=== PATIENT | female | born 1990 | race Caucasian/White ===

== ENCOUNTER 2016-08-08 12:38 | Emergency (ER) | payer OTHER ==
[~2016-08-08 12:38] MED LIST: /VITACHEW PO; ACET50TA GT; ACET50TA PO; IBUP600T26 PO; TUMS500C PO
[2016-08-08 13:36] LABS: CONTROL LINE UCG INT CTR LINE PRESENT
[2016-08-08] MEDS ORDERED: ONDANSETRON 4MG/2ML VIAL (J2405) As Ordered ONE (14:14)
[2016-08-08] MEDS ORDERED: KETOROLAC 30 MG/ML VIAL (J1885) As Ordered ONE (14:14)
[2016-08-08 14:21] LABS: BASO # 0.1 K/mm3 (0.0-0.2); BASO % 0.9 % (0.0-1.0); EOS # 0.1 K/mm3 (0.0-0.50); EOS % 1.2 % (0.0-3.0); LARGE UNSTAINED CELL # 0.1 K/mm3 (0.0-0.4); LARGE UNSTAINED CELL % 1.4 % (0.0-4.0); LYMPH # 2.6 K/mm3 (1.5-6.5); MEAN CORPUSCULAR HEMOGLOBIN 29.5 pg (27.0-33.0); MEAN CORPUSCULAR HGB CONC 34.4 g/dl (32.0-36.5); MEAN CORPUSCULAR VOLUME 85.8 fl (80.0-96.0); MONO # 0.4 K/mm3 (0.0-0.8); MONO % 5.7 % (0.0-5.0); NEUTROPHILS # 3.7 K/mm3 (1.8-7.7); NEUTROPHILS % 53.8 % (36.0-66.0); PLATELET COUNT, AUTOMATED 174 k/mm3 (150-450); RED CELL DISTRIBUTION WIDTH 12.7 % (11.5-14.5); WHITE BLOOD COUNT 6.9 K/mm3 (4.0-10.0)
--- NOTE | 2016-08-08 14:42 | REP ---
Clinical: Acute lower abdominal pain. Findings: Mural thickening and pericolonic stranding involving the sigmoid colon and small rounded area of fat along the anti mesenteric border of the sigmoid may reflect an acute epiploic appendagitis versus diverticulitis ( images 103 - 110). There is no associated bowel obstruction, free air to suggest perforation, drainable collection, significant free fluid or abscess. The remainder of the small large bowel is unremarkable. Liver, spleen, pancreas, gallbladder, bilateral adrenal glands and kidneys are normal. Pelvis demonstrates collapsed normal bladder and age-appropriate uterus/adnexa. No adenopathy. Abdominal aorta without aneurysm. Surrounding musculoskeletal structures are normal for age. Lung bases are clear. Impression: Acute epiploic appendagitis versus diverticulitis involving the mid sigmoid colon. No associated bowel obstruction, perforation, drainable collection or abscess. Signed by Arnold Fan MD 08/08/2016 02:34 P
[2016-08-08 14:54] LABS: ALBUMIN 3.9 GM/DL (3.2-5.2); ALBUMIN/GLOBULIN RATIO 1.15 (1.00-1.93); ALKALINE PHOSPHATASE 88 U/L (45-117); ALT/SGPT 19 U/L (12-78); AMYLASE 37 U/L (25-115); ANION GAP 8 MEQ/L (8-16); AST/SGOT 13 U/L (15-37); BILIRUBIN,DIRECT 0.1 MG/DL (0.0-0.2); BILIRUBIN,TOTAL 0.6 MG/DL (0.2-1.0); BLOOD UREA NITROGEN 7 MG/DL (7-18); CALCIUM LEVEL 8.9 MG/DL (8.5-10.1); CARBON DIOXIDE LEVEL 27 MEQ/L (21-32); CHLORIDE LEVEL 108 MEQ/L (98-107); GLOMERULAR FILTRATION RATE > 60.0 (>60); GLUCOSE, FASTING 84 MG/DL (70-105); POTASSIUM SERUM 3.6 MEQ/L (3.5-5.1); SODIUM LEVEL 143 MEQ/L (136-145); TOTAL PROTEIN 7.3 GM/DL (6.4-8.2)
[2016-08-08] MEDS ORDERED: CIPROFLOXACIN 500 MG TAB As Ordered ONE (15:32)
[2016-08-08] MEDS ORDERED: metroNIDAZOLE (FLAGYL) 250 MG TAB As Ordered ONE (15:32)
--- NOTE | 2016-08-08 15:40 | EDDOCDS ---
Nurse's Notes [facility] Name: Johanna Rodriguez Age: 26 yrs Sex: Female : 1990 Arrival Date: 08/08/2016 Time: 12:38 Bed I3 / M3 Private MD: Roxann Phan MD Diagnosis: Diverticulitis of large intestine without perforation or abscess without bleeding-mid sigmoid colon versus Acute epiploic appendagitis Presentation: 08/08 12:41 Presenting complaint: Patient states: RLQ and LLQ pain began two days ago, denies mlb1 N/V/D. Risk factors: the patient reports a small or scant amount of vaginal bleeding. Adult Sepsis Screening: The patient does not have new or worsening altered mentation. Patient's respiratory rate is less than 22. Systolic blood pressure is greater than 100. Patient has a qSOFA score of 0- Negative Sepsis Screen. Suicide/Homicide risk assessment- the patient denies having any suicidal and/or homicidal ideations and does not present with any other emotional, behavioral or mental health complaints. 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 Transition of care: patient was not received from another setting of care. 12:41 Acuity: NADINE Level 3 mlb1 12:41 Method Of Arrival: Walkin/Carried/Asstd mlb1 Triage Assessment: 12:43 General: Appears in no apparent distress, Behavior is appropriate for age, cooperative. mlb1 Pain: Location: right lower quadrant and left lower quadrant Pain currently is 9 out of 10 on a pain scale. HIV screening NA for this visit Offered previously. GI: Denies diarrhea, nausea, vomiting. : Reports vaginal bleeding that is spotty. 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 amoxicillin 500 mg Oral cap 1 cap every 12 hours 2. Depo-Provera Q- 3 months IM - PMHx: GERD; Hiatal Hernia; Migraine Headaches; - PSHx: Walt Fundoplication; - Social history: Smoking status: Patient states was never smoker of tobacco. No barriers to communication noted, The patient speaks fluent Czech, Speaks appropriately for age. - Family history: No immediate family members are acutely ill. - : The pt / caregiver states he / she is not on anticoagulants. Home medication list is obtained from the patient. - Exposure Risk Screening:: None identified. Screenin:51 Screening information is obtained from the patient. Fall risk: No risks identified. jc4 Assistance ADL's: requires no assistance with activities of daily living. Abuse/DV Screen: The patient / caregiver reports he/she is: not in a situation that causes fear, pain or injury. Nutritional screening: No deficits noted. Advance Directives: Currently, there is no health care proxy. There is no active DNR order. There is no living will. There is no Power of Home And Family Living Professor. home support is adequate. Assessment: 13:49 General: Appears in no apparent distress, Behavior is cooperative. General: Denies jc4 fever. Neurological: Level of Consciousness is awake, alert, Oriented to person, place, time. Cardiovascular: Heart tones S1 S2 present. Respiratory: Airway is patent Respiratory effort is even, unlabored, Respiratory pattern is regular, symmetrical, Breath sounds are clear bilaterally. GI: Abdomen is non- distended Bowel sounds present X 4 quads. Abd is tender to palpation in right lower quadrant and left lower quadrant. GI: Reports Denies diarrhea, nausea, vomiting. : Reports vaginal bleeding that is spotty. Derm: Skin is pink, warm & dry. 14:31 General: Appears in no apparent distress, comfortable. Neurological: No deficits noted. hs1 Respiratory: Airway is patent Respiratory effort is even, unlabored. Derm: Skin is pink, warm & dry. normal. 15:38 General: Appears in no apparent distress, comfortable, Behavior is appropriate for age, hs1 cooperative. Pain: Location: abdomen Pain currently is 6 out of 10 on a pain scale. Neurological: No deficits noted. Cardiovascular: Heart tones S1 S2 present Edema is absent. Respiratory: Airway is patent Respiratory effort is even, unlabored, Respiratory pattern is regular, symmetrical. GI: Abdomen is non- distended Abd is tender to palpation in right lower quadrant and left lower quadrant. Derm: No deficits noted. Vital Signs: 12:39 BP 131 / 63; Pulse 83; Resp 18; Temp 98.9; Pulse Ox 97% ; Weight 58.97 kg; Height 5 ft. elp 2 in. (157.48 cm); Pain 9/10; 15:33 BP 112 / 57; Pulse 54; Resp 20; Temp 97.5(O); Pulse Ox 98% on R/A; Pain 9/10; jml1 12:39 Body Mass Index 23.78 (58.97 kg, 157.48 cm) [facility] Vitals: 12:39 Log In Time: August 08, 2016 at 12:37. elp ED Course: 12:39 Patient visited by Kaylie Francis PCA. elp 12:39 Roxann Phan is Private Physician. elp 12:39 Patient moved to Waiting elp 12:40 Patient visited by Kaylie Francis PCA. elp 12:40 Patient moved to Pre RCE elp 12:41 Patient visited by Chad Ward, RN. mlb1 12:42 Triage Initiated mlb1 12:44 Patient visited by Chad Ward, RN. mlb1 13:44 [facility]am[facility]. ef1 13:44 Meredith Varghese MD is Attending Physician. ef1 13:46 Carie Gar RN is Primary Nurse. rn1 13:46 Patient moved to I3 / M3 rn1 13:48 The patient / caregiver is instructed regarding the plan of care and ED course. jc4 13:49 Patient visited by Anamaria Chavarria PA-C. ef1 14:00 Inserted saline lock: 20 gauge in left antecubital area and blood collected. The hs1 patient tolerated the procedure well. 14:13 Amylase Sent. hs1 14:13 Basic Metabolic Profile Sent. hs1 14:13 CBC with Diff Sent. hs1 14:13 Lipase Sent. hs1 14:13 Liver Profile Sent. hs1 14:22 Patient visited by Anamaria Chavarria PA-C. ef1 14:58 Patient visited by Alba Nickerson, MAU. hs1 15:02 CT ABD & PELVIS: No Contrast Returned. EDMS 15:17 Patient visited by Anamaria Chavarria PA-C. ef1 15:28 Roxann Phan is Referral Physician. ef1 15:28 Nj Watkins DO is Referral Physician. ef1 15:33 Patient visited by Elliott Wells. jml1 15:39 Discontinued IV lock intact, bleeding controlled, pressure dressing applied, No hs1 redness/swelling at site. No procedures done that require assistance. Administered Medications: 14:20 Drug: NS 0.9% 1000 ml [sodium chloride 0.9 % intravenous solution] Route: IV; Rate: hs1 bolus; Site: left antecubital; 15:38 Follow up: IV Status: Completed infusion; IV Intake: 1000ml hs1 14:20 Drug: Ondansetron 4 mg [ondansetron HCl 2 mg/mL intravenous solution (2 mL)] Route: hs1 IVP; Site: left antecubital; 14:20 Drug: ketorolac 30 mg [ketorolac 30 mg/mL (1 mL) injection solution (1 mL)] Route: IVP; hs1 Site: left antecubital; 15:38 Drug: Ciprofloxacin 500 mg [ciprofloxacin 500 mg tablet (1 tabs)] Route: PO; hs1 15:38 Drug: metroNIDAZOLE 500 mg [metronidazole 250 mg tablet (2 tabs)] Route: PO; hs1 Intake: 15:38 IV: 1000.00ml; Total: 1000.00ml. hs1 Order Results: Lab Order: UA; SPEC'M 08/08/16 13:05 Test: APPEARANCE, URINE; Value: HAZY; Range: CLEAR; Status: F Test: COLOR, URINE; Value: YELLOW; Range: YELLOW; Status: F Test: PH,URINE; Value: 6.0; Range: 5.0-9.0; Units: UNITS; Status: F Test: SPECIFIC GRAVITY URINE AUTO; Value: 1.020; Range: 1.002-1.035; Status: F Test: PROTEIN, URINE AUTO; Value: NEGATIVE; Range: NEGATIVE; Units: mg/dL; Status: F Test: GLUCOSE, URINE (UA) AUTO; Value: NEGATIVE; Range: NEGATIVE; Units: mg/dL; Status: F Test: KETONE, URINE AUTO; Value: NEGATIVE; Range: NEGATIVE; Units: mg/dL; Status: F Test: UROBILINOGEN, URINE AUTO; Value: 2.0; Range: 0.0-2.0; Abnormal: Above high normal; Units: mg/dL; Status: F Test: BILIRUBIN, URINE AUTO; Value: NEGATIVE; Range: NEGATIVE; Status: F Test: NITRITE, URINE AUTO; Value: NEGATIVE; Range: NEGATIVE; Status: F Test: LEUKOCYTE ESTERASE, URINE AUTO; Value: TRACE; Range: NEGATIVE; Abnormal: Above high normal; Status: F Test: BLOOD, URINE BLOOD; Value: 2+; Range: NEGATIVE; Abnormal: Above high normal; Status: F Test: SPERM, URINE AUTO; Range: NONE; Status: I Test: WBC, URINE AUTO; Value: 1; Range: 0-3; Units: /HPF; Status: F Test: RBC, URINE AUTO; Value: 8; Range: 0-3; Abnormal: Above high normal; Units: /HPF; Status: F Test: BACTERIA, URINE AUTO; Value: NEGATIVE; Range: NEGATIVE; Status: F Test: SQUAMOUS EPITHELIAL CELL UR AU; Value: 2; Range: 0-6; Units: /HPF; Status: F Test: MUCUS, URINE; Value: LARGE; Range: NEGATIVE; Status: F Test: HYALINE CAST, URINE AUTO; Value: 0; Range: 0-1; Units: /LPF; Status: F Lab Order: UCG- In Lab; [facility]' 08/08/16 13:05 Test: URINE PREG TEST; Value: NEGATIVE; Range: NEGATIVE; Status: F Lab Order: Amylase; [facility] 08/08/16 14:11 Test: AMYLASE; Value: 37; Range: 25-115; Units: U/L; Status: F Lab Order: Basic Metabolic Profile; [facility] 08/08/16 14:11 Test: GLUCOSE, FASTING; Value: 84; Range: 70-105; Units: MG/DL; Status: F Test: BLOOD UREA NITROGEN; Value: 7; Range: 7-18; Units: MG/DL; Status: F Test: CREATININE FOR GFR; Value: 0.70; Range: 0.55-1.02; Units: MG/DL; Status: F Test: GLOMERULAR FILTRATION RATE; Value: > 60.0; Range: >60; Status: F Test: SODIUM LEVEL; Value: 143; Range: 136-145; Units: MEQ/L; Status: F Test: POTASSIUM SERUM; Value: 3.6; Range: 3.5-5.1; Units: MEQ/L; Status: F Test: CHLORIDE LEVEL; Value: 108; Range: 98-107; Abnormal: Above high normal; Units: MEQ/L; Status: F Test: CARBON DIOXIDE LEVEL; Value: 27; Range: 21-32; Units: MEQ/L; Status: F Test: ANION GAP; Value: 8; Range: 8-16; Units: MEQ/L; Status: F Test: CALCIUM LEVEL; Value: 8.9; Range: 8.5-10.1; Units: MG/DL; Status: F Test Note: ; Units are mL/min/1.73 m2 Chronic Kidney Disease Staging per NKF: Stage I & II GFR >=60 Normal to Mildly Decreased Stage III GFR 30-59 Moderately Decreased Stage IV GFR 15-29 Severely Decreased Stage V GFR <15 Very Little GFR Left ESRD GFR <15 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 Lab Order: CBC with Diff; SPEC'M 08/08/16 14:11 Test: WHITE BLOOD COUNT; Value: 6.9; Range: 4.0-10.0; Units: K/mm3; Status: F Test: RED BLOOD COUNT; Value: 4.29; Range: 4.00-5.40; Units: M/mm3; Status: F Test: HEMOGLOBIN; Value: 12.7; Range: 12.0-16.0; Units: g/dl; Status: F Test: HEMATOCRIT; Value: 36.8; Range: 36.0-47.0; Units: %; Status: F Test: MEAN CORPUSCULAR VOLUME; Value: 85.8; Range: 80.0-96.0; Units: fl; Status: F Test: MEAN CORPUSCULAR HEMOGLOBIN; Value: 29.5; Range: 27.0-33.0; Units: pg; Status: F Test: MEAN CORPUSCULAR HGB CONC; Value: 34.4; Range: 32.0-36.5; Units: g/dl; Status: F Test: RED CELL DISTRIBUTION WIDTH; Value: 12.7; Range: 11.5-14.5; Units: %; Status: F Test: PLATELET COUNT, AUTOMATED; Value: 174; Range: 150-450; Units: k/mm3; Status: F Test: NEUTROPHILS %; Value: 53.8; Range: 36.0-66.0; Units: %; Status: F Test: LYMPH %; Value: 37.0; Range: 24.0-44.0; Units: %; Status: F Test: MONO %; Value: 5.7; Range: 0.0-5.0; Abnormal: Above high normal; Units: %; Status: F Test: EOS %; Value: 1.2; Range: 0.0-3.0; Units: %; Status: F Test: BASO %; Value: 0.9; Range: 0.0-1.0; Units: %; Status: F Test: LARGE UNSTAINED CELL %; Value: 1.4; Range: 0.0-4.0; Units: %; Status: F Test: NEUTROPHILS #; Value: 3.7; Range: 1.8-7.7; Units: K/mm3; Status: F Test: LYMPH #; Value: 2.6; Range: 1.5-6.5; Units: K/mm3; Status: F Test: MONO #; Value: 0.4; Range: 0.0-0.8; Units: K/mm3; Status: F Test: EOS #; Value: 0.1; Range: 0.0-0.50; Units: K/mm3; Status: F Test: BASO #; Value: 0.1; Range: 0.0-0.2; Units: K/mm3; Status: F Test: LARGE UNSTAINED CELL #; Value: 0.1; Range: 0.0-0.4; Units: K/mm3; Status: F Lab Order: Lipase; SPEC'M 08/08/16 14:11 Test: LIPASE; Value: 84; Range: 73-393; Units: U/L; Status: F Lab Order: Liver Profile; SPEC' 08/08/16 14:11 Test: AST/SGOT; Value: 13; Range: 15-37; Abnormal: Below low normal; Units: U/L; Status: F Test: ALT/SGPT; Value: 19; Range: 12-78; Units: U/L; Status: F Test: ALKALINE PHOSPHATASE; Value: 88; Range: 45-117; Units: U/L; Status: F Test: BILIRUBIN,TOTAL; Value: 0.6; Range: 0.2-1.0; Units: MG/DL; Status: F Test: BILIRUBIN,DIRECT; Value: 0.1; Range: 0.0-0.2; Units: MG/DL; Status: F Test: TOTAL PROTEIN; Value: 7.3; Range: 6.4-8.2; Units: GM/DL; Status: F Test: ALBUMIN; Value: 3.9; Range: 3.2-5.2; Units: GM/DL; Status: F Test: ALBUMIN/GLOBULIN RATIO; Value: 1.15; Range: 1.00-1.93; Status: F Radiology Order: CT ABD & PELVIS: No Contrast Test: CT ABD & PELVIS: No Contrast REASON FOR EXAMINATION: Abdomen Pain; Clinical: Acute lower abdominal pain.; ; Findings:; Mural thickening and pericolonic stranding involving the sigmoid colon and small; rounded area of fat along the anti mesenteric border of the sigmoid may reflect; an acute epiploic appendagitis versus diverticulitis ( images 103 - 110). There; is no associated bowel obstruction, free air to suggest perforation, drainable; collection, significant free fluid or abscess. The remainder of the small large; bowel is unremarkable.; ; Liver, spleen, pancreas, gallbladder, bilateral adrenal glands and kidneys are; normal. Pelvis demonstrates collapsed normal bladder and age-appropriate; uterus/adnexa. No adenopathy. Abdominal aorta without aneurysm. Surrounding; musculoskeletal structures are normal for age. Lung bases are clear.; ; Impression:; ; Acute epiploic appendagitis versus diverticulitis involving the mid sigmoid; colon. No associated bowel obstruction, perforation, drainable collection or; abscess.; ; ; ; Signed by; Arnold Fan MD 08/08/2016 02:34 P; Outcome: 15:28 Discharge ordered by Provider. ef1 15:39 Discharge Assessment: Patient awake, alert and oriented x 3. No cognitive and/or hs1 functional deficits noted. Patient verbalized understanding of disposition instructions. patient administered narcotics - no. The following High Risk Discharge criteria are identified: None. Discharged to home ambulatory. Condition: stable. Discharge instructions given to patient, Instructed on discharge instructions, follow up and referral plans. medication usage, Demonstrated understanding of instructions, medications, Pt was receptive of discharge instructions/ teaching. Prescriptions given X 5. CT Study completed. Property sent home with patient. 15:39 Patient left the ED. hs1 Signatures: Dispatcher [employer] EDME Chad Ward RN RN mlb1 Anamaria Chavarria, PADavidC PA-C ef1 Alba Nickerson RN RN hs1 Carie Gar RN RN jc4 Elliott Wells jmKaylie Brown, JOSE LUIS BOAT CARPENTER MECHANIC elp Samuel, Randal rn1 MTDD
--- NOTE | 2016-08-08 15:40 | EDDOCDS ---
Physician Documentation [facility] Name: Johanna Rodriguez Age: 26 yrs Sex: Female : 1990 Arrival Date: 08/08/2016 Time: 12:38 Bed I3 / M3 Private MD: Roxann Phan MD Disposition: 08/08/16 15:28 Discharged to Home/Self Care. Impression: Diverticulitis of large intestine without perforation or abscess without bleeding - mid sigmoid colon versus Acute epiploic appendagitis. - Condition is Stable. - Discharge Instructions: Diverticulitis, [id number]. - Prescriptions for Cipro 500 mg Oral Tablet - take 1 tablet by ORAL route every 12 hours for 10 days; 20 tablet. Flagyl 500 mg Oral Tablet - take 1 tablet by ORAL route every 12 hours for 10 days; 20 tablet. Naprosyn 500 mg Oral Tablet - take 1 tablet by ORAL route 2 times per day take with food; 30 tablet. ZOFRAN ODT 4 mg - dissolve 1 tablet by ORAL route 4 times per day As needed do not chew, do not swallow whole; 10 tablet. Percocet 5- 325 mg Oral Tablet - take 1 tablet by ORAL route every 6 hours As needed MDD: 4 tabs; 10 tablet. - Medication Reconciliation, Local Pharmacy Hours form. - Follow up: Roxann Phan; When: 1 - 2 days; Reason: Recheck today's complaints, Continuance of care. Follow up: Emergency Department; Reason: Worsening of conditions. Follow up: Nj Watkins; When: 1 - 2 days; Reason: Further diagnostic work-up, Recheck today's complaints, Continuance of care. - Problem is new. - Symptoms have improved. Historical: - Allergies: PENICILLINS (Vomit); - Home Meds: 1. amoxicillin 500 mg Oral cap 1 cap every 12 hours 2. Depo-Provera Q- 3 months IM - PMHx: GERD; Hiatal Hernia; Migraine Headaches; - PSHx: Walt Fundoplication; - Social history: Smoking status: Patient states was never smoker of tobacco. No barriers to communication noted, The patient speaks fluent Urdu, Speaks appropriately for age. - Family history: No immediate family members are acutely ill. - : The pt / caregiver states he / she is not on anticoagulants. Home medication list is obtained from the patient. - Exposure Risk Screening:: None identified. 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 2 in. (157.48 cm); Pain 9/10; 15:33 BP 112 / 57; Pulse 54; Resp 20; Temp 97.5(O); Pulse Ox 98% on R/A; Pain 9/10; jml1 12:39 Body Mass Index 23.78 (58.97 kg, 157.48 cm) elp MDM: 12:56 UA Ordered. EDMS 12:56 UCG- In Lab Ordered. EDMS 12:56 Urine Culture Ordered. EDMS 13:52 UA Reviewed. ef1 13:52 UCG- In Lab Reviewed. ef1 14:00 NS 0.9% 1000 ml IV at bolus once ordered. ef1 14:00 Ondansetron 4 mg IVP once ordered. ef1 14:00 ketorolac 30 mg IVP once ordered. ef1 14:00 IV Saline Lock ordered. ef1 14:00 Undress patient appropriately for examination ordered. ef1 14:01 Amylase Ordered. EDMS 14:01 Basic Metabolic Profile Ordered. EDMS 14:01 CBC with Diff Ordered. EDMS 14:01 Lipase Ordered. EDMS 14:01 Liver Profile Ordered. EDMS 14:01 CT ABD & PELVIS: No Contrast Ordered. EDMS 14:01 NOTHING BY MOUTH+DIET ordered. EDMS 15:00 Basic Metabolic Profile Reviewed. ef1 15:00 CBC with Diff Reviewed. ef1 15:00 Liver Profile Reviewed. ef1 15:00 Amylase Reviewed. ef1 15:00 Lipase Reviewed. ef1 15:17 CT ABD & PELVIS: No Contrast Reviewed. ef1 15:28 Ciprofloxacin 500 mg PO once ordered. ef1 15:28 metroNIDAZOLE 500 mg PO once ordered. ef1 Administered Medications: 14:20 Drug: NS 0.9% 1000 ml [sodium chloride 0.9 % intravenous solution] Route: IV; Rate: hs1 bolus; Site: left antecubital; 15:38 Follow up: IV Status: Completed infusion; IV Intake: 1000ml hs1 14:20 Drug: Ondansetron 4 mg [ondansetron HCl 2 mg/mL intravenous solution (2 mL)] Route: hs1 IVP; Site: left antecubital; 14:20 Drug: ketorolac 30 mg [ketorolac 30 mg/mL (1 mL) injection solution (1 mL)] Route: IVP; hs1 Site: left antecubital; 15:38 Drug: Ciprofloxacin 500 mg [ciprofloxacin 500 mg tablet (1 tabs)] Route: PO; hs1 15:38 Drug: metroNIDAZOLE 500 mg [metronidazole 250 mg tablet (2 tabs)] Route: PO; hs1 Signatures: Dispatcher [employer] EDChad Hylton RN RN mlb1 Anamaria Chavarria PA-C PAJuan ef1 Alba Nickerson RN RN hs1 Carie Gar RN RN jc4 MTDD
--- NOTE | 2016-08-10 16:40 | EDDOCDS ---
Nurse's Notes [facility] Name: Johanna Rodriguez Age: 26 yrs Sex: Female : 1990 Arrival Date: 08/08/2016 Time: 12:38 Bed I3 / M3 Private MD: Roxann Phan MD Diagnosis: Diverticulitis of large intestine without perforation or abscess without bleeding-mid sigmoid colon versus Acute epiploic appendagitis Presentation: 08/08 12:41 Presenting complaint: Patient states: RLQ and LLQ pain began two days ago, denies mlb1 N/V/D. Risk factors: the patient reports a small or scant amount of vaginal bleeding. Adult Sepsis Screening: The patient does not have new or worsening altered mentation. Patient's respiratory rate is less than 22. Systolic blood pressure is greater than 100. Patient has a qSOFA score of 0- Negative Sepsis Screen. Suicide/Homicide risk assessment- the patient denies having any suicidal and/or homicidal ideations and does not present with any other emotional, behavioral or mental health complaints. 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 Transition of care: patient was not received from another setting of care. 12:41 Acuity: NADINE Level 3 mlb1 12:41 Method Of Arrival: Walkin/Carried/Asstd mlb1 Triage Assessment: 12:43 General: Appears in no apparent distress, Behavior is appropriate for age, cooperative. mlb1 Pain: Location: right lower quadrant and left lower quadrant Pain currently is 9 out of 10 on a pain scale. HIV screening NA for this visit Offered previously. GI: Denies diarrhea, nausea, vomiting. : Reports vaginal bleeding that is spotty. 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 amoxicillin 500 mg Oral cap 1 cap every 12 hours 2. Depo-Provera Q- 3 months IM - PMHx: GERD; Hiatal Hernia; Migraine Headaches; - PSHx: Walt Fundoplication; - Social history: Smoking status: Patient states was never smoker of tobacco. No barriers to communication noted, The patient speaks fluent Wolof, Speaks appropriately for age. - Family history: No immediate family members are acutely ill. - : The pt / caregiver states he / she is not on anticoagulants. Home medication list is obtained from the patient. - Exposure Risk Screening:: None identified. Screenin:51 Screening information is obtained from the patient. Fall risk: No risks identified. jc4 Assistance ADL's: requires no assistance with activities of daily living. Abuse/DV Screen: The patient / caregiver reports he/she is: not in a situation that causes fear, pain or injury. Nutritional screening: No deficits noted. Advance Directives: Currently, there is no health care proxy. There is no active DNR order. There is no living will. There is no Power of Culinary Specialist. home support is adequate. Assessment: 13:49 General: Appears in no apparent distress, Behavior is cooperative. General: Denies jc4 fever. Neurological: Level of Consciousness is awake, alert, Oriented to person, place, time. Cardiovascular: Heart tones S1 S2 present. Respiratory: Airway is patent Respiratory effort is even, unlabored, Respiratory pattern is regular, symmetrical, Breath sounds are clear bilaterally. GI: Abdomen is non- distended Bowel sounds present X 4 quads. Abd is tender to palpation in right lower quadrant and left lower quadrant. GI: Reports Denies diarrhea, nausea, vomiting. : Reports vaginal bleeding that is spotty. Derm: Skin is pink, warm & dry. 14:31 General: Appears in no apparent distress, comfortable. Neurological: No deficits noted. hs1 Respiratory: Airway is patent Respiratory effort is even, unlabored. Derm: Skin is pink, warm & dry. normal. 15:38 General: Appears in no apparent distress, comfortable, Behavior is appropriate for age, hs1 cooperative. Pain: Location: abdomen Pain currently is 6 out of 10 on a pain scale. Neurological: No deficits noted. Cardiovascular: Heart tones S1 S2 present Edema is absent. Respiratory: Airway is patent Respiratory effort is even, unlabored, Respiratory pattern is regular, symmetrical. GI: Abdomen is non- distended Abd is tender to palpation in right lower quadrant and left lower quadrant. Derm: No deficits noted. Vital Signs: 12:39 BP 131 / 63; Pulse 83; Resp 18; Temp 98.9; Pulse Ox 97% ; Weight 58.97 kg; Height 5 ft. elp 2 in. (157.48 cm); Pain 9/10; 15:33 BP 112 / 57; Pulse 54; Resp 20; Temp 97.5(O); Pulse Ox 98% on R/A; Pain 9/10; jml1 12:39 Body Mass Index 23.78 (58.97 kg, 157.48 cm) [facility] Vitals: 12:39 Log In Time: August 08, 2016 at 12:37. elp ED Course: 12:39 Patient visited by Kaylie Francis PCA. elp 12:39 Roxann Phan is Private Physician. elp 12:39 Patient moved to Waiting elp 12:40 Patient visited by Kaylie Francis PCA. elp 12:40 Patient moved to Pre RCE elp 12:41 Patient visited by Chad Ward, RN. mlb1 12:42 Triage Initiated mlb1 12:44 Patient visited by Chad Ward, RN. mlb1 13:44 Anamaria [facility] ef1 13:44 Meredith Varghese MD is Attending Physician. ef1 13:46 Carie Gar, MAU is Primary Nurse. rn1 13:46 Patient moved to I3 / M3 rn1 13:48 The patient / caregiver is instructed regarding the plan of care and ED course. jc4 13:49 Patient visited by Anamaria Chavarria PA-C. ef1 14:00 Inserted saline lock: 20 gauge in left antecubital area and blood collected. The hs1 patient tolerated the procedure well. 14:13 Amylase Sent. hs1 14:13 Basic Metabolic Profile Sent. hs1 14:13 CBC with Diff Sent. hs1 14:13 Lipase Sent. hs1 14:13 Liver Profile Sent. hs1 14:22 Patient visited by Anamaria Chavarria PA-C. ef1 14:58 Patient visited by Alba Nickerson, MAU. hs1 15:02 CT ABD & PELVIS: No Contrast Returned. EDMS 15:17 Patient visited by Anamaria Chavarria PA-C. ef1 15:28 Roxann Phan is Referral Physician. ef1 15:28 Nj Watkins DO is Referral Physician. ef1 15:33 Patient visited by Elliott Wells. jml1 15:39 Discontinued IV lock intact, bleeding controlled, pressure dressing applied, No hs1 redness/swelling at site. No procedures done that require assistance. 15:49 [facility] [place] [facility] Payment Agreement was scanned into [employer] and attached to record. ks16 08/09 05:51 T-Sheet-- Draft Copy was scanned into [employer] and attached to record. hs2 12:50 Radiology Report was scanned into [employer] and attached to record. gb Administered Medications: 08/08 14:20 Drug: NS 0.9% 1000 ml [sodium chloride 0.9 % intravenous solution] Route: IV; Rate: hs1 bolus; Site: left antecubital; 15:38 Follow up: IV Status: Completed infusion; IV Intake: 1000ml hs1 14:20 Drug: Ondansetron 4 mg [ondansetron HCl 2 mg/mL intravenous solution (2 mL)] Route: hs1 IVP; Site: left antecubital; 14:20 Drug: ketorolac 30 mg [ketorolac 30 mg/mL (1 mL) injection solution (1 mL)] Route: IVP; hs1 Site: left antecubital; 15:38 Drug: Ciprofloxacin 500 mg [ciprofloxacin 500 mg tablet (1 tabs)] Route: PO; hs1 15:38 Drug: metroNIDAZOLE 500 mg [metronidazole 250 mg tablet (2 tabs)] Route: PO; hs1 Intake: 15:38 IV: 1000.00ml; Total: 1000.00ml. hs1 Order Results: Lab Order: UA; SPEC'M 08/08/16 13:05 Test: APPEARANCE, URINE; Value: HAZY; Range: CLEAR; Status: F Test: COLOR, URINE; Value: YELLOW; Range: YELLOW; Status: F Test: PH,URINE; Value: 6.0; Range: 5.0-9.0; Units: UNITS; Status: F Test: SPECIFIC GRAVITY URINE AUTO; Value: 1.020; Range: 1.002-1.035; Status: F Test: PROTEIN, URINE AUTO; Value: NEGATIVE; Range: NEGATIVE; Units: mg/dL; Status: F Test: GLUCOSE, URINE (UA) AUTO; Value: NEGATIVE; Range: NEGATIVE; Units: mg/dL; Status: F Test: KETONE, URINE AUTO; Value: NEGATIVE; Range: NEGATIVE; Units: mg/dL; Status: F Test: UROBILINOGEN, URINE AUTO; Value: 2.0; Range: 0.0-2.0; Abnormal: Above high normal; Units: mg/dL; Status: F Test: BILIRUBIN, URINE AUTO; Value: NEGATIVE; Range: NEGATIVE; Status: F Test: NITRITE, URINE AUTO; Value: NEGATIVE; Range: NEGATIVE; Status: F Test: LEUKOCYTE ESTERASE, URINE AUTO; Value: TRACE; Range: NEGATIVE; Abnormal: Above high normal; Status: F Test: BLOOD, URINE BLOOD; Value: 2+; Range: NEGATIVE; Abnormal: Above high normal; Status: F Test: SPERM, URINE AUTO; Range: NONE; Status: I Test: WBC, URINE AUTO; Value: 1; Range: 0-3; Units: /HPF; Status: F Test: RBC, URINE AUTO; Value: 8; Range: 0-3; Abnormal: Above high normal; Units: /HPF; Status: F Test: BACTERIA, URINE AUTO; Value: NEGATIVE; Range: NEGATIVE; Status: F Test: SQUAMOUS EPITHELIAL CELL UR AU; Value: 2; Range: 0-6; Units: /HPF; Status: F Test: MUCUS, URINE; Value: LARGE; Range: NEGATIVE; Status: F Test: HYALINE CAST, URINE AUTO; Value: 0; Range: 0-1; Units: /LPF; Status: F Lab Order: Urine Culture; [facility]' 08/08/16 13:05 Test: URINE CULTURE; Value: URINE CULTURE RESULT NO GROWTH; Status: F Lab Order: UCG- In Lab; [facility] 08/08/16 13:05 Test: URINE PREG TEST; Value: NEGATIVE; Range: NEGATIVE; Status: F Lab Order: Amylase; [facility]' 08/08/16 14:11 Test: AMYLASE; Value: 37; Range: 25-115; Units: U/L; Status: F Lab Order: Basic Metabolic Profile; [facility] 08/08/16 14:11 Test: GLUCOSE, FASTING; Value: 84; Range: 70-105; Units: MG/DL; Status: F Test: BLOOD UREA NITROGEN; Value: 7; Range: 7-18; Units: MG/DL; Status: F Test: CREATININE FOR GFR; Value: 0.70; Range: 0.55-1.02; Units: MG/DL; Status: F Test: GLOMERULAR FILTRATION RATE; Value: > 60.0; Range: >60; Status: F Test: SODIUM LEVEL; Value: 143; Range: 136-145; Units: MEQ/L; Status: F Test: POTASSIUM SERUM; Value: 3.6; Range: 3.5-5.1; Units: MEQ/L; Status: F Test: CHLORIDE LEVEL; Value: 108; Range: 98-107; Abnormal: Above high normal; Units: MEQ/L; Status: F Test: CARBON DIOXIDE LEVEL; Value: 27; Range: 21-32; Units: MEQ/L; Status: F Test: ANION GAP; Value: 8; Range: 8-16; Units: MEQ/L; Status: F Test: CALCIUM LEVEL; Value: 8.9; Range: 8.5-10.1; Units: MG/DL; Status: F Test Note: ; Units are mL/min/1.73 m2 Chronic Kidney Disease Staging per NKF: Stage I & II GFR >=60 Normal to Mildly Decreased Stage III GFR 30-59 Moderately Decreased Stage IV GFR 15-29 Severely Decreased Stage V GFR <15 Very Little GFR Left ESRD GFR <15 on WIRE ANNEALER Lab Order: CBC with Diff; SPEC'M 08/08/16 14:11 Test: WHITE BLOOD COUNT; Value: 6.9; Range: 4.0-10.0; Units: K/mm3; Status: F Test: RED BLOOD COUNT; Value: 4.29; Range: 4.00-5.40; Units: M/mm3; Status: F Test: HEMOGLOBIN; Value: 12.7; Range: 12.0-16.0; Units: g/dl; Status: F Test: HEMATOCRIT; Value: 36.8; Range: 36.0-47.0; Units: %; Status: F Test: MEAN CORPUSCULAR VOLUME; Value: 85.8; Range: 80.0-96.0; Units: fl; Status: F Test: MEAN CORPUSCULAR HEMOGLOBIN; Value: 29.5; Range: 27.0-33.0; Units: pg; Status: F Test: MEAN CORPUSCULAR HGB CONC; Value: 34.4; Range: 32.0-36.5; Units: g/dl; Status: F Test: RED CELL DISTRIBUTION WIDTH; Value: 12.7; Range: 11.5-14.5; Units: %; Status: F Test: PLATELET COUNT, AUTOMATED; Value: 174; Range: 150-450; Units: k/mm3; Status: F Test: NEUTROPHILS %; Value: 53.8; Range: 36.0-66.0; Units: %; Status: F Test: LYMPH %; Value: 37.0; Range: 24.0-44.0; Units: %; Status: F Test: MONO %; Value: 5.7; Range: 0.0-5.0; Abnormal: Above high normal; Units: %; Status: F Test: EOS %; Value: 1.2; Range: 0.0-3.0; Units: %; Status: F Test: BASO %; Value: 0.9; Range: 0.0-1.0; Units: %; Status: F Test: LARGE UNSTAINED CELL %; Value: 1.4; Range: 0.0-4.0; Units: %; Status: F Test: NEUTROPHILS #; Value: 3.7; Range: 1.8-7.7; Units: K/mm3; Status: F Test: LYMPH #; Value: 2.6; Range: 1.5-6.5; Units: K/mm3; Status: F Test: MONO #; Value: 0.4; Range: 0.0-0.8; Units: K/mm3; Status: F Test: EOS #; Value: 0.1; Range: 0.0-0.50; Units: K/mm3; Status: F Test: BASO #; Value: 0.1; Range: 0.0-0.2; Units: K/mm3; Status: F Test: LARGE UNSTAINED CELL #; Value: 0.1; Range: 0.0-0.4; Units: K/mm3; Status: F Lab Order: Lipase; SPEC'M 08/08/16 14:11 Test: LIPASE; Value: 84; Range: 73-393; Units: U/L; Status: F Lab Order: Liver Profile; SPEC'M 08/08/16 14:11 Test: AST/SGOT; Value: 13; Range: 15-37; Abnormal: Below low normal; Units: U/L; Status: F Test: ALT/SGPT; Value: 19; Range: 12-78; Units: U/L; Status: F Test: ALKALINE PHOSPHATASE; Value: 88; Range: 45-117; Units: U/L; Status: F Test: BILIRUBIN,TOTAL; Value: 0.6; Range: 0.2-1.0; Units: MG/DL; Status: F Test: BILIRUBIN,DIRECT; Value: 0.1; Range: 0.0-0.2; Units: MG/DL; Status: F Test: TOTAL PROTEIN; Value: 7.3; Range: 6.4-8.2; Units: GM/DL; Status: F Test: ALBUMIN; Value: 3.9; Range: 3.2-5.2; Units: GM/DL; Status: F Test: ALBUMIN/GLOBULIN RATIO; Value: 1.15; Range: 1.00-1.93; Status: F Radiology Order: CT ABD & PELVIS: No Contrast Test: CT ABD & PELVIS: No Contrast REASON FOR EXAMINATION: Abdomen Pain; Clinical: Acute lower abdominal pain.; ; Findings:; Mural thickening and pericolonic stranding involving the sigmoid colon and small; rounded area of fat along the anti mesenteric border of the sigmoid may reflect; an acute epiploic appendagitis versus diverticulitis ( images 103 - 110). There; is no associated bowel obstruction, free air to suggest perforation, drainable; collection, significant free fluid or abscess. The remainder of the small large; bowel is unremarkable.; ; Liver, spleen, pancreas, gallbladder, bilateral adrenal glands and kidneys are; normal. Pelvis demonstrates collapsed normal bladder and age-appropriate; uterus/adnexa. No adenopathy. Abdominal aorta without aneurysm. Surrounding; musculoskeletal structures are normal for age. Lung bases are clear.; ; Impression:; ; Acute epiploic appendagitis versus diverticulitis involving the mid sigmoid; colon. No associated bowel obstruction, perforation, drainable collection or; abscess.; ; ; ; Signed by; Arnlod Fan MD 08/08/2016 02:34 P; Outcome: 15:28 Discharge ordered by Provider. ef1 15:39 Discharge Assessment: Patient awake, alert and oriented x 3. No cognitive and/or hs1 functional deficits noted. Patient verbalized understanding of disposition instructions. patient administered narcotics - no. The following High Risk Discharge criteria are identified: None. Discharged to home ambulatory. Condition: stable. Discharge instructions given to patient, Instructed on discharge instructions, follow up and referral plans. medication usage, Demonstrated understanding of instructions, medications, Pt was receptive of discharge instructions/ teaching. Prescriptions given X 5. CT Study completed. Property sent home with patient. 15:39 Patient left the ED. hs1 Signatures: Dispatcher [employer] EDMS Nina Harrison, Reg Reg gb Chad Ward RN RN mlb1 Anamaria Chavarria, PA-C PA-C ef1 Alba Nickerson RN RN hs1 Carie Gar RN RN jc4 Elliott Wells jml1 Kaylie Francis, ORCHARD MANAGER ORCHARD MANAGER Randal Monique rn1 Romina Mendez, Reg Reg ks16 Jenny Pritchett, Reg Reg hs2 Chart Complete MTDD
--- NOTE | 2016-08-10 16:40 | EDDOCDS ---
Physician Documentation [facility] Name: Johanna Rodriguez Age: 26 yrs Sex: Female : 1990 Arrival Date: 08/08/2016 Time: 12:38 Bed I3 / M3 Private MD: Roxann Phan MD Disposition: 08/08/16 15:28 Discharged to Home/Self Care. Impression: Diverticulitis of large intestine without perforation or abscess without bleeding - mid sigmoid colon versus Acute epiploic appendagitis. - Condition is Stable. - Discharge Instructions: Diverticulitis, [id number]. - Prescriptions for Cipro 500 mg Oral Tablet - take 1 tablet by ORAL route every 12 hours for 10 days; 20 tablet. Flagyl 500 mg Oral Tablet - take 1 tablet by ORAL route every 12 hours for 10 days; 20 tablet. Naprosyn 500 mg Oral Tablet - take 1 tablet by ORAL route 2 times per day take with food; 30 tablet. ZOFRAN ODT 4 mg - dissolve 1 tablet by ORAL route 4 times per day As needed do not chew, do not swallow whole; 10 tablet. Percocet 5- 325 mg Oral Tablet - take 1 tablet by ORAL route every 6 hours As needed MDD: 4 tabs; 10 tablet. - Medication Reconciliation, Local Pharmacy Hours form. - Follow up: Roxann Phan; When: 1 - 2 days; Reason: Recheck today's complaints, Continuance of care. Follow up: Emergency Department; Reason: Worsening of conditions. Follow up: Nj Watkins; When: 1 - 2 days; Reason: Further diagnostic work-up, Recheck today's complaints, Continuance of care. - Problem is new. - Symptoms have improved. Historical: - Allergies: PENICILLINS (Vomit); - Home Meds: 1. amoxicillin 500 mg Oral cap 1 cap every 12 hours 2. Depo-Provera Q- 3 months IM - PMHx: GERD; Hiatal Hernia; Migraine Headaches; - PSHx: Walt Fundoplication; - Social history: Smoking status: Patient states was never smoker of tobacco. No barriers to communication noted, The patient speaks fluent Icelandic, Speaks appropriately for age. - Family history: No immediate family members are acutely ill. - : The pt / caregiver states he / she is not on anticoagulants. Home medication list is obtained from the patient. - Exposure Risk Screening:: None identified. 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 2 in. (157.48 cm); Pain 9/10; 15:33 BP 112 / 57; Pulse 54; Resp 20; Temp 97.5(O); Pulse Ox 98% on R/A; Pain 9/10; jml1 12:39 Body Mass Index 23.78 (58.97 kg, 157.48 cm) elp MDM: 12:56 UA Ordered. EDMS 12:56 UCG- In Lab Ordered. EDMS 12:56 Urine Culture Ordered. EDMS 13:52 UA Reviewed. ef1 13:52 UCG- In Lab Reviewed. ef1 14:00 NS 0.9% 1000 ml IV at bolus once ordered. ef1 14:00 Ondansetron 4 mg IVP once ordered. ef1 14:00 ketorolac 30 mg IVP once ordered. ef1 14:00 IV Saline Lock ordered. ef1 14:00 Undress patient appropriately for examination ordered. ef1 14:01 Amylase Ordered. EDMS 14:01 Basic Metabolic Profile Ordered. EDMS 14:01 CBC with Diff Ordered. EDMS 14:01 Lipase Ordered. EDMS 14:01 Liver Profile Ordered. EDMS 14:01 CT ABD & PELVIS: No Contrast Ordered. EDMS 14:01 NOTHING BY MOUTH+DIET ordered. EDMS 15:00 Basic Metabolic Profile Reviewed. ef1 15:00 CBC with Diff Reviewed. ef1 15:00 Liver Profile Reviewed. ef1 15:00 Amylase Reviewed. ef1 15:00 Lipase Reviewed. ef1 15:17 CT ABD & PELVIS: No Contrast Reviewed. ef1 15:28 Ciprofloxacin 500 mg PO once ordered. ef1 15:28 metroNIDAZOLE 500 mg PO once ordered. ef1 15:48 Financial registration complete. ks16 15:49 [facility] Payment Agreement was scanned into [employer] and attached to record. ks16 08/09 05:51 T-Sheet-- Draft Copy was scanned into [employer] and attached to record. hs2 12:50 Radiology Report was scanned into [employer] and attached to record. gb Administered Medications: 01/01 14:20 Drug: NS 0.9% 1000 ml [sodium chloride 0.9 % intravenous solution] Route: IV; Rate: hs1 bolus; Site: left antecubital; 15:38 Follow up: IV Status: Completed infusion; IV Intake: 1000ml hs1 14:20 Drug: Ondansetron 4 mg [ondansetron HCl 2 mg/mL intravenous solution (2 mL)] Route: hs1 IVP; Site: left antecubital; 14:20 Drug: ketorolac 30 mg [ketorolac 30 mg/mL (1 mL) injection solution (1 mL)] Route: IVP; hs1 Site: left antecubital; 15:38 Drug: Ciprofloxacin 500 mg [ciprofloxacin 500 mg tablet (1 tabs)] Route: PO; hs1 15:38 Drug: metroNIDAZOLE 500 mg [metronidazole 250 mg tablet (2 tabs)] Route: PO; hs1 Signatures: Dispatcher [employer] EDSD Nina Harrison, Reg Reg gb Chad Ward RN RN mlb1 Anamaria Chavarria PA-C PA-C ef1 Alba Nickerson RN RN hs1 Carie Gar RN RN jc4 Romina Mendez, Reg Reg ks16 Jenny Pritchett, Reg Reg hs2 The chart was reviewed and I authenticate all verbal orders and agree with the evaluation and treatment provided.Attachments: 15:49 [facility] Payment Agreement [email or web address] 08/09 05:51 T-Sheet-- Draft Copy hs2 Chart Complete MTDD
--- NOTE | 2016-08-10 16:40 | EDDOCDS ---
Physician Documentation [facility] Name: Johanna Rodriguez Age: 26 yrs Sex: Female : 1990 Arrival Date: 08/08/2016 Time: 12:38 Bed I3 / M3 Private MD: Roxann Phan MD Disposition: 08/08/16 15:28 Discharged to Home/Self Care. Impression: Diverticulitis of large intestine without perforation or abscess without bleeding - mid sigmoid colon versus Acute epiploic appendagitis. - Condition is Stable. - Discharge Instructions: Diverticulitis, [id number]. - Prescriptions for Cipro 500 mg Oral Tablet - take 1 tablet by ORAL route every 12 hours for 10 days; 20 tablet. Flagyl 500 mg Oral Tablet - take 1 tablet by ORAL route every 12 hours for 10 days; 20 tablet. Naprosyn 500 mg Oral Tablet - take 1 tablet by ORAL route 2 times per day take with food; 30 tablet. ZOFRAN ODT 4 mg - dissolve 1 tablet by ORAL route 4 times per day As needed do not chew, do not swallow whole; 10 tablet. Percocet 5- 325 mg Oral Tablet - take 1 tablet by ORAL route every 6 hours As needed MDD: 4 tabs; 10 tablet. - Medication Reconciliation, Local Pharmacy Hours form. - Follow up: Roxann Phan; When: 1 - 2 days; Reason: Recheck today's complaints, Continuance of care. Follow up: Emergency Department; Reason: Worsening of conditions. Follow up: Nj Watkins; When: 1 - 2 days; Reason: Further diagnostic work-up, Recheck today's complaints, Continuance of care. - Problem is new. - Symptoms have improved. Historical: - Allergies: PENICILLINS (Vomit); - Home Meds: 1. amoxicillin 500 mg Oral cap 1 cap every 12 hours 2. Depo-Provera Q- 3 months IM - PMHx: GERD; Hiatal Hernia; Migraine Headaches; - PSHx: Walt Fundoplication; - Social history: Smoking status: Patient states was never smoker of tobacco. No barriers to communication noted, The patient speaks fluent Divehi, Speaks appropriately for age. - Family history: No immediate family members are acutely ill. - : The pt / caregiver states he / she is not on anticoagulants. Home medication list is obtained from the patient. - Exposure Risk Screening:: None identified. 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 2 in. (157.48 cm); Pain 9/10; 15:33 BP 112 / 57; Pulse 54; Resp 20; Temp 97.5(O); Pulse Ox 98% on R/A; Pain 9/10; jml1 12:39 Body Mass Index 23.78 (58.97 kg, 157.48 cm) elp MDM: 12:56 UA Ordered. EDMS 12:56 UCG- In Lab Ordered. EDMS 12:56 Urine Culture Ordered. EDMS 13:52 UA Reviewed. ef1 13:52 UCG- In Lab Reviewed. ef1 14:00 NS 0.9% 1000 ml IV at bolus once ordered. ef1 14:00 Ondansetron 4 mg IVP once ordered. ef1 14:00 ketorolac 30 mg IVP once ordered. ef1 14:00 IV Saline Lock ordered. ef1 14:00 Undress patient appropriately for examination ordered. ef1 14:01 Amylase Ordered. EDMS 14:01 Basic Metabolic Profile Ordered. EDMS 14:01 CBC with Diff Ordered. EDMS 14:01 Lipase Ordered. EDMS 14:01 Liver Profile Ordered. EDMS 14:01 CT ABD & PELVIS: No Contrast Ordered. EDMS 14:01 NOTHING BY MOUTH+DIET ordered. EDMS 15:00 Basic Metabolic Profile Reviewed. ef1 15:00 CBC with Diff Reviewed. ef1 15:00 Liver Profile Reviewed. ef1 15:00 Amylase Reviewed. ef1 15:00 Lipase Reviewed. ef1 15:17 CT ABD & PELVIS: No Contrast Reviewed. ef1 15:28 Ciprofloxacin 500 mg PO once ordered. ef1 15:28 metroNIDAZOLE 500 mg PO once ordered. ef1 15:48 Financial registration complete. [email or web address] 15:49 [facility] Payment Agreement was scanned into [employer] and attached to record. [email or web address] 08/09 05:51 T-Sheet-- Draft Copy was scanned into [employer] and attached to record. hs2 12:50 Radiology Report was scanned into [employer] and attached to record. gb Administered Medications: 01/01 14:20 Drug: NS 0.9% 1000 ml [sodium chloride 0.9 % intravenous solution] Route: IV; Rate: hs1 bolus; Site: left antecubital; 15:38 Follow up: IV Status: Completed infusion; IV Intake: 1000ml hs1 14:20 Drug: Ondansetron 4 mg [ondansetron HCl 2 mg/mL intravenous solution (2 mL)] Route: hs1 IVP; Site: left antecubital; 14:20 Drug: ketorolac 30 mg [ketorolac 30 mg/mL (1 mL) injection solution (1 mL)] Route: IVP; hs1 Site: left antecubital; 15:38 Drug: Ciprofloxacin 500 mg [ciprofloxacin 500 mg tablet (1 tabs)] Route: PO; hs1 15:38 Drug: metroNIDAZOLE 500 mg [metronidazole 250 mg tablet (2 tabs)] Route: PO; hs1 Signatures: Dispatcher [employer] EDMI Nina Harrison, Reg Reg gb Chad Ward RN RN mlb1 Anamaria Chavarria PA-C PA-C ef1 Alba Nickerson RN RN hs1 Carie Gar RN RN [id number] Romina Mendez, Reg Reg [email or web address] Jenny Pritchett, Reg Reg hs2 The chart was reviewed and I authenticate all verbal orders and agree with the evaluation and treatment provided.Attachments: 15:49 [facility] Payment Agreement [email or web address] 08/09 05:51 T-Sheet-- Draft Copy hs2 Chart Complete MTDD
== END 2016-08-08 15:39 | disposition home or self-care (01) ==
LOC: M ED 12:38
DX: R10.84 Generalized abdominal pain (principal); K21.9 Gastro-esophageal reflux disease without esophagitis; K44.9 Diaphragmatic hernia without obstruction or gangrene; Z79.3 Long term (current) use of hormonal contraceptives; Z88.0 Allergy status to penicillin
CPT/HCPCS: 36415; 74176; 80048; 80076; 81001; 82150; 83690; 84703; 85025; 87086; 96361; 96374; 96375; 99284; J1885; J2405

== ENCOUNTER → 2017-06-17 | Outpatient (REF) | payer OTHER ==
[2017-06-17 11:49] LABS: BASO % 0.3 % (0.0-1.0); EOS # 0.1 10^3/uL (0.0-0.50); EOS % 1.3 % (0.0-3.0); IMMATURE GRANULOCYTE % 0.3 % (0-0); LYMPH # 2.7 10^3/uL (1.5-6.5); LYMPH % 37.8 % (24.0-44.0); MEAN CORPUSCULAR HEMOGLOBIN 29.7 pg (27.0-33.0); MEAN CORPUSCULAR HGB CONC 33.7 g/dl (32.0-36.5); MEAN CORPUSCULAR VOLUME 88.2 fl (80.0-96.0); MONO # 0.7 10^3/uL (0.0-0.8); MONO % 10.3 % (0.0-5.0); NEUTROPHILS # 3.6 10^3/uL (1.8-7.7); PLATELET COUNT, AUTOMATED 153 10^3/uL (150-450); RED CELL DISTRIBUTION WIDTH 12.2 % (11.5-14.5); WHITE BLOOD COUNT 7.1 10^3/uL (4.0-10.0)
[2017-06-17 12:20] LABS: FREE T4 1.07 NG/DL (0.76-1.46)
== END ==
LOC: M SFHCPLAZ 10:26
PROVIDERS: ATTEND Family Medicine
DX: R53.82 Chronic fatigue, unspecified (principal)

== ENCOUNTER → 2017-06-22 | Outpatient (CLI) | payer OTHER | LOC: M LAB 12:02 | PROVIDERS: ATTEND Physician Assistant | DX: Z13.29 Encounter for screening for other suspected endocrine disorder (principal) ==

== ENCOUNTER 2017-08-29 14:10 | Emergency (ER) | payer OTHER ==
[2017-08-29 17:37] LABS: CONTROL LINE HCG INT CTR LINE PRESENT; HCG, SERUM QUALITATIVE NEGATIVE (NEGATIVE)
[2017-08-29] MEDS ORDERED: ISOVUE-370 76% 100ML VIAL (Q9967) As Ordered (17:38)
== END 2017-08-29 18:49 | disposition home or self-care (01) ==
LOC: M ED 14:10
DX: R07.89 Other chest pain (principal); R00.2 Palpitations
CPT/HCPCS: Q9967

== ENCOUNTER → 2017-09-02 | Outpatient (CLI) | payer OTHER ==
[2017-09-02 10:26] LABS: URIC ACID 3.9 MG/DL (2.6-6.0)
[2017-09-02 10:26] LABS: TROPONIN I < 0.02 NG/ML (< 0.10)
== END ==
LOC: M LAB 08:49
DX: I30.0 Acute nonspecific idiopathic pericarditis (principal)
CPT/HCPCS: 84550

== ENCOUNTER → 2017-10-18 | Outpatient (REF) | payer OTHER | LOC: M SFHCPLAZ 13:53 | DX: Z01.419 Encounter for gynecological examination (general) (routine) without abnormal findings (principal) ==

== ENCOUNTER 2017-11-05 17:33 | Emergency (ER) | payer OTHER ==
[2017-11-05] MEDS: NS 1,000 ML IV ×2 (19:11→20:15)
[2017-11-05] MEDS: KETOROLAC 30 MG/ML VIAL (J1885) IV (19:12)
[2017-11-05] MEDS: METOCLOPRAMIDE INJ 10MG/2ML VIAL (J2765) IV (19:12)
[2017-11-05] MEDS: diphenhydrAMINE INJ 50MG/ML VIAL (J1200) IV (19:12)
== END 2017-11-05 21:34 | disposition home or self-care (01) ==
LOC: M ED 17:33
DX: G43.909 Migraine, unspecified, not intractable, without status migrainosus (principal); I95.9 Hypotension, unspecified; K21.9 Gastro-esophageal reflux disease without esophagitis; Z88.1 Allergy status to other antibiotic agents; Z91.018 Allergy to other foods; Z79.899 Other long term (current) drug therapy
CPT/HCPCS: J1200

== ENCOUNTER 2017-11-22 21:20 | Emergency (ER) | payer OTHER ==
[2017-11-23] MEDS ORDERED: IBUPROFEN 600 MG TAB PO
== END 2017-11-23 00:01 | disposition home or self-care (01) ==
LOC: M ED 11-23 00:01
DX: S80.211A Abrasion, right knee, initial encounter (principal); S80.01XA Contusion of right knee, initial encounter; W19.XXXA Unspecified fall, initial encounter; Y92.099 Unspecified place in other non-institutional residence as the place of occurrence of the external cause; Y93.9 Activity, unspecified; Y99.9 Unspecified external cause status; K21.9 Gastro-esophageal reflux disease without esophagitis; Z79.899 Other long term (current) drug therapy; Z88.0 Allergy status to penicillin; Z88.8 Allergy status to other drugs, medicaments and biological substances; Z91.018 Allergy to other foods
CPT/HCPCS: 73564

== ENCOUNTER → 2017-12-07 | Outpatient (REF) | payer OTHER ==
[2017-12-07 12:13] LABS: CHOLESTEROL LEVEL 107 MG/DL (<200); CHOLESTEROL RISK RATIO 2.609 (<5); HDL CHOLESTEROL 41 MG/DL (>40); LDL CHOLESTEROL 56.4 MG/DL (<100); NON-HDL-C 66 MG/DL; TRIGLYCERIDES LEVEL 48 MG/DL (<150)
[2017-12-07 12:22] LABS: ESTIMATED AVERAGE GLUCOSE 91 MG/DL (60-110); HEMOGLOBIN A1c 4.8 %
[2017-12-07 14:27] LABS: CHLAMYDIA DNA AMPLIFICATION NEGATIVE (NEGATIVE); GC DNA AMPLIFICATION NEGATIVE (NEGATIVE)
== END ==
LOC: M SFHCPLAZ 08:23
DX: Z01.419 Encounter for gynecological examination (general) (routine) without abnormal findings (principal); Z11.3 Encounter for screening for infections with a predominantly sexual mode of transmission

== ENCOUNTER 2018-01-25 21:25 | Emergency (ER) | payer OTHER ==
[2018-01-25] MEDS: ONDANSETRON 4MG/2ML VIAL (J2405) IV (22:25)
[2018-01-25] MEDS: KETOROLAC 30 MG/ML VIAL (J1885) IV (22:25)
[2018-01-25] MEDS: NS 1,000 ML IV (22:25)
[2018-01-25 22:28] LABS: BASO % 0.6 % (0.0-1.0); EOS # 0.2 10^3/uL (0.0-0.50); EOS % 3.1 % (0.0-3.0); HEMATOCRIT 34.6 % (36.0-47.0); IMMATURE GRANULOCYTE % 0.1 % (0-3.0); LYMPH # 3.1 10^3/uL (1.5-6.5); LYMPH % 45.7 % (24.0-44.0); MEAN CORPUSCULAR HEMOGLOBIN 29.7 pg (27.0-33.0); MEAN CORPUSCULAR HGB CONC 34.7 g/dl (32.0-36.5); MEAN CORPUSCULAR VOLUME 85.6 fl (80.0-96.0); MONO # 0.7 10^3/uL (0.0-0.8); MONO % 10.1 % (0.0-5.0); NEUTROPHILS # 2.7 10^3/uL (1.8-7.7); NEUTROPHILS % 40.4 % (36.0-66.0); PLATELET COUNT, AUTOMATED 158 10^3/uL (150-450); RED BLOOD COUNT 4.04 10^6/uL (4.00-5.40); RED CELL DISTRIBUTION WIDTH 11.9 % (11.5-14.5); WHITE BLOOD COUNT 6.7 10^3/uL (4.0-10.0)
[2018-01-25 22:37] LABS: KETONE, URINE AUTO RFX NEGATIVE (NEGATIVE); LEUKOCYTE ESTERASE UR AUTO RFX NEGATIVE (NEGATIVE); NITRITE, URINE AUTO RFX NEGATIVE (NEGATIVE); RBC, URINE AUTO RFX 1 /HPF (0-3); SPECIFIC GRAVITY UR AUTO RFX 1.009 (1.002-1.035); SQUAM EPITHELIAL CELL UR AURFX 1 /HPF (0-6); WBC, URINE AUTO RFX 1 /HPF (0-3)
[2018-01-25 22:44] LABS: CONTROL LINE HCG INT CTR LINE PRESENT; HCG, SERUM QUALITATIVE NEGATIVE (NEGATIVE)
[2018-01-25 22:52] LABS: ALBUMIN 4.1 GM/DL (3.2-5.2); ALBUMIN/GLOBULIN RATIO 1.21 (1.00-1.93); ALKALINE PHOSPHATASE 101 U/L (45-117); ALT/SGPT 18 U/L (12-78); AMYLASE 49 U/L (25-115); ANION GAP 9 MEQ/L (8-16); AST/SGOT 7 U/L (7-37); BILIRUBIN,DIRECT < 0.1 MG/DL (0.0-0.2); BILIRUBIN,TOTAL 0.2 MG/DL (0.2-1.0); BLOOD UREA NITROGEN 11 MG/DL (7-18); CALCIUM LEVEL 8.7 MG/DL (8.5-10.1); CARBON DIOXIDE LEVEL 27 MEQ/L (21-32); CHLORIDE LEVEL 106 MEQ/L (98-107); CREATININE FOR GFR 0.66 MG/DL (0.55-1.30); GLOMERULAR FILTRATION RATE > 60.0 (>60); GLUCOSE, FASTING 94 MG/DL (70-100); LIPASE 180 U/L (73-393); SODIUM LEVEL 142 MEQ/L (136-145); TOTAL PROTEIN 7.5 GM/DL (6.4-8.2)
[2018-01-25] MEDS ORDERED: ISOVUE-370 76% 100ML VIAL (Q9967) As Ordered (23:16)
== END 2018-01-26 01:33 | disposition home or self-care (01) ==
LOC: M ED 01-26 01:33
DX: A08.4 Viral intestinal infection, unspecified (principal); K80.20 Calculus of gallbladder without cholecystitis without obstruction; K21.9 Gastro-esophageal reflux disease without esophagitis; Z88.1 Allergy status to other antibiotic agents; Z91.018 Allergy to other foods; Z79.899 Other long term (current) drug therapy
CPT/HCPCS: J2405

== ENCOUNTER → 2018-02-01 | Outpatient (CLI) | payer OTHER ==
[2018-02-01 12:03] LABS: C REACTIVE PROTEIN QUANTITATIV 0.33 MG/DL (0.00-0.30)
[2018-02-01 12:07] LABS: ERYTHROCYTE SEDIMENTATION RATE 5 mm/hr (0-20)
== END ==
LOC: M LAB 10:52
DX: K92.1 Melena (principal)
CPT/HCPCS: 86140

== ENCOUNTER → 2018-02-02 | Outpatient (REF) | payer OTHER | LOC: M LAB REF 10:13 | DX: R19.7 Diarrhea, unspecified (principal) | CPT/HCPCS: 87507 ==

== ENCOUNTER → 2018-02-02 | Outpatient (REF) | payer OTHER ==
[2018-02-04 00:08] LABS: H PYLORI STOOL ANTIGEN Negative (Negative)
== END ==
LOC: M SFHCPLAZ 10:09
DX: K92.1 Melena (principal)
CPT/HCPCS: 87338

== ENCOUNTER 2018-03-16 11:56 | Day surgery (SDC) | payer OTHER ==
[2018-03-16] MEDS ORDERED: LIDOCAINE 2% INJ 100 MG/5 ML SDV (FOR ANES.) As Ordered (12:12)
[2018-03-16] MEDS ORDERED: PROPOFOL 200 MG/20 ML VIAL As Ordered (12:12)
[2018-03-16] MEDS: NS 1,000 ML IV (13:00)
[2018-03-16] MEDS ORDERED: DICYCLOMINE 10 MG CAP PO (15:00)
== END 2018-03-16 16:10 | disposition home or self-care (01) ==
LOC: M SDC 11:56
DX: K92.1 Melena (principal); R93.3 Abnormal findings on diagnostic imaging of other parts of digestive tract; K64.8 Other hemorrhoids; R10.2 Pelvic and perineal pain; R11.10 Vomiting, unspecified; K21.9 Gastro-esophageal reflux disease without esophagitis; K80.20 Calculus of gallbladder without cholecystitis without obstruction; G43.909 Migraine, unspecified, not intractable, without status migrainosus; F90.9 Attention-deficit hyperactivity disorder, unspecified type; F41.9 Anxiety disorder, unspecified; Z88.1 Allergy status to other antibiotic agents; Z91.018 Allergy to other foods; Z79.899 Other long term (current) drug therapy; Z98.890 Other specified postprocedural states; Z86.69 Personal history of other diseases of the nervous system and sense organs; Z97.5 Presence of (intrauterine) contraceptive device
CPT/HCPCS: 45378

== ENCOUNTER 2018-04-28 07:59 | Day surgery (SDC) | payer OTHER ==
[2018-04-28 08:29] LABS: CONTROL LINE UCG INT CTR LINE PRESENT; URINE PREG TEST NEGATIVE (NEGATIVE)
[2018-04-28] MEDS: LR 1,000 ML IV (08:55)
[2018-04-28] MEDS ORDERED: fentaNYL 250 MCG/5 ML INJECTION (J3010) As Ordered (10:15)
[2018-04-28] MEDS ORDERED: MIDAZOLAM INJ 2 MG/2 ML VIAL (J2250) As Ordered (10:16)
[2018-04-28] MEDS ORDERED: dexameTHASONE 4 MG/ML 1ML VIAL (J1100) As Ordered (10:17)
[2018-04-28] MEDS ORDERED: ROCURONIUM BROMIDE 50 MG/5 ML VIAL As Ordered (10:17)
[2018-04-28] MEDS ORDERED: LIDOCAINE 2% INJ 100 MG/5 ML SDV (FOR ANES.) As Ordered (10:17)
[2018-04-28] MEDS ORDERED: ONDANSETRON 4MG/2ML VIAL (J2405) As Ordered (10:17)
[2018-04-28] MEDS ORDERED: PROPOFOL 200 MG/20 ML VIAL As Ordered (10:17)
[2018-04-28] MEDS ORDERED: KETOROLAC 60 MG/2 ML VIAL (J1885) As Ordered (10:17)
[2018-04-28] MEDS ORDERED: BUPIVACAINE/EPIN 0.25% 30 ML VIAL As Ordered (10:20)
[2018-04-28] MEDS ORDERED: GLYCOPYRROLATE INJ 0.2 MG/ML 2 ML VIAL As Ordered ×2 (10:51)
[2018-04-28] MEDS ORDERED: NEOSTIGMINE 10 MG/10 ML VIAL (J2710) As Ordered (10:51)
[2018-04-28] MEDS ORDERED: PERCOCET 5MG/325MG TAB As Ordered (12:00)
[2018-04-28] MEDS: PERCOCET 5MG/325MG TAB PO ×2 (12:02→12:45)
[2018-04-28] MEDS ORDERED: ONDANSETRON 4MG/2ML VIAL (J2405) IV (12:15)
[2018-04-28] MEDS ORDERED: fentaNYL 100 MCG/2 ML INJECTION (J3010) IV (12:15)
[2018-04-28] MEDS ORDERED: LR 1,000 ML IV (12:15)
[2018-04-28] MEDS ORDERED: METOCLOPRAMIDE INJ 10MG/2ML VIAL (J2765) IV (12:15)
== END 2018-04-28 14:20 | disposition home or self-care (01) ==
LOC: M SDC 07:59
DX: K80.18 Calculus of gallbladder with other cholecystitis without obstruction (principal); K44.9 Diaphragmatic hernia without obstruction or gangrene; K21.9 Gastro-esophageal reflux disease without esophagitis; R56.9 Unspecified convulsions; Z88.0 Allergy status to penicillin; Z79.899 Other long term (current) drug therapy
CPT/HCPCS: 47562

== ENCOUNTER → 2018-06-01 | Outpatient (REF) | payer OTHER ==
[2018-06-01 14:31] LABS: CHLAMYDIA DNA AMPLIFICATION NEGATIVE (NEGATIVE); GC DNA AMPLIFICATION NEGATIVE (NEGATIVE)
[2018-06-02 11:06] LABS: HIV 1&2 SCREEN CENTAUR NEGATIVE (NEGATIVE)
[2018-06-02 11:06] LABS: HEPATITIS C VIRUS ABY INDEX < 0.0 INDEX (<0.8)
[2018-06-02 12:51] LABS: HSV TYPE I IgG SPECIFIC 5.43 index (0.00-0.90)
== END ==
LOC: M SFHCPLAZ 09:56
DX: Z20.2 Contact with and (suspected) exposure to infections with a predominantly sexual mode of transmission (principal)
CPT/HCPCS: 86803

== ENCOUNTER 2018-07-15 21:21 | Emergency (ER) | payer OTHER ==
[2018-07-15] MEDS: CLINDAMYCIN 150 MG CAP PO (21:44)
[2018-07-15] MEDS: NORCO 5/325MG TABLET (BULK FOR ED) PO (21:44)
== END 2018-07-15 21:59 | disposition home or self-care (01) ==
LOC: M ED 21:21
DX: K08.89 Other specified disorders of teeth and supporting structures (principal); R51 Headache; R56.9 Unspecified convulsions; Z98.890 Other specified postprocedural states; K21.9 Gastro-esophageal reflux disease without esophagitis; F41.9 Anxiety disorder, unspecified; F90.9 Attention-deficit hyperactivity disorder, unspecified type; Z79.899 Other long term (current) drug therapy; Z88.0 Allergy status to penicillin; Z88.1 Allergy status to other antibiotic agents; Z91.018 Allergy to other foods; Z88.8 Allergy status to other drugs, medicaments and biological substances
CPT/HCPCS: 99282

== ENCOUNTER 2018-08-25 22:12 | Inpatient (IN) | payer OTHER ==
[~2018-08-25] VITALS: Ht 157.5 cm; Wt 62.7 kg
[~2018-08-25 22:12] MED LIST changes: +BUSP10TA PO; +CLEO300C2 PO; +DEPA500T2 PO; +IBUP-1022 PO; +MEDR1VL IM; +MIRE1IUD IU; +NARA2.5T PO; +OMEP40CA2 PO; +VITA100067 PO; +ZOFR4TAB14 PO
[2018-08-25] MEDS ORDERED: MORPHINE 2 MG/ML 1ML SYRINGE (J2270) IV PRN (23:00)
[2018-08-25] MEDS ORDERED: NS 1,000 ML IV ONE (23:00)
[2018-08-25] MEDS ORDERED: ONDANSETRON 4MG/2ML VIAL (J2405) IV ONE (23:00)
[2018-08-25 23:09] LABS: BASO % 0.3 % (0.0-1.0); EOS # 0.1 10^3/uL (0.0-0.50); EOS % 1.1 % (0.0-3.0); HEMATOCRIT 37.1 % (36.0-47.0); HEMOGLOBIN 12.7 g/dl (12.0-15.5); LYMPH # 2.7 10^3/uL (1.5-6.5); LYMPH % 28.5 % (24.0-44.0); MEAN CORPUSCULAR HEMOGLOBIN 30.3 pg (27.0-33.0); MEAN CORPUSCULAR HGB CONC 34.2 g/dl (32.0-36.5); MEAN CORPUSCULAR VOLUME 88.5 fl (80.0-96.0); MONO # 0.6 10^3/uL (0.0-0.8); MONO % 6.5 % (0.0-5.0); NEUTROPHILS % 63.2 % (36.0-66.0); PLATELET COUNT, AUTOMATED 170 10^3/uL (150-450); RED BLOOD COUNT 4.19 10^6/uL (4.00-5.40); WHITE BLOOD COUNT 9.4 10^3/uL (4.0-10.0)
[2018-08-25] MEDS ORDERED: ISOVUE-370 76% 100ML VIAL (Q9967) As Ordered ONE (23:20)
[2018-08-25 23:22] LABS: ALBUMIN 4.5 GM/DL (3.2-5.2); ALT/SGPT 14 U/L (12-78); BILIRUBIN,DIRECT 0.1 MG/DL (0.0-0.2); BILIRUBIN,TOTAL 0.5 MG/DL (0.2-1.0); BLOOD UREA NITROGEN 12 MG/DL (7-18); CALCIUM LEVEL 8.9 MG/DL (8.5-10.1); CARBON DIOXIDE LEVEL 24 MEQ/L (21-32); CHLORIDE LEVEL 106 MEQ/L (98-107); CREATININE FOR GFR 0.71 MG/DL (0.55-1.30); GLOMERULAR FILTRATION RATE > 60.0 (>60); GLUCOSE, FASTING 86 MG/DL (70-100); LIPASE 83 U/L (73-393); POTASSIUM SERUM 3.5 MEQ/L (3.5-5.1); SODIUM LEVEL 139 MEQ/L (136-145); TOTAL PROTEIN 7.3 GM/DL (6.4-8.2)
[2018-08-25 23:25] LABS: HCG, SERUM QUALITATIVE NEGATIVE (NEGATIVE)
--- NOTE | 2018-08-26 00:40 | REPVR ---
EXAM: CT Abdomen and Pelvis With Contrast EXAM DATE/TIME: 08/25/2018 10:55 PM CLINICAL HISTORY: 28 years old, female; Pain; Abdominal pain; Generalized TECHNIQUE: Axial computed tomography images of the abdomen and pelvis with intravenous contrast. All CT scans at this facility use at least one of these dose optimization techniques: automated exposure control; mA and/or kV adjustment per patient size (includes targeted exams where dose is matched to clinical indication); or iterative reconstruction. Coronal and sagittal reformatted images were created and reviewed. CONTRAST: 100 ml of iso administered intravenously. COMPARISON: CT ABD/PEL W/IV CONTRAST ONLY 01/25/2018 11:15 PM FINDINGS: Lower thorax: Clear lung bases. The heart is normal in size. There is no pericardial effusion. ABDOMEN: Liver: Normal liver. Gallbladder and bile ducts: Normal common bile duct. Surgical clips at the gallbladder fossa and the patient's postcholecystectomy. Pancreas: The normal sized pancreas. Spleen: Normal spleen. Adrenals: Normal adrenal glands. Kidneys and ureters: Normal kidneys. There is no evidence of a stone in the right or left ureter. Stomach and bowel: The cecum is in the right pelvis. The appendix appears normal in size and extends along the right iliac artery and vein into the posterior pelvis. There is marked distention of the first portion of the duodenal C-loop with the lumen measuring 3.5 CM with an air-fluid level. There are 3 loops of jejunum left upper quadrant with severe distention of the lumen also approximately 3 CM. There is a transition point from dilated small bowel to decompressed small bowel in the left upper quadrant. The remainder of the small bowel is normal in size but with fluid and a few air fluid levels. Because of the marked distention of the first portion of the duodenum and marked distention of loops of jejunum left upper quadrant there would be concern of small bowel obstruction. This may be due to adhesions. This could represent a closed-loop obstruction. Skip lesions of Crohn's in the differential. Further evaluation with oral contrast and delayed CT might be helpful. PELVIS: Bladder: Normal urinary bladder. Reproductive: There are follicular cysts of the right and the left ovary. There is an IUD within the central portion of the uterus. ABDOMEN and PELVIS: Intraperitoneal space: No free air. No significant fluid collection. Bones/joints: There is no evidence of bony abnormality. However, there is some lateral rotation of the sternum. Soft tissues: Unremarkable. Vasculature: Normal. No abdominal aortic aneurysm. Lymph nodes: Normal. No enlarged lymph nodes. Other findings: There is no evidence of pneumo-peritoneum. IMPRESSION: Severe distention of the first portion of the duodenal C-loop. Severe distention of 3 loops of jejunum left upper quadrant. This could be a small bowel obstruction related to adhesions. Closed-loop obstruction also a possibility. Utilizing oral contrast and waiting 2 hours and repeating the CT scan might give additional information. Electronically signed by: Иван Arredondo On 08/26/2018 00:40:09 AM
[2018-08-26] MEDS: LR 1,000 ML IV SCH ×4 (02:51→21:28)
[2018-08-26 03:42] VITALS: BP 115/58
[2018-08-26] MEDS: ONDANSETRON 4MG/2ML VIAL (J2405) IV PRN ×3 (04:10→21:24)
[2018-08-26] MEDS: MORPHINE 4 MG/ML 1ML VIAL/SYRINGE (J2270) IV PRN ×2 (04:11→07:44)
[2018-08-26 08:00] VITALS: BP 109/59
[2018-08-26] MEDS: OMEPRAZOLE 20 MG CAP PO SCH (10:27)
[2018-08-26] MEDS: SENOKOT S TAB PO SCH ×2 (10:27→21:25)
[2018-08-26] MEDS: VITAMIN D 1,000 INTERNATIONAL UNITS TABLET PO SCH (10:27)
[2018-08-26] MEDS: busPIRone 10 MG TAB PO SCH ×2 (11:45→21:24)
[2018-08-26] MEDS: NORCO, ANEXSIA 5/325MG TABLET (HYDROcodone/ACETAMINOPHEN) PO PRN ×2 (14:59→21:26)
[2018-08-26 16:00] VITALS: BP 124/67
[2018-08-26 20:00] VITALS: BP 112/55
[2018-08-26] MEDS: DIVALPROEX 500MG *ER* TAB PO SCH (21:25)
[2018-08-27 01:00] VITALS: BP 100/56
[2018-08-27] MEDS: KETOROLAC 30 MG/ML VIAL (J1885) IV PRN ×3 (01:08→20:13)
[2018-08-27] MEDS: NORCO, ANEXSIA 5/325MG TABLET (HYDROcodone/ACETAMINOPHEN) PO PRN ×2 (04:20→18:30)
[2018-08-27] MEDS: LR 1,000 ML IV SCH (05:33)
--- NOTE | 2018-08-27 07:16 | HPE ---
DATE OF ADMISSION: 08/26/2018 CHIEF COMPLAINT: Abdominal pain, nausea and vomiting. HISTORY OF PRESENT ILLNESS: The patient is a 28-year-old female known to me from a recent cholecystectomy in March. She now is presenting with a 1-day history of nausea, vomiting and followed by sharp upper abdominal pains. She woke up yesterday morning, the , with just a slight upset stomach. She went to work. Throughout the day, she started to have some increased nausea, followed by some violent emesis. Soon after the emesis started, she developed sharp upper abdominal pains. She had multiple episodes of emesis, too much for her to count. The pain got worse so she came into the emergency room. In the emergency room, she was given some Zofran which controlled the majority of her problems. Labs were all normal. Vitals were normal. CT scan showed some dilated loops of small bowel in the upper abdomen, no other significant abnormalities. She denies any fevers or chills. No current nausea or vomiting. No problems or changes in bowel movements. No changes in diet. No recent trauma to the abdomen. No recent illnesses. Never had any pains like this in the past. She does have a history of a Walt previously, but she has never had any emesis since then up until now. No other complaints. PAST MEDICAL HISTORY: 1. Gastroesophageal reflux disease. 2. Attention deficit hyperactivity disorder (ADHD). 3. Anxiety. PAST SURGICAL HISTORY: 1. Ear tubes. 2. Endoscopies. 3. Walt fundoplication. 4. Laparoscopic cholecystectomy. ALLERGIES: - ZITHROMAX - AMOXICILLIN - CEPHALOSPORINS HOME MEDICATIONS: Please see med record. SOCIAL HISTORY: Denies drug, alcohol or tobacco abuse. FAMILY HISTORY: Noncontributory. REVIEW OF SYSTEMS: Pertinent positives and negatives as stated in history of present illness (HPI). PHYSICAL EXAMINATION: General: Alert and oriented times three, in no acute distress. Vitals: Temperature 98., pulse 56, respirations 18, blood pressure 109/59, pulse oximetry 97% on room air. HEENT: Pupils equally round and react to light and accommodation. Heart: S1 and S2, regular rate and rhythm. Lungs: Clear to auscultation bilaterally. Abdomen: Soft. Tender to palpation epigastric, very mild. No rebounding, guarding or rigidity. Extremities: No clubbing, cyanosis or edema. LABORATORY DATA: White count 9.4, hemoglobin 12.7 platelets 170. Sodium 139, potassium 3.5, creatinine 0.71, lactic acid 1.1. IMAGING: CT abdomen and pelvis was read as severe distention first portion of duodenal C-loop, severe distention of three loops of jejunum of the left upper quadrant that could be related to small bowel obstruction related to adhesions. However, closed loop obstruction was also a possibility. However, I have reviewed the images personally. I feel that is slight over read. There are some slightly dilated loops of small bowel in the upper abdomen, but I do not see any signs of any air fluid levels and the stomach is decompressed. There are no signs of any closed loop obstruction on imaging. ASSESSMENT/PLAN: The patient is a 28-year-old female with nausea and vomiting, followed by abdominal pains. This is likely secondary to a viral gastroenteritis. Her symptoms are somewhat improved this morning and I feel that the abdominal pains likely started after the emesis, possibly due to her history of a Walt. RECOMMENDATIONS: At this time, is to continue with the IV fluids for fluid hydration. Will start her on a diet as tolerated. No indication for any antibiotics. I recommend ambulation. Will monitor her today. Continued to slowly advance her diet. As long as she is improving and her pain, nausea and vomiting are improved by tomorrow, then will plan for discharge home tomorrow morning.
[2018-08-27 07:19] LABS: HEMATOCRIT 30.3 % (36.0-47.0); PLATELET COUNT, AUTOMATED 120 10^3/uL (150-450); RED BLOOD COUNT 3.33 10^6/uL (4.00-5.40); WHITE BLOOD COUNT 5.3 10^3/uL (4.0-10.0)
[2018-08-27 07:42] LABS: ALT/SGPT 13 U/L (12-78); BILIRUBIN,TOTAL 0.3 MG/DL (0.2-1.0); BLOOD UREA NITROGEN 6 MG/DL (7-18); CARBON DIOXIDE LEVEL 28 MEQ/L (21-32); CHLORIDE LEVEL 108 MEQ/L (98-107); CREATININE FOR GFR 0.64 MG/DL (0.55-1.30); GLOMERULAR FILTRATION RATE > 60.0 (>60); GLUCOSE, FASTING 80 MG/DL (70-100); SODIUM LEVEL 142 MEQ/L (136-145); TOTAL PROTEIN 5.2 GM/DL (6.4-8.2)
[2018-08-27 08:00] VITALS: BP 131/75
[2018-08-27] MEDS: GASTROGRAFIN SOLUTION 30ML PO SCH ×2 (08:23→08:58)
[2018-08-27] MEDS: ONDANSETRON 4MG/2ML VIAL (J2405) IV PRN ×2 (08:57→19:25)
--- NOTE | 2018-08-27 09:26 | IPNPDOC ---
Text Note Date of Service The patient was seen on 08/27/18. NOTE No acute events overnight. She is still having some nausea, and LUQ/epigastric pains. There is no improvement in the pains overnight, and she had an episode of emesis this am. VSSAF NAD abd - soft, TTP epigastric only, no rebound or guarding, no signs of peritonitis labs - below A) 28y/o female with nonspecific LUQ and epigastric pains P) start abx repeat CT with contrast ambulate clq diet Charli Watkins DO VS,Fishbone, I+O VS, Fishbone, I+O Laboratory Tests 08/27/18 06:36 Red Blood Count 3.33 L, Mean Corpuscular Volume 91.0, Mean Corpuscular Hemoglobin 30.0, Mean Corpuscular Hemoglobin Concent 33.0, Red Cell Distribution Width 12.1, Calcium Level 8.0 L, Aspartate Amino Transf (AST/SGOT) 9, Alanine Aminotransferase (ALT/SGPT) 13, Alkaline Phosphatase 58, Total Bilirubin 0.3, Total Protein 5.2 #L, Albumin 3.0 #L Vital Signs Date Time Temp Pulse Resp B/P (MAP) Pulse Ox O2 Delivery O2 Flow Rate FiO2 08/27/18 08:00 99.6 61 18 131/75 (93) 97 Room Air I&O- Last 24 Hours up to 6 AM 08/27/18 05:59 Intake Total 1695 ml Output Total 2000 ml Balance -305 ml YENNY WATKINS DO Aug 27, 2018 09:26
[2018-08-27] MEDS ORDERED: ISOVUE-370 76% 100ML VIAL (Q9967) As Ordered ONE (09:54)
[2018-08-27] MEDS: OMEPRAZOLE 20 MG CAP PO SCH (10:47)
[2018-08-27] MEDS: busPIRone 10 MG TAB PO SCH ×2 (10:47→20:13)
[2018-08-27] MEDS: VITAMIN D 1,000 INTERNATIONAL UNITS TABLET PO SCH (10:47)
[2018-08-27] MEDS: SUMAtriptan SUCCINATE 25 MG TAB PO PRN (10:47)
[2018-08-27] MEDS: SENOKOT S TAB PO SCH ×2 (10:48→20:13)
--- NOTE | 2018-08-27 11:32 | REP ---
CT ABDOMEN PELVIS WITH IV AND ORAL CONTRAST: 08/27/2018. Comparison: 08/25/2018, 01/25/2018 CT. Technique: Bolus of 100 ml Isovue 370 and oral Gastrografin mixture 10 ml in 290 ml flavored water for two doses per our bowel contrast protocol. Coronal and sagittal reconstructions of the abdomen pelvis. Clinical history: Abdominal pain. Follow-up. Findings: CT abdomen lung bases are clear. Heart not enlarged. There is no pericardial thickening or effusion. There are postoperative changes from a Walt fundoplication. Stomach well filled with oral contrast about the duodenum now has normal caliber and is not distended or fluid-filled. Some oral contrast remains in the stomach but is seen also in the mid to distal small bowel loops and into the right colon. The abnormal dilated small bowel loops in the left upper quadrant are reduced in size to more normal appearance. Fluid filled proximal small bowel loops are not larger than 2.2 cm in diameter, normal tapering to a smaller normal diameter in the mid to distal jejunum and ileum. Colon shows no sign of diverticulitis, colitis, stricture or mass. The liver and spleen are not enlarged and show no focal lesion. There is no biliary dilatation or ascites. Prior cholecystectomy has occurred. Adrenal glands are normal. Pancreas intact. Kidneys show function without obstruction, stone, mass or cyst. No perinephric fluid. Ureters show normal course to the bladder without dilatation or stone. Lung window review of all CT slices shows no perforation or free air in the abdomen or pelvis. The bone windows show lumbar, lower thoracic spine, their posterior elements and the visualized ribs all intact. CT pelvis: The bony pelvis, hips, sacrum, and ischia are unremarkable and unchanged. An IUD is seen in the in the central uterine body and fundus normal. No enlargement of the uterus. Trace pelvic free fluid which may be physiologic. Ovaries symmetric and grossly intact. Small bowel loops contrast filled and not dilated in the distal pelvis. The ileocecal valve and terminal ileum unremarkable. Distal left colon, sigmoid and rectum intact. There is no ventral or inguinal hernia nor pathologic sized inguinal adenopathy. Impression: 1. Clearing of distension of the duodenum and proximal small bowel loops seen on the CT 2 days ago. No retained fluid in the duodenum and normal caliber of these loops. Stomach is normal in appearance with some oral contrast retained but not abnormally distended. No small bowel air fluid levels or dilatation and caliber normal to the terminal ileum. 2. No ascites, adenopathy, free air, mass or abnormalities of the solid organs upper abdomen. 3. No pelvic mass. Trace free fluid may be physiologic. Nothing acute. Electronically Signed by Vish Mason MD 08/27/2018 02:29 P
[2018-08-27] MEDS ORDERED: GI COCKTAIL 50ML BTL(HYOSCYAMINE/MAALOX/LIDOCAINE VISCOUS)(1:3:1) PO ONE (12:00)
[2018-08-27 16:00] VITALS: BP 114/60
[2018-08-27 20:00] VITALS: BP 125/69
[2018-08-27] MEDS: DIVALPROEX 500MG *ER* TAB PO SCH (20:13)
[2018-08-28] VITALS: BP 105/70
[2018-08-28] MEDS: NORCO, ANEXSIA 5/325MG TABLET (HYDROcodone/ACETAMINOPHEN) PO PRN ×3 (06:37→21:17)
[2018-08-28 08:00] VITALS: BP 110/67
[2018-08-28] MEDS: SENOKOT S TAB PO SCH ×2 (08:55→20:01)
[2018-08-28] MEDS: busPIRone 10 MG TAB PO SCH ×2 (08:55→20:01)
[2018-08-28] MEDS: OMEPRAZOLE 20 MG CAP PO SCH (08:55)
[2018-08-28] MEDS: VITAMIN D 1,000 INTERNATIONAL UNITS TABLET PO SCH (08:55)
[2018-08-28] MEDS: ONDANSETRON 4MG/2ML VIAL (J2405) IV PRN ×2 (10:07→14:41)
--- NOTE | 2018-08-28 10:14 | IPNPDOC ---
Text Note Date of Service The patient was seen on 08/28/18. NOTE No acute events overnight. She is still having some nausea, and LUQ/epigastric pains. There is no improvement in the pains with the GI cocktail. She is tolerating liquids and crackers without any problems. VSSAF NAD abd - soft, TTP epigastric only, no rebound or guarding, no signs of peritonitis labs - below CT - improvement in bowel distention, no signs of any inflammation, obstruction, ileus, or perforation. A) 28y/o female with nonspecific LUQ and epigastric pains likely secondary to viral gastroenteritis followed by some kain nina syndrome P) stop abx ambulate reg diet dc home after lunch if tolerating Charli Watkins DO VS,Fishbone, I+O VS, Fishbone, I+O Vital Signs Date Time Temp Pulse Resp B/P (MAP) Pulse Ox O2 Delivery O2 Flow Rate FiO2 08/28/18 08:00 98.3 60 18 110/67 (81) 98 Room Air I&O- Last 24 Hours up to 6 AM 08/28/18 06:00 Intake Total 2120 ml Output Total 3500 ml Balance -1380 ml YENNY WATKINS DO Aug 28, 2018 10:14
[2018-08-28] MEDS: SUMAtriptan SUCCINATE 25 MG TAB PO PRN (12:48)
[2018-08-28 16:00] VITALS: BP 115/63
[2018-08-28] MEDS: KETOROLAC 30 MG/ML VIAL (J1885) IV PRN ×2 (16:37→23:55)
[2018-08-28 20:00] VITALS: BP 109/58
[2018-08-28] MEDS: DIVALPROEX 500MG *ER* TAB PO SCH (20:01)
[2018-08-29 04:00] VITALS: BP 113/61
[2018-08-29] MEDS: NORCO, ANEXSIA 5/325MG TABLET (HYDROcodone/ACETAMINOPHEN) PO PRN ×3 (04:18→23:02)
[2018-08-29 07:50] VITALS: BP 117/55
[2018-08-29] MEDS: ONDANSETRON 4MG/2ML VIAL (J2405) IV PRN ×2 (08:46→16:24)
[2018-08-29] MEDS: busPIRone 10 MG TAB PO SCH ×2 (08:47→20:52)
[2018-08-29] MEDS: OMEPRAZOLE 20 MG CAP PO SCH (08:47)
[2018-08-29] MEDS: VITAMIN D 1,000 INTERNATIONAL UNITS TABLET PO SCH (08:47)
[2018-08-29] MEDS: KETOROLAC 30 MG/ML VIAL (J1885) IV PRN (08:47)
[2018-08-29] MEDS: SENOKOT S TAB PO SCH ×2 (08:47→20:51)
--- NOTE | 2018-08-29 10:42 | IPNPDOC ---
Text Note Date of Service The patient was seen on 08/29/18. NOTE No acute events overnight. She is still having some nausea, and LUQ/epigastric pains. There is no improvement in the pains, but she is tolerating more foods. The headache is also getting worse, and she feels like that may be causing her nausea and emesis. VSSAF NAD abd - soft, TTP epigastric only, no rebound or guarding, no signs of peritonitis CT - improvement in bowel distention, no signs of any inflammation, obstruction, ileus, or perforation. A) 28y/o female with nonspecific LUQ and epigastric pains likely secondary to viral gastroenteritis followed by some kain nina syndrome migraines P) ambulate reg diet will consult medicine for further recommendations regarding headaches and persistent nausea symptoms. Charli Watkins DO VS,Fishtomase, I+O VS, Fishbone, I+O Vital Signs Date Time Temp Pulse Resp B/P (MAP) Pulse Ox O2 Delivery O2 Flow Rate FiO2 08/29/18 07:50 98.8 62 18 117/55 (75) 96 Room Air I&O- Last 24 Hours up to 6 AM 08/29/18 06:00 Intake Total 1080 ml Output Total 700 ml Balance 380 ml YENNY WATKINS DO Aug 29, 2018 10:42
[2018-08-29 11:45] LABS: BASO % 0.5 % (0.0-1.0); EOS # 0.1 10^3/uL (0.0-0.50); EOS % 1.3 % (0.0-3.0); HEMATOCRIT 34.7 % (36.0-47.0); HEMOGLOBIN 11.9 g/dl (12.0-15.5); LYMPH # 1.8 10^3/uL (1.5-6.5); LYMPH % 32.3 % (24.0-44.0); MEAN CORPUSCULAR HEMOGLOBIN 30.6 pg (27.0-33.0); MEAN CORPUSCULAR HGB CONC 34.3 g/dl (32.0-36.5); MEAN CORPUSCULAR VOLUME 89.2 fl (80.0-96.0); MONO # 0.3 10^3/uL (0.0-0.8); NEUTROPHILS # 3.3 10^3/uL (1.8-7.7); NEUTROPHILS % 59.7 % (36.0-66.0); PLATELET COUNT, AUTOMATED 145 10^3/uL (150-450); RED BLOOD COUNT 3.89 10^6/uL (4.00-5.40); WHITE BLOOD COUNT 5.5 10^3/uL (4.0-10.0)
[2018-08-29 11:58] LABS: INR 1.08; PROTHROMBIN TIME 14.1 SECONDS (12.1-14.4)
[2018-08-29 11:59] LABS: PARTIAL THROMBOPLASTIN TIME 29.4 SECONDS (25.4-37.6)
[2018-08-29] MEDS: SUCRALFATE 1 GM TAB PO SCH ×3 (12:13→20:52)
[2018-08-29 12:27] LABS: ALBUMIN 3.6 GM/DL (3.2-5.2); ALT/SGPT 18 U/L (12-78); BILIRUBIN,TOTAL 0.4 MG/DL (0.2-1.0); BLOOD UREA NITROGEN 8 MG/DL (7-18); CALCIUM LEVEL 8.5 MG/DL (8.5-10.1); CARBON DIOXIDE LEVEL 28 MEQ/L (21-32); CHLORIDE LEVEL 105 MEQ/L (98-107); GLOMERULAR FILTRATION RATE > 60.0 (>60); GLUCOSE, FASTING 112 MG/DL (70-100); LIPASE 109 U/L (73-393); POTASSIUM SERUM 4.2 MEQ/L (3.5-5.1); SODIUM LEVEL 140 MEQ/L (136-145); TOTAL PROTEIN 6.6 GM/DL (6.4-8.2)
--- NOTE | 2018-08-29 12:34 | REP ---
CT Head without contrast HISTORY: Frontal headache COMPARISON: 02/07/2009 There is no intraparenchymal hemorrhage, acute infarct, mass or midline shift. The ventricular system is normal in appearance. There is no extra cerebral collection. There is no fracture. The visualized sinuses are clear. IMPRESSION: There is no intracranial lesion. Electronically Signed by Satnam Wesley MD 08/29/2018 12:26 P
[2018-08-29] MEDS: FIORICET TAB PO PRN (13:57)
[2018-08-29] MEDS: METOCLOPRAMIDE 5 MG TAB PO SCH ×2 (13:57→20:51)
--- NOTE | 2018-08-29 13:58 | CR.PDOC ---
General Date of Consultation: Aug 29, 2018 Referring Provider: YENNY WATKINS DO Attending Physician: YENNY WATKINS DO Consultation PRIMARY CARE PROVIDER: Dr. Thiago Del Rio CHIEF COMPLAINT: Nausea, vomiting, abdominal pain HISTORY OF PRESENT ILLNESS: This is a 28-year-old female past medical history of ADHD, GERD, migraines who presents complaining of nausea, vomiting, abdominal pain. Patient notes that Tuesday, she woke up, felt lightheaded and dizzy, followed by nausea/vomiting. Patient states she started eating crackers that's she's had a previous episode of low sodium. Patient notes that her nausea and vomiting had not subsided, she started to develop epigastric pain, that was nonradiating. Upon presenting to the ED, patient had a CT abdomen pelvis which noted a questionable small bowel obstruction, and was admitted by Dr. Watkins. Over the course of hospital physician, patient had complained of migraines, that are not subsiding, for which medicine service has been consulted. The patient notes that she has a history of migraines, and has 1 migraine per week, and is typically controlled. Patient notes that she takes Depakote for her migraines as well as nortriptyline, and follows up with the neurology clinic in [place]. Patient denies any visual deficits, or weakness with the migraines. She notes that it's mostly in the frontal region. She has no recent cold or cough, no sinus congestion. Patient also notes that she still has epigastric pain, however she was able to tolerate breakfast. She has recently been started on Reglan, Carafate, is currently on a PPI. I have discontinued her Toradol. PAST MEDICAL HISTORY: As per HPI PAST SURGICAL HISTORY: Walt Fundoplication 5-6 years ago, laparoscopic cholecystectomy SOCIAL HISTORY: Denies tobacco, alcohol, illicit drug use. FAMILY HISTORY: Brother with history of migraines ALLERGIES: Please see below. REVIEW OF SYSTEMS: HEENT: Denies sore throat/headache CARDIOVASCULAR: Denies chest pain/palpitations RESPIRATORY: Denies shortness of breath/cough GASTROINTESTINAL: denies nausea/vomiting GENITOURINARY: Denies dysuria/urinary urgency. MUSCULOSKELETAL: Denies myalgias/arthralgias NEUROLOGICAL: Denies any focal weakness HOME MEDICATIONS: Please see below. PHYSICAL EXAMINATION: Vitals: (see below) General: No acute distress, laying comfortably in bed. HEENT: Moist mucous membranes. Neck: No JVD or lymphadenopathy Cardiac: RRR, No murmurs Pulm: Clear to auscultation b/l. No wheezing, rhonchi Abd: Mild epigastric tenderness with palpation. No rebound guarding or rigidity./ND + BS Ext: No edema or cyanosis Neuro: Strength 5/5 BUE and BLE. CN 2-12 intact. F to N intact Negative pronator drift. Alert and oriented 3 LABORATORY DATA: See below. IMAGING: CT abdomen and pelvis on 08/28/18 1. Clearing of distension of the duodenum and proximal small bowel loops seen on the CT 2 days ago. No retained fluid in the duodenum and normal caliber of these loops. Stomach is normal in appearance with some oral contrast retained but not abnormally distended. No small bowel air fluid levels or dilatation and caliber normal to the terminal ileum. 2. No ascites, adenopathy, free air, mass or abnormalities of the solid organs upper abdomen. 3. No pelvic mass. Trace free fluid may be physiologic. Nothing acute. ASSESSMENT/PLAN: 1. Symptoms of acute gastroenteritis, with ? Small bowel obstruction on presentation, which has resolved. ? Rayna-Lozoya tear - patient's hemoglobin stable at this time. Patient's states that her abdominal pain has significantly improved however still has tenderness at the epigastric region. Started to tolerate her breakfast this morning. Has been continued on Reglan, Carafate, PPI. Discontinue Toradol. Given her history of Walt Fundoplication, it would not be unreasonable to consider an endoscopy if the patient's epigastric pain persists. Patient's LFTs as well as lipase are within normal limits. Her repeat CT of the abdomen and pelvis is negative for acute findings. We'll defer management to Dr. Watkins. 2. Migraines- patient is continued on Depakote, and sumatriptan for breakthrough. This may be exacerbated by the patient's nausea and vomiting. CT of the head has been completed today and is negative for acute findings. Fioricet has been ordered for breakthrough. No focal deficits on exam. Patient will need close outpatient follow-up with her neurologist Dr. Clinton, in [place]. 3. History of ADHD DVT prophylaxis SCDs Vital Signs/I&O Vital Signs Date Time Temp Pulse Resp B/P (MAP) Pulse Ox O2 Delivery O2 Flow Rate FiO2 08/29/18 07:50 98.8 62 18 117/55 (75) 96 Room Air I&O- Last 24 Hours up to 6 AM 08/29/18 06:00 Intake Total 1080 ml Output Total 700 ml Balance 380 ml Laboratory Data Labs 24H Laboratory Tests 2 08/29/18 11:34: Immature Granulocyte % (Auto) 0.2, White Blood Count 5.5, Red Blood Count 3.89L, Hemoglobin 11.9L, Hematocrit 34.7L, Mean Corpuscular Volume 89.2, Mean Corpuscular Hemoglobin 30.6, Mean Corpuscular Hemoglobin Concent 34.3, Red Cell Distribution Width 11.9, Platelet Count 145L, Neutrophils (%) (Auto) 59.7, Lymphocytes (%) (Auto) 32.3, Monocytes (%) (Auto) 6.0H, Eosinophils (%) (Auto) 1.3, Basophils (%) (Auto) 0.5, Neutrophils # (Auto) 3.3, Lymphocytes # (Auto) 1.8, Monocytes # (Auto) 0.3, Eosinophils # (Auto) 0.1, Basophils # (Auto) 0.0, Nucleated Red Blood Cells % (auto) 0.0, Prothrombin Time 14.1, Prothromb Time International Ratio 1.08, Activated Partial Thromboplast Time 29.4, Anion Gap 7L, Glomerular Filtration Rate > 60.0, Blood Urea Nitrogen 8, Creatinine 0.70, Sodium Level 140, Potassium Level 4.2, Chloride Level 105, Carbon Dioxide Level 28, Calcium Level 8.5, Aspartate Amino Transf (AST/SGOT) 13, Alanine Aminotransferase (ALT/SGPT) 18, Alkaline Phosphatase 67, Total Bilirubin 0.4, Total Protein 6.6#, Albumin 3.6, Albumin/Globulin Ratio 1.20, Lipase 109 CBC/BMP Laboratory Tests 08/29/18 11:34 Red Blood Count 3.89 L, Mean Corpuscular Volume 89.2, Mean Corpuscular Hemoglobin 30.6, Mean Corpuscular Hemoglobin Concent 34.3, Red Cell Distribution Width 11.9, Neutrophils (%) (Auto) 59.7, Lymphocytes (%) (Auto) 32.3, Monocytes (%) (Auto) 6.0 H, Eosinophils (%) (Auto) 1.3, Basophils (%) (Auto) 0.5, N eutrophils # (Auto) 3.3, Lymphocytes # (Auto) 1.8, Monocytes # (Auto) 0.3, Eosinophils # (Auto) 0.1, Basophils # (Auto) 0.0, Calcium Level 8.5, Aspartate Amino Transf (AST/SGOT) 13, Alanine Aminotransferase (ALT/SGPT) 18, Alkaline Phosphatase 67, Total Bilirubin 0.4, Total Protein 6.6 #, Albumin 3.6 Allergies Coded Allergies: Grape (Verified Allergy, Intermediate, GRAPE JUICE - HIVES, N&V, 03/02/18) Amoxicillin (Verified Adverse Reaction, Mild, vomits, 03/02/18) Azithromycin (Verified Adverse Reaction, Mild, VOMITING, 03/02/18) Cephalosporins (Verified Adverse Reaction, Mild, vomiting, 04/20/18) Home Medications Scheduled Buspirone HCl (Buspirone HCl) 10 Mg Tab, 10 MG PO BID, (Reported) Divalproex Sodium (Depakote ER) 500 Mg Tab, 500 MG PO QHS, (Reported) Omeprazole (Omeprazole) 40 Mg Cap, 40 MG PO DAILY, (Reported) Vitamin D (Vitamin D) 1,000 Unit Cap, 1,000 UNIT PO DAILY, (Reported) Scheduled PRN Naratriptan Hydrochloride (Naratriptan HCl) 2.5 Mg Tab, 2.5 MG PO ASDIRECTED PRN for MIGRAINE, (Reported) Miscellaneous Medications Levonorgestrel (Mirena) 20 Mcg/24 Hr Iud, 20 MCG IU, (Reported) BARON JERNIGAN MD Aug 29, 2018 13:58
[2018-08-29 14:23] LABS: VALPROIC ACID (DEPAKOTE) 48.6 UG/ML (50.0-100.0)
[2018-08-29 16:00] VITALS: BP 114/57
[2018-08-29 20:00] VITALS: BP 109/52
[2018-08-29] MEDS: DIVALPROEX 500MG *ER* TAB PO SCH (20:52)
[2018-08-30] VITALS: BP 105/53
[2018-08-30] MEDS: METOCLOPRAMIDE 5 MG TAB PO SCH (05:47)
[2018-08-30] MEDS: NORCO, ANEXSIA 5/325MG TABLET (HYDROcodone/ACETAMINOPHEN) PO PRN (05:48)
[2018-08-30] MEDS ORDERED: SUCR1TA PO (07:31)
[2018-08-30 08:00] VITALS: BP 111/58
[2018-08-30] MEDS: SENOKOT S TAB PO SCH (08:29)
[2018-08-30] MEDS: SUCRALFATE 1 GM TAB PO SCH (08:29)
[2018-08-30] MEDS: OMEPRAZOLE 20 MG CAP PO SCH (08:29)
[2018-08-30] MEDS: busPIRone 10 MG TAB PO SCH (08:29)
[2018-08-30] MEDS: VITAMIN D 1,000 INTERNATIONAL UNITS TABLET PO SCH (08:29)
[2018-08-30] MEDS: FIORICET TAB PO PRN (08:35)
--- NOTE | 2018-08-30 13:26 | IPNPDOC ---
Text Note Date of Service The patient was seen on 08/30/18. NOTE Subjective: Pt states YA has resolved. Tolerating breakfast. Abd pain improved. PHYSICAL EXAMINATION: Vitals: (see below) General: No acute distress, laying comfortably in bed. HEENT: Moist mucous membranes. Neck: No JVD or lymphadenopathy Cardiac: RRR, No murmurs Pulm: Clear to auscultation b/l. No wheezing, rhonchi Abd: Mild epigastric tenderness with palpation has improved since yesterday. No rebound guarding or rigidity./ND + BS Ext: No edema or cyanosis Neuro: Strength 5/5 BUE and BLE. CN 2-12 intact. F to N intact Negative pronator drift. Alert and oriented 3 LABORATORY DATA: See below. IMAGING: CT abdomen and pelvis on 08/28/18 1. Clearing of distension of the duodenum and proximal small bowel loops seen on the CT 2 days ago. No retained fluid in the duodenum and normal caliber of these loops. Stomach is normal in appearance with some oral contrast retained but not abnormally distended. No small bowel air fluid levels or dilatation and caliber normal to the terminal ileum. 2. No ascites, adenopathy, free air, mass or abnormalities of the solid organs upper abdomen. 3. No pelvic mass. Trace free fluid may be physiologic. Nothing acute. ASSESSMENT/PLAN: 1. Symptoms of acute gastroenteritis, with ? Small bowel obstruction on presentation, which has resolved. ? Rayna-Lozoya tear - patient's hemoglobin stable at this time. Patient's states that her abdominal pain has significantly improved however still has tenderness at the epigastric region. Started to tolerate her breakfast this morning. Has been continued on Reglan, Carafate, PPI. Discontinue Toradol. Given her history of Walt Fundoplication, it would not be unreasonable to consider an endoscopy if the patient's epigastric pain persists. Patient's LFTs as well as lipase are within normal limits. Her repeat CT of the abdomen and pelvis is negative for acute findings. We'll defer management to Dr. Watkins. 2. Migraines- resolved. patient is continued on Depakote, and triptan for breakthrough. Fioricet has been ordered for breakthrough. No focal deficits on exam.I have advised patient to have close outpatient follow-up with her neurologist Dr. Clinton, in [place]. 3. History of ADHD DVT prophylaxis SCDs Pt will need to f/u with PCP and Neurology in 1-2 weeks. Return to ED if symptoms worsen. VS,Fishbone, I+O VS, Fishbone, I+O Vital Signs Date Time Temp Pulse Resp B/P (MAP) Pulse Ox O2 Delivery O2 Flow Rate FiO2 08/30/18 09:15 20 Room Air 08/30/18 08:00 98.9 70 111/58 (75) 96 I&O- Last 24 Hours up to 6 AM 08/30/18 06:00 Intake Total 1790 ml Output Total 1100 ml Balance 690 ml BARON JERNIGAN MD Aug 30, 2018 13:26
--- NOTE | 2018-08-30 13:44 | DSES ---
DATE OF ADMISSION: 08/26/2018 DATE OF DISCHARGE: 08/30/2018 ADMISSION DIAGNOSIS: Small bowel obstruction. DISCHARGE DIAGNOSIS: Gastroenteritis with migraines and epigastric pain, possible Rayna Lozoya tear. HOSPITAL COURSE: The patient is a 28-year-old female who presented on the with nausea, vomiting, followed by severe epigastric pains. She came into the emergency room and was found to have a couple of dilated loops of bowel in the upper abdomen and was diagnosed with small-bowel obstruction and I admitted her overnight. The next morning when I saw her, I reviewed her images myself, did not feel that this was a bowel obstruction. I started her on a regular diet, she tolerated it well. However, she kept having the epigastric pains. She then started having migraines, we did not have her on her home medications because we do not carry them in the hospital. Triptans in the hospital were not covering her pain. I tried a GI cocktail for epigastric pain, which did not improve at all. However, we started her on Carafate which did seem to improve her symptoms. Due to her severe pains and slow improvement, I did have medicine consult to evaluate her as well during her stay. They switched around her medications for her headache and started her on some Fioricet and ordered a head CT, which was negative as well. This morning, she is feeling much better, tolerating regular diet. No more emesis. Headache is resolved for now. PLAN: The plan is to discharge home today. We will keep her on Carafate and omeprazole for at least another 2 weeks. I will have her follow up with her primary and her neurologist and she can followup with me as needed. If the epigastric pain stays persistent, we will likely recommend upper endoscopy as an outpatient.
== END 2018-08-30 11:05 | disposition home or self-care (01) | DRG 249 ==
LOC: M ED 22:12 → M ED INP 08-26 01:05 → M PED 08-26 03:31
PROVIDERS: ADMIT Surgery; ATTEND Surgery
DX: A08.4 Viral intestinal infection, unspecified (principal); K22.6 Gastro-esophageal laceration-hemorrhage syndrome; F41.9 Anxiety disorder, unspecified; K21.9 Gastro-esophageal reflux disease without esophagitis; F90.9 Attention-deficit hyperactivity disorder, unspecified type; Z90.49 Acquired absence of other specified parts of digestive tract; Z88.0 Allergy status to penicillin; Z88.1 Allergy status to other antibiotic agents; G43.909 Migraine, unspecified, not intractable, without status migrainosus; Z79.899 Other long term (current) drug therapy

== ENCOUNTER 2018-10-26 17:28 | Emergency (ER) | payer OTHER ==
[~2018-10-26] VITALS: Ht 157.5 cm; Wt 62.7 kg
[~2018-10-26 17:28] MED LIST changes: -/VITACHEW PO; -ACET50TA GT; -ACET50TA PO; +FLIN1CHW3 PO; +MAPA500T17 GT; +MAPA500T17 PO; +SUCR1TA PO
[2018-10-26] MEDS ORDERED: GABA-843 (17:34)
[2018-10-26 18:36] LABS: INFLUENZA A AMPLIFICATION POSITIVE (NEGATIVE); INFLUENZA B AMPLIFICATION NEGATIVE (NEGATIVE)
[2018-10-26] MEDS ORDERED: LIDO1SOL7 PO (19:00)
[2018-10-26] MEDS ORDERED: LIDOCAINE VISCOUS 2% SOLN 15ML UDC SS ONE (19:00)
[2018-10-26] MEDS ORDERED: OSEL75CA PO (19:00)
[2018-10-26] MEDS ORDERED: OSELTAMIVIR PHOSPHATE 75 MG CAP (TAMIFLU) PO ONE (19:00)
[2018-10-26 19:05] VITALS: BP 124/74
== END 2018-10-26 19:16 | disposition home or self-care (01) ==
LOC: M ED 17:28
DX: J09.X2 Influenza due to identified novel influenza A virus with other respiratory manifestations (principal); K21.9 Gastro-esophageal reflux disease without esophagitis; G43.909 Migraine, unspecified, not intractable, without status migrainosus; Z91.018 Allergy to other foods; Z88.0 Allergy status to penicillin; Z88.1 Allergy status to other antibiotic agents; Z79.899 Other long term (current) drug therapy; Z97.5 Presence of (intrauterine) contraceptive device

== ENCOUNTER → 2019-01-16 | Outpatient (CLI) | payer OTHER, SELFPAY ==
[~2019-01-16] MED LIST changes: +GABA-843; +LIDO1SOL8 PO; +OSEL75CA PO
--- NOTE | 2019-01-16 21:24 | REP ---
Pelvic sonography: History: Left lower quadrant pain times [address] x 1 year. Sonographic findings: Transabdominal and transvaginal scanning are included. Uterine dimensions are normal at 9.7 x 3.4 x 5.3 cm. Endometrial echo is 0.2 cm thick. IUD is in what appears to be good position. No free fluid is seen. No focal uterine mass is observed. Visualized bladder tejeda are smooth. There is a 3.9 x 3.6 x 2.7 cm simple appearing cyst in the right ovary. Right ovarian dimensions inclusive of this are 4.3 x 3.6 x 4.7 cm. The left ovary is normal measuring 3.6 x 2.1 x 2 cm. Resistive indices on Doppler interrogation of the ovaries are 0.67 and 0.68 on the right and left respectively. Impression: IUD in place. 3.9 cm simple cyst right ovary. Otherwise negative pelvic sonography. Electronically Signed by Irwin Cadena MD 01/16/2019 09:15 P
== END ==
LOC: M RAD 11:37
PROVIDERS: ATTEND Nurse Practitioner Adult Health
DX: R10.9 Unspecified abdominal pain (principal)

== ENCOUNTER → 2019-01-24 | Outpatient (REF) | payer OTHER, SELFPAY ==
[2019-01-24 13:22] LABS: APPEARANCE, URINE CLEAR (CLEAR); BACTERIA, URINE AUTO 1+ (NEGATIVE); BILIRUBIN, URINE AUTO NEGATIVE (NEGATIVE); BLOOD, URINE BLOOD NEGATIVE (NEGATIVE); COLOR, URINE STRAW (YELLOW); GLUCOSE, URINE (UA) AUTO NEGATIVE (NEGATIVE); KETONE, URINE AUTO NEGATIVE (NEGATIVE); LEUKOCYTE ESTERASE, URINE AUTO 3+ (NEGATIVE); NITRITE, URINE AUTO NEGATIVE (NEGATIVE); PROTEIN, URINE AUTO NEGATIVE (NEGATIVE); RBC, URINE AUTO 0 /HPF (0-3); SPECIFIC GRAVITY URINE AUTO 1.006 (1.002-1.035); SQUAMOUS EPITHELIAL CELL UR AU 3 /HPF (0-6); UROBILINOGEN, URINE AUTO 0.2 mg/dL (0.0-2.0); WBC, URINE AUTO 1 /HPF (0-3)
[2019-01-24 13:49] LABS: HEMATOCRIT 37.9 % (36.0-47.0); HEMOGLOBIN 12.8 g/dl (12.0-15.5); MEAN CORPUSCULAR HEMOGLOBIN 30.7 pg (27.0-33.0); MEAN CORPUSCULAR HGB CONC 33.8 g/dl (32.0-36.5); MEAN CORPUSCULAR VOLUME 90.9 fl (80.0-96.0); PLATELET COUNT, AUTOMATED 173 10^3/uL (150-450); RED BLOOD COUNT 4.17 10^6/uL (4.00-5.40); WHITE BLOOD COUNT 5.8 10^3/uL (4.0-10.0)
[2019-01-24 13:54] LABS: PERCENT SATURATION 35.2 % (13.2-45.0)
[2019-01-26 00:08] LABS: TRANSFERRIN 208 mg/dL (200-370)
== END ==
LOC: M SFHCPLAZ 10:48
PROVIDERS: ATTEND Family Medicine
DX: E53.8 Deficiency of other specified B group vitamins (principal); E61.1 Iron deficiency; R10.32 Left lower quadrant pain

== ENCOUNTER → 2019-01-25 | Outpatient (CLI) | payer OTHER, SELFPAY ==
--- NOTE | 2019-01-25 09:56 | REP ---
Supine abdomen single AP view: Comparison is 05/19/2013. The bowel gas pattern is normal. There are no calcifications. There are surgical clips in the right upper quadrant as an interval change. There is an IUD in the midline of the pelvis as an interval change. There is lumbar scoliosis convex left, as an interval change, possibly positional. Electronically Signed by Nj Hernandez MD 01/25/2019 09:48 A
== END ==
LOC: M RAD 08:49
PROVIDERS: ATTEND Family Medicine
DX: Z97.5 Presence of (intrauterine) contraceptive device (principal); M41.56 Other secondary scoliosis, lumbar region

== ENCOUNTER → 2019-02-06 | Outpatient (CLI) | payer OTHER, SELFPAY ==
[~2019-02-06] MED LIST changes: +CHOL100029 PO; +ERYT1OIN26 OS; -OMEP40CA2 PO; +OMEP40CA97 PO
--- NOTE | 2019-02-09 20:08 | SLEEPHOME ---
DATE OF PROCEDURE: 02/06/2019 ORDERED BY: Dr. Sun Diagnostic home sleep testing was performed due to concern for the obstructive sleep apnea syndrome in this patient with a history of excessive somnolence and nonrestorative sleep. For testing, a nocturnal T3 respiratory monitoring device was used. Continuous record was made of pulse, oxygen saturation, airflow, chest, abdominal strain and body position. 9 hours and 59 minutes of data were reviewed. There were 8 hours marked as time in bed. During the interval marked time in bed, there were 55 respiratory events identified of 10 seconds in duration or greater for a respiratory event index of 6.9. The events were primarily obstructive. Baseline pulse rate 72, pulse rate ranged from 51-104. Baseline saturation 94%. Saturations fell as low as 88%. Testing was performed in both the supine and nonsupine positions. IMPRESSION: Abnormal home sleep testing with repetitive respiratory events and oxygen desaturations to 88% with a respiratory event index of 6.9 is consistent with the obstructive sleep apnea syndrome. RECOMMENDATIONS: The patient should be encouraged to undergo a formal sleep evaluation.
== END ==
LOC: M SLEEP HO 11:34
PROVIDERS: ATTEND Internal Medicine Pulmonary Disease
DX: R40.0 Somnolence (principal)

== ENCOUNTER 2019-04-23 18:13 | Emergency (ER) | payer OTHER, SELFPAY ==
[~2019-04-23] VITALS: Ht 157.5 cm; Wt 59.3 kg
[~2019-04-23 18:13] MED LIST changes: -CHOL100029 PO; -ERYT1OIN26 OS; +OMEP40CA2 PO; -OMEP40CA97 PO
[2019-04-23 18:14] VITALS: BP 135/79
[2019-04-23] MEDS ORDERED: CHOL100029 PO (18:21)
== END 2019-04-23 18:56 | disposition home or self-care (01) ==
LOC: M ED 18:13
DX: S90.862A Insect bite (nonvenomous), left foot, initial encounter (principal); X58.XXXA Exposure to other specified factors, initial encounter; Y92.89 Other specified places as the place of occurrence of the external cause; Z88.1 Allergy status to other antibiotic agents; Z88.8 Allergy status to other drugs, medicaments and biological substances; Z91.018 Allergy to other foods; Z79.899 Other long term (current) drug therapy

== ENCOUNTER → 2019-05-03 | Outpatient (CLI) | payer OTHER ==
[~2019-05-03] MED LIST changes: +CHOL100029 PO
[2019-05-03 10:47] LABS: FREE T4 1.26 NG/DL (0.76-1.46); THYROID STIMULATING HORMONE 2.27 uIU/ML (0.358-3.740)
== END ==
LOC: M LAB 09:09
PROVIDERS: ATTEND Family Medicine
DX: K21.9 Gastro-esophageal reflux disease without esophagitis (principal); E53.8 Deficiency of other specified B group vitamins; R53.82 Chronic fatigue, unspecified

== ENCOUNTER 2019-06-29 19:22 | Emergency (ER) | payer OTHER ==
[~2019-06-29] VITALS: Ht 157.5 cm; Wt 62.7 kg
[~2019-06-29 19:22] MED LIST changes: -OMEP40CA2 PO; +OMEP40CA97 PO
[2019-06-29] MEDS ORDERED: PROPARACAINE 0.5% OPHTH SOL 15ML OS ONE (20:15)
[2019-06-29] MEDS ORDERED: FLUORESCEIN OPHTH 1 MG STRIP OS ONE (20:15)
[2019-06-29] MEDS ORDERED: ERYT1OIN26 OS (20:53)
[2019-06-29] MEDS ORDERED: ERYTHROMYCIN OPHTH OINT OS ONE (21:00)
[2019-06-29 21:13] VITALS: BP 129/71
== END 2019-06-29 21:25 | disposition home or self-care (01) ==
LOC: M ED 19:22
DX: T26.12XA Burn of cornea and conjunctival sac, left eye, initial encounter (principal); X13.1XXA Other contact with steam and other hot vapors, initial encounter; Y92.120 Kitchen in nursing home as the place of occurrence of the external cause; Y99.0 Civilian activity done for income or pay; Z79.899 Other long term (current) drug therapy

== ENCOUNTER → 2020-01-02 | Outpatient (CLI) | payer OTHER ==
[~2020-01-02] MED LIST changes: +E-Z-GAS II EFFERVESCENT PACKET (SODIUM BICARB./CITRIC ACID/SIMETHICONE) As Ordered ONE; +E-Z-HD 98% w/w 340GM SUSP BTL As Ordered ONE; +E-Z-PAQUE 96% w/w SUSP 176GM BTL As Ordered ONE; +ERYT5OIN25 OS; -LIDO1SOL8 PO; +LIDO2SOL17 PO
--- NOTE | 2020-01-03 11:17 | REP ---
Upper GI air contrast The procedure was performed under the direct supervision of Dr. Wheeler. The images were reviewed with Dr. Wheeler The degreaser film shows no organomegaly or pathological masses. The intestinal gas pattern is non-specific. There are surgical clips in the right upper quadrant. There is an IUD in place. Liquid barium and gas producing crystals were given in the erect position as well as liquid barium in the prone oblique position in order to perform a double contrast upper GI examination. The oral and pharyngeal stages of deglutition are unremarkable. Esophageal transport is prompt and efficient and there is no esophagitis, stricture, mucosal ring or hiatal hernia. The patient is status post Walt fundoplication. Gastroesophageal reflux is not demonstrated on this examination The stomach tejeda are normally outlined . The rugal folds are smooth and regular. There is no gastritis neoplasm or ulcer disease. The duodenal tejeda are normally outlined . The mucosal folds are smooth and regular. There is no duodenitis pancreatitis peptic ulcer disease or neoplasm. The visualized portion of the proximal small bowel appears normal in course and caliber. Impression: Postsurgical changes consistent with the patient's history of Walt fundoplication. Otherwise, unremarkable double contrast upper GI examination. 1.1 minutes of fluoro time was utilized for this procedure. Electronically Signed by PASCALE Culp 01/02/2020 05:26 P Electronically Signed by Nj Wheeler MD 01/03/2020 11:08 A
== END ==
LOC: M RAD 10:31
PROVIDERS: ATTEND Physician Assistant Medical
DX: K21.0 Gastro-esophageal reflux disease with esophagitis (principal)

== ENCOUNTER 2020-02-18 16:11 | Emergency (ER) | payer OTHER ==
[~2020-02-18] VITALS: Ht 157.5 cm; Wt 68.1 kg
[~2020-02-18 16:11] MED LIST changes: -E-Z-GAS II EFFERVESCENT PACKET (SODIUM BICARB./CITRIC ACID/SIMETHICONE) As Ordered ONE; -E-Z-HD 98% w/w 340GM SUSP BTL As Ordered ONE; -E-Z-PAQUE 96% w/w SUSP 176GM BTL As Ordered ONE
[2020-02-18 16:12] VITALS: BP 124/67
[2020-02-18] MEDS ORDERED: PANT40TA29 (16:17)
--- NOTE | 2020-02-19 04:03 | REP ---
RIGHT ANKLE, FOUR VIEWS: There is no evidence of an acute fracture, dislocation, or intrinsic bone disease. IMPRESSION: No fracture or dislocation. Electronically Signed by Nj Wheeler MD 02/19/2020 11:58 P
[2020-04-03] MEDS ORDERED: D31000TA2 PO (15:47)
[2020-04-03] MEDS ORDERED: MIRE1IUD IU (15:47)
[2020-04-03] MEDS ORDERED: OMEP40CA97 PO (15:47)
== END 2020-02-18 17:27 | disposition home or self-care (01) ==
LOC: M ED 16:11
DX: S93.401A Sprain of unspecified ligament of right ankle, initial encounter (principal); X50.9XXA Other and unspecified overexertion or strenuous movements or postures, initial encounter; Y92.009 Unspecified place in unspecified non-institutional (private) residence as the place of occurrence of the external cause; G47.33 Obstructive sleep apnea (adult) (pediatric); K21.9 Gastro-esophageal reflux disease without esophagitis; F41.9 Anxiety disorder, unspecified; F90.9 Attention-deficit hyperactivity disorder, unspecified type; Z88.0 Allergy status to penicillin; Z91.018 Allergy to other foods

== ENCOUNTER → 2020-03-30 | Outpatient (CLI) | payer OTHER ==
[~2020-03-30] MED LIST changes: +D31000TA2 PO; +GABA-843 PO; +PANT40TA29
== END ==
LOC: M LABSMTC 11:00
PROVIDERS: ATTEND Anesthesiology
DX: Z11.59 Encounter for screening for other viral diseases (principal)
CPT/HCPCS: C9803; U0003

== ENCOUNTER 2020-04-04 14:16 | Day surgery (SDC) | payer OTHER ==
[~2020-04-04] VITALS: Ht 157.5 cm; Wt 67.6 kg
[~2020-04-04 14:16] MED LIST changes: -GABA-843 PO; +NS 1,000 ML IV SCH
[2020-04-04] MEDS ORDERED: GABA-843 PO (14:51)
[2020-04-04] MEDS ORDERED: LIDOCAINE 2% 100MG/5ML SDV (FOR ANES.) As Ordered ONE (15:17)
[2020-04-04] MEDS ORDERED: propofoL 200 MG/20 ML VIAL As Ordered ONE (15:17)
[2020-04-04 16:00] VITALS: BP 125/78
--- NOTE | 2020-04-16 11:36 | ROOR ---
Patient Name: Johanna Rodriguez Procedure Date: 04/04/2020 12:16 PM Date of : 1990 Age: 29 Room: [facility] Gender: Female Note Status: Finalized Procedure: Upper GI endoscopy Indications: Heartburn, Failure to respond to medical treatment Providers: Jeramie WOOD MD Referring MD: Ayala Lucio MD Requesting Provider: Medicines: Monitored Anesthesia Care Complications: No immediate complications. Procedure: Pre-Anesthesia Assessment: - The heart rate, respiratory rate, oxygen saturations, blood pressure, adequacy of pulmonary ventilation, and response to care were monitored throughout the procedure. The Endoscope was introduced through the mouth, and advanced to the second part of duodenum. The upper GI endoscopy was accomplished without difficulty. The patient tolerated the procedure well. Findings: The examined esophagus was normal. Evidence of a Walt fundoplication was found in the cardia. The wrap appeared intact. The entire examined stomach was normal. The examined duodenum was normal. Impression: - Normal esophagus. - A Walt fundoplication was found. The wrap appears intact. - Normal stomach. - Normal examined duodenum. - No specimens collected. Recommendation: - Continue present medications. - Use Gaviscon PO as directed. 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 Would continue your current medications and try adding Gaviscon 1-2 tabs two to three times a day. Jeramie Wood MD Jeramie WOOD MD 04/04/2020 3:26:34 PM Electronically signed by Jeramie WOOD MD Number of Addenda: 0 Note Initiated On: 04/04/2020 12:16 PM Estimated Blood Loss: Estimated blood loss: none.
== END 2020-04-04 16:13 | disposition home or self-care (01) ==
LOC: M OPP 14:16
PROVIDERS: ATTEND Internal Medicine Gastroenterology
DX: Z98.890 Other specified postprocedural states (principal); R12 Heartburn; Z79.899 Other long term (current) drug therapy; Z88.1 Allergy status to other antibiotic agents; Z91.018 Allergy to other foods

== ENCOUNTER → 2020-11-06 | Outpatient (REF) | payer OTHER ==
[~2020-11-06] MED LIST changes: +GABA-282; +GABA-282 PO; -GABA-843; -NS 1,000 ML IV SCH
== END ==
LOC: M SFHCPLAZ 13:23
PROVIDERS: ATTEND Family Medicine
DX: Z12.4 Encounter for screening for malignant neoplasm of cervix (principal)

== ENCOUNTER → 2020-11-07 | Outpatient (CLI) | payer OTHER ==
--- NOTE | 2020-11-07 13:43 | REP ---
INDICATION: IUD NOT VISABLE. COMPARISON: None. TECHNIQUE: Transabdominal, endovaginal and Doppler ultrasound imaging are performed. FINDINGS: There is an intrauterine IUD within the endometrial canal in the fundal and body portions of the uterus in satisfactory position. The uterus is anteverted and normal size measuring 8.0 x 3.6 x 4.7 cm. The endometrium is not thickened measuring 3.6 mm. Right ovary: The right ovary measures 2.1 x 2.5 x 1.5 cm and is normal size. There is a 1.1 cm right ovarian follicle. Left ovary: The left ovary measures 3.2 x 2.6 x 2.8 cm and is normal size. There is a 2.0 cm complex cyst, possibly an involuting follicle. The bladder appears adequately distended. No bladder wall nodules or masses are identified. There is vascular flow in both ovaries. The Doppler resistive index in the parenchymal arteries of the right ovary is 0.38 and left ovary 0.61. IMPRESSION: There is an IUD within the endometrial canal satisfactory positioned in the body and fundal portion of the canal. There is a right ovarian follicle as described. There is an involuting left ovarian cyst as described. There is vascular flow in both ovaries. <Electronically signed by Nj Hernandez > 11/07/20 [id number]
== END ==
LOC: M RAD 10:33
PROVIDERS: ATTEND Family Medicine
DX: Z30.431 Encounter for routine checking of intrauterine contraceptive device (principal)

== ENCOUNTER → 2020-11-19 | Outpatient (REF) | payer OTHER | LOC: M SFHCPLAZ 09:59 | PROVIDERS: ATTEND Family Medicine | DX: L98.9 Disorder of the skin and subcutaneous tissue, unspecified (principal) ==

== ENCOUNTER → 2021-06-09 | Outpatient (REF) | payer OTHER ==
[~2021-06-09] MED LIST changes: +OMEP40CA4 PO; -OMEP40CA97 PO
== END ==
LOC: M SFHCPLAZ 17:17
PROVIDERS: ATTEND Family Medicine
DX: B34.9 Viral infection, unspecified (principal)

== ENCOUNTER 2021-06-28 20:18 | Emergency (ER) | payer OTHER ==
[~2021-06-28] VITALS: Ht 157.5 cm; Wt 68.5 kg
[2021-06-28 20:19] VITALS: BP 112/71
--- OUTSIDE RECORDS SUMMARY | 2021-06-28 20:26 | CCD ---
Author Author [facility] Organization [facility] Address Unknown Phone Unavailable Care Team Providers Care Manager Business [employer]ing Name Role Phone Dawood SAMPSON Unavailable Unavailable Dawood SAMPSON Unavailable Unavailable Dawood SAMPSON Unavailable Unavailable Dawood SAMPSON Unavailable Unavailable DRAZEK, I ABRAHAM PA Unavailable Unavailable DRAZEK, I ABRAHAM PA Unavailable Unavailable DRAZEK, I ABRAHAM PA Unavailable Unavailable DRAZEK, I ABRAHAM PA Unavailable Unavailable DRAZEK, I ABRAHAM PA Unavailable Unavailable DRAZEK, I ABRAHAM PA Unavailable Unavailable DRAZEK, I ABRAHAM PA Unavailable Unavailable DRAZEK, I ABRAHAM PA Unavailable Unavailable DRAZEK, I ABRAHAM PA Unavailable Unavailable DRAZEK, I ABRAHAM PA Unavailable Unavailable DRAZEK, I ABRAHAM PA Unavailable Unavailable DRAZEK, I ABRAHAM PA Unavailable Unavailable DRAZEK, I ABRAHAM PA Unavailable Unavailable DRAZEK, I ABRAHAM PA Unavailable Unavailable DRAZEK, I ABRAHAM PA Unavailable Unavailable DRAZEK, I ABRAHAM PA Unavailable Unavailable DRAZEK, I ABRAHAM PA Unavailable Unavailable DRAZEK, I ABRAHAM PA Unavailable Unavailable DRAZEK, I ABRAHAM PA Unavailable Unavailable DRAZEK, I ABRAHAM PA Unavailable Unavailable DRAZEK, I ABRAHAM PA Unavailable Unavailable DRAZEK, I ABRAHAM PA Unavailable Unavailable DRAZEK, I ABRAHAM PA Unavailable Unavailable DRAZEK, I ABRAHAM PA Unavailable Unavailable DRAZEK, I ABRAHAM PA Unavailable Unavailable DRAZEK, I ABRAHAM PA Unavailable Unavailable Re-disclosure Warning The records that you are about to access may contain information from federally-assisted alcohol or drug abuse programs. If such information is present, then the following federally mandated warning applies: This information has been disclosed to you from records protected by federal confidentiality rules (42 CFR part 2). The federal rules prohibit you from making any further disclosure of this information unless further disclosure is expressly permitted by the written consent of the person to whom it pertains or as otherwise permitted by 42 CFR part 2. A general authorization for the release of medical or other information is NOT sufficient for this purpose. The Federal rules restrict any use of the information to criminally investigate or prosecute any alcohol or drug abuse patient.The records that you are about to access may contain highly sensitive health information, the redisclosure of which is protected by Article 27-F of the [facility] Public Health law. If you continue you may have access to information: Regarding HIV / AIDS; Provided by facilities licensed or operated by the [facility] Office of Mental Health; or Provided by the [facility] Office for People With Developmental Disabilities. If such information is present, then the following [facility] mandated warning applies: This information has been disclosed to you from confidential records which are protected by state law. State law prohibits you from making any further disclosure of this information without the specific written consent of the person to whom it pertains, or as otherwise permitted by law. Any unauthorized further disclosure in violation of state law may result in a fine or shelter sentence or both. A general authorization for the release of medical or other information is NOT sufficient authorization for further disc losure. Family History Family Member Name Family Member Gender Family Member Status Date o f Status Description Data Source(s) Unknown Unknown Problem [facility] ([facility], [facility]) Encounters Encounter Providers Location Date Indications Data Source(s ) Outpatient [address] [facility] [id number] 06/09/2021 12:00:00 AM EDT eCW1 ([facility]) Unknown [address] [facility] [id number] 06/08/2021 12:00:00 AM EDT eCW1 ([facility]) Outpatient [address] [facility] [id number] 11/26/2020 12:00:00 AM EDT eCW1 ([facility]) Outpatient [address] [facility] [id number] 11/19/2020 12:00:00 AM EDT eCW1 ([facility]) Unknown [address] [facility] [id number] 11/07/2020 12:00:00 AM EDT eCW1 ([facility]) Outpatient [address] [facility] [id number] 11/06/2020 12:00:00 AM EDT eCW1 ([facility]) Unknown [address] [facility] [id number] 10/03/2020 12:00:00 AM EST eCW1 ([facility]) OFFICE OUTPATIENT VISIT 15 MINUTES Attender: ABRAHAM VERGARA Phys ical Therapy 09/30/2020 10:00:00 AM EST [facility]ENT ([facility]) Unknown [address] [facility] [place] [address] 2020 12:00:00 AM EST eCW1 ([facility]) Medications Medication Brand Name Start Date Product Form Dose Route Admi nistrative Instructions Pharmacy Instructions Status Indications Reaction Description Data Source(s) 200 mg 06/09/2021 12:00:00 AM EDT capsule 30 TAKE ONE CAPSULE BY MOUTH THREE TIMES A DAY FOR 10 DAYS TAKE ONE CAPSULE BY MOUTH THREE TIMES A DAY FOR 10 DAY S SOLD: 06/09/2021 [facility] benzonatate 200 MG Oral Capsule Benzonatate 200 MG Benzonata te 200 MG 06/09/2021 12:00:00 AM EDT 1.0 {capsule} active B enzonatate 200 MG eCW1 ([facility]) valacyclovir 1000 MG Oral Tablet VALACYCLOVIR HCL 11/08/2020 12: 00:00 AM EDT tablet 20 TAKE TWO TABLETS BY MOUTH TWICE A DAY FOR 1 DAY NEEDED FOR COLD SORES TAKE TWO TABLETS BY MOUTH TWICE A DAY FOR 1 DAY NEE DED FOR COLD SORES SOLD: 11/11/2020 [facility] buspirone hydrochloride 10 MG Oral Tablet BUSPIRONE HCL 11/08/2020 12:00:00 AM EDT tablet 60 TAKE ONE TABLET BY MOUTH TWI CE A DAY TAKE ONE TABLET BY MOUTH TWICE A DAY SOLD: 11/11/2020 [facility] pantoprazole 40 MG Delayed Release Oral Tablet PANTOPRAZOLE SODIUM 11/08/2020 12:00:00 AM EDT tablet,delayed release (DR/EC) 30 T ALVIN ONE TABLET BY MOUTH EVERY DAY TAKE ONE TABLET BY MOUTH EVERY DAY SOLD: 11/11/2020 [facility] 300 mg 11/08/2020 12:00:00 AM EDT capsule 30 TAKE ONE CAPSULE BY MOUTH EVERY DAY TAKE ONE CAPSULE BY MOUTH EVERY DAY SOLD: 11/11/2020 [facility] valacyclovir 1000 MG Oral Tablet Valacyclovir HCl 1 GM Valac yclovir HCl 1 GM 11/06/2020 12:00:00 AM EDT active Valacyclovir HCl 1 GM eCW1 ([facility]) valacyclovir 1000 MG Oral Tablet Valacyclovir HCl 1 GM Valac yclovir HCl 1 GM 11/06/2020 12:00:00 AM EDT active Valacyclovir HCl 1 GM eCW1 ([facility]) valacyclovir 1000 MG Oral Tablet Valacyclovir HCl 1 GM Valac yclovir HCl 1 GM 11/06/2020 12:00:00 AM EDT active Valacyclovir HCl 1 GM eCW1 ([facility]) valacyclovir 1000 MG Oral Tablet valACYclovir HCl 1 GM valAC Yclovir HCl 1 GM 11/06/2020 12:00:00 AM EDT active valACYclovir HCl 1 GM eCW1 ([facility]) valacyclovir 1000 MG Oral Tablet Valacyclovir HCl 1 GM Valac yclovir HCl 1 GM 11/06/2020 12:00:00 AM EDT active Valacyclovir HCl 1 GM eCW1 ([facility]) valacyclovir 1000 MG Oral Tablet valACYclovir HCl 1 GM valAC Yclovir HCl 1 GM 11/06/2020 12:00:00 AM EDT active eCW1 ([facility]) 500 mg 10/16/2019 12:00:00 AM EDT tablet 30 TAKE ONE TABLET BY MOUTH EVERY DAY TAKE ONE TABLET BY MOUTH EVERY DAY SOLD: 09/08/2020 [facility] Insurance Providers Payer name Policy type / Coverage type Policy ID Covered libertarian ID Covered libertarian's relationship to dwyer Policy Dwyer Plan Information MEDICAID [id number] SP [id number] BLUE CROSS GALINDO PLAN [id number] SP [id number] O BLUE [id number] SP [id number] BLUE CHOICE OPTIONS 7 [id number] Medicaid Dental S [id number] S [id number] [facility] Health Maintenance Organization ([facility]) [id number] Self [id number] [facility] Health Maintenance Organization (O) [id number] Self [id number] [facility] Health Maintenance Organization ([facility]) [id number] Self [id number] [facility] Health Maintenance Organization (HMO) [id number] Self [id number] [facility] Health Maintenance Organization (HMO) [id number] Self [id number] [facility] COMMUNITY PLAN [facility] [id number] SP [id number] ANSI-Medicaid [id number] [facility] COMMUNITY PLAN [facility] [id number] SP [id number] ANSI-Medicaid [id number] ANSI-Medicaid [id number] [facility] COMMUNITY PLAN [facility] [id number] SP [id number] Community [facility] Commercial [id number] Self [id number] [facility] [id number] S [id number] [facility] Health Maintenance Organization (HMO) [id number] Self [id number] ANSI-Medicaid [id number] ANSI-Medicaid [id number] ANSI-Medicaid [id number] ANSI-Medicaid [id number] BC/BS Family Health Plus Medigap Part B [id number] Self [id number] [place] Med[place] [id number] Self [id number] BC/BS Family Health Plus Medigap Part B [id number] Self [id number] [place] Medigap [place] [id number] Self [id number] BC/BS Family Health Plus Medigap Part B [id number] Self [id number] [place] Medigap [place] [id number] Self [id number] BC/BS Family Health Plus Medigap Part B [id number] Self [id number] [place] Medigap [place] [id number] Self [id number] BC/BS Family Health Plus Medigap Part B [id number] Self [id number] Medicaid [place] Medigap Part B [id number] Self [id number] Community Plan - [facility] Commercial [id number] Self [facility] COMMUNITY PLAN MCDO [id number] SP [id number] SELF PAY ONLY UNAVAILABLE SP UNAV AILABLE SELF PAY UNAVAILABLE SP UNAVAILA BLE [facility] Commercial [id number] Self SELFPAY 5 UNAVAILABLE 1 UNAVAILA BLE MEDICAID 3 [id number] 1 [id number] D [facility] Care [facility] O [id number] S [id number] D Managed Care [facility] P [id number] S [id number] MEDICAID W [id number] S [id number] MEDICAID W [id number] S [id number] MEDICAID REF AMBULAT W [id number] S [id number] BLUE CHOICE OPTION O [id number] S [id number] MEDICAID W [id number] HMO BLUE [id number] SP [id number] [facility] COMMUNITY PLAN MCDO [id number] SP [id number] [facility] COMMUNITY PLAN MCDO [id number] SP [id number] [facility] COMMUNITY PLAN MCDO [id number] SP [id number] [facility]) O [id number] S [id number] [facility] Essential Plan P UNAVAILABLE S UNAVAILABLE D [facility] CHP/Essential Plan P UNAVAILABLE S UNAVAILABLE [facility] MANAGEMENT [facility] [id number] SP [id number] SELF PAY ONLY [id number] SP [id number] ANSI-Medicaid [id number] ANSI-Not a Secondary Insurance [id number] SELF PAY ONLY [id number] SP [id number] [facility] COMMUNITY [facility] [id number] SP [id number] Problems, Conditions, and Diagnoses Code Display Name Description Problem Type Effective Dates Data Source(s) N91.2 [id number] Amenorrhea Problem 11/06/2020 12:00:00 AM ED T eCW1 ([facility]) Surgeries/Procedures Procedure Description Date Indications Data Source(s) Medication: 1% Lidocaine with Epinephrine intradermal 11/19/2020 12:00:00 AM EDT eCW1 ([facility]) Medication: Triple Antibiotic packets (neomycin/bacitr acin/polymyxinb) ointment 11/19/2020 12:00:00 AM EDT eCW1 ([facility]) MRI Lower Extremity Any Joint 10/03/2020 12:00:[address] [facility] ([facility] ) RADEX FOOT COMPLETE MINIMUM 3 VIEWS 09/30/2020 12:00:0 0 AM EST MEDENT ([facility] ) APPLICATION MODALITY 1/> AREAS HOT/COLD PACKS 05/27/20 12:00:00 AM EDT MEDENT ([facility] ) THERAPEUTIC PX 1/> AREAS EACH 15 MIN EXERCISES 020 12:00:00 AM EDT MEDENT ([facility] ) APPLICATION MODALITY 1/> AREAS HOT/COLD PACKS 05/21/20 12:00:00 AM EDT MEDENT ([facility] ) THERAPEUTIC PX 1/> AREAS EACH 15 MIN EXERCISES 020 12:00:00 AM EDT MEDENT ([facility] ) Physical Therapy Eval - Low Complexity 05/19/2020 12:0 0:00 AM EDT MEDENT ([facility] ) Results ID Date Data Source [id number] 06/15/2021 12:00:00 AM EST [facility] Name Value Range Interpretation Code Description Data Erna rce(s) Supporting Document(s) SARS coronavirus 2 Ag Negative [facility] This lab was ordered by [facility] and reported by [facility]. ID Date Data Source [id number] 06/09/2021 11:59:00 AM EDT [facility] Name Value Range Interpretation Code Description Data Erna rce(s) Supporting Document(s) SARS COVID ANTIGEN NEGATIVE [facility] This lab was ordered by JOVAN feldman nd reported by [facility]. ID Date Data Source Coronavirus 2019 Nasopharygeal (Send Out) COVID 06/09/2021 1 2:00:00 AM EDT eCW1 ([facility]) Name Value Range Interpretation Code Description Data Erna rce(s) Supporting Document(s) Coronavirus 2019 Nasophar ygeal (Send Out) COVID eCW1 ([facility]) ID Date Data Source SHY COVID AG (Point of Care) 06/09/2021 12:00:00 AM EDT eC W1 ([facility]) Name Value Range Interpretation Code Description Data Erna rce(s) Supporting Document(s) NEGATIVE NEGATIVE SHY COVID ANTIGEN eCW1 ([facility]) ID Date Data Source [id number] 04/20/2021 12:00:00 AM EDT [facility] Name Value Range Interpretation Code Description Data Erna rce(s) Supporting Document(s) SARS coronavirus 2 Ag Negative [facility] This lab was ordered by [facility] and reported by [facility]. ID Date Data Source [id number] 04/06/2021 12:00:00 AM EDT [facility] Name Value Range Interpretation Code Description Data Erna rce(s) Supporting Document(s) SARS coronavirus 2 Ag Negative [facility] This lab was ordered by [facility] and reported by [facility]. ID Date Data Source [id number] 03/30/2021 12:00:00 AM EDT [facility] Name Value Range Interpretation Code Description Data Erna rce(s) Supporting Document(s) SARS coronavirus 2 Ag Negative [facility] This lab was ordered by [facility] and reported by [facility]. ID Date Data Source [id number] 03/24/2021 12:00:00 AM EDT [facility] Name Value Range Interpretation Code Description Data Erna rce(s) Supporting Document(s) SARS coronavirus 2 Ag Negative [facility] This lab was ordered by [facility] and reported by [facility]. ID Date Data Source [id number] 02/24/2021 12:00:00 AM EDT [facility] Name Value Range Interpretation Code Description Data Erna rce(s) Supporting Document(s) SARS coronavirus 2 Ag Negative [facility] This lab was ordered by [facility] and reported by [facility]. ID Date Data Source [id number] 02/03/2021 12:00:00 AM EDT [facility] Name Value Range Interpretation Code Description Data Erna rce(s) Supporting Document(s) SARS coronavirus 2 Ag Negative [facility] This lab was ordered by [facility] and reported by [facility]. ID Date Data Source [id number] 01/28/2021 12:00:00 AM EDT [facility] Name Value Range Interpretation Code Description Data Erna rce(s) Supporting Document(s) SARS coronavirus 2 Ag Negative [facility] This lab was ordered by [facility] and reported by [facility]. ID Date Data Source [id number] 01/27/2021 02:04:00 PM EDT [facility] Name Value Range Interpretation Code Description Data Erna rce(s) Supporting Document(s) SARS-CoV-2 (COVID-19) RNA [Presence] in Respiratory specimen by REX with probe detection Not Detected [facility] This lab was ordered by [facility] and reported by [employer] ID Date Data Source [id number] 01/22/2021 12:00:00 AM EDT [facility] Name Value Range Interpretation Code Description Data Erna rce(s) Supporting Document(s) SARS coronavirus 2 Ag Negative [facility] This lab was ordered by [facility] and reported by [facility]. ID Date Data Source [id number] 01/20/2021 08:16:00 AM EDT [facility] Name Value Range Interpretation Code Description Data Erna rce(s) Supporting Document(s) SARS-CoV-2 (COVID-19) RNA [Presence] in Respiratory specimen by REX with probe detection Not Detected [facility] This lab was ordered by [facility] and reported by [employer]. ID Date Data Source [id number] 01/13/2021 08:59:00 AM EDT [facility] Name Value Range Interpretation Code Description Data Erna rce(s) Supporting Document(s) SARS-CoV-2 (COVID-19) RNA [Presence] in Respiratory specimen by REX with probe detection Not Detected [facility] This lab was ordered by [facility] and reported by [employer]. ID Date Data Source [id number] 01/06/2021 09:19:00 AM EDT [facility] Name Value Range Interpretation Code Description Data Erna rce(s) Supporting Document(s) SARS-CoV-2 (COVID-19) RNA [Presence] in Respiratory specimen by REX with probe detection Not Detected [facility] This lab was ordered by [facility] and reported by [employer] ID Date Data Source [id number] 12/30/2020 08:14:00 AM EDT [facility] Name Value Range Interpretation Code Description Data Erna rce(s) Supporting Document(s) SARS-CoV-2 (COVID-19) RNA [Presence] in Respiratory specimen by REX with probe detection Not Detected [facility] This lab was ordered by [facility] and reported by [employer]. ID Date Data Source [id number] 12/26/2020 12:00:00 AM EDT [facility] Name Value Range Interpretation Code Description Data Erna rce(s) Supporting Document(s) SARS coronavirus 2 Ag Negative [facility] This lab was ordered by [facility] and reported by [facility]. ID Date Data Source [id number] 12/23/2020 08:31:00 AM EDT [facility] Name Value Range Interpretation Code Description Data Erna rce(s) Supporting Document(s) SARS-CoV-2 (COVID-19) RNA [Presence] in Respiratory specimen by REX with probe detection Not Detected [facility] This lab was ordered by [facility] and reported by [employer]. ID Date Data Source [id number] 12/19/2020 12:00:00 AM EDT [facility] Name Value Range Interpretation Code Description Data Erna rce(s) Supporting Document(s) SARS coronavirus 2 Ag Negative [facility] This lab was ordered by [facility] and reported by [facility]. ID Date Data Source [id number] 12/16/2020 01:38:00 PM EDT [facility] Name Value Range Interpretation Code Description Data Erna rce(s) Supporting Document(s) SARS-CoV-2 (COVID-19) RNA [Presence] in Respiratory specimen by REX with probe detection Not Detected [facility] This lab was ordered by [facility] and reported by [employer] ID Date Data Source [id number] 12/12/2020 12:00:00 AM EDT [facility] Name Value Range Interpretation Code Description Data Erna rce(s) Supporting Document(s) SARS coronavirus 2 Ag Negative [facility] This lab was ordered by [facility] and reported by [facility]. ID Date Data Source [id number] 12/11/2020 09:00:00 AM EDT [facility] Name Value Range Interpretation Code Description Data Erna rce(s) Supporting Document(s) SARS-CoV-2 (COVID-19) RNA [Presence] in Respiratory specimen by REX with probe detection Not Detected [facility] This lab was ordered by [facility] and reported by [employer] ID Date Data Source [id number] 12/02/2020 12:51:00 PM EDT [facility] Name Value Range Interpretation Code Description Data Erna rce(s) Supporting Document(s) SARS-CoV-2 (COVID-19) RNA [Presence] in Respiratory specimen by REX with probe detection Not Detected [facility] This lab was ordered by [facility] and reported by [employer] ID Date Data Source [id number] 11/25/2020 11:54:00 AM EDT [facility] Name Value Range Interpretation Code Description Data Erna rce(s) Supporting Document(s) SARS-CoV-2 (COVID-19) RNA [Presence] in Respiratory specimen by REX with probe detection Not Detected [facility] This lab was ordered by [facility] and reported by [employer] ID Date Data Source [id number] 11/18/2020 06:00:00 AM EDT [facility] Name Value Range Interpretation Code Description Data Erna rce(s) Supporting Document(s) SARS-CoV-2 (COVID-19) RNA [Presence] in Respiratory specimen by REX with probe detection Not Detected [facility] This lab was ordered by [facility] and reported by [employer] ID Date Data Source [id number] 11/11/2020 10:05:00 AM EDT [facility] Name Value Range Interpretation Code Description Data Erna rce(s) Supporting Document(s) SARS-CoV-2 (COVID-19) RNA [Presence] in Respiratory specimen by REX with probe detection Not Detected [facility] This lab was ordered by [facility] and reported by [facility]. ID Date Data Source [id number] 11/04/2020 03:10:00 PM EDT [facility] Name Value Range Interpretation Code Description Data Erna rce(s) Supporting Document(s) SARS-CoV-2 (COVID-19) RNA [Presence] in Respiratory specimen by REX with probe detection Not Detected [facility] This lab was ordered by [facility] and reported by [employer] ID Date Data Source [id number] 11/04/2020 12:00:00 AM EDT [facility] Name Value Range Interpretation Code Description Data Erna rce(s) Supporting Document(s) SARS coronavirus 2 Ag Negative [facility] This lab was ordered by [facility] and reported by [facility]. ID Date Data Source [id number] 10/28/2020 07:02:00 AM EDT [facility] Name Value Range Interpretation Code Description Data Erna rce(s) Supporting Document(s) SARS coronavirus 2 RNA Not Detected [facility] This lab was ordered by [facility] and reported by [facility]. ID Date Data Source [id number] 10/24/2020 12:00:00 AM EDT [facility] Name Value Range Interpretation Code Description Data Erna rce(s) Supporting Document(s) SARS coronavirus 2 Ag Negative [facility] This lab was ordered by [facility] and reported by [facility]. ID Date Data Source [id number] 10/21/2020 12:00:00 PM EDT [facility] Name Value Range Interpretation Code Description Data Erna rce(s) Supporting Document(s) SARS coronavirus 2 RNA Not Detected [facility] This lab was ordered by [facility] and reported by [facility]. ID Date Data Source [id number] 10/14/2020 08:30:00 AM EST [facility] Name Value Range Interpretation Code Description Data Erna rce(s) Supporting Document(s) SARS coronavirus 2 RNA Not Detected [facility] This lab was ordered by [facility] and reported by [facility]. ID Date Data Source [id number] 10/07/2020 03:00:00 PM EST [facility] Name Value Range Interpretation Code Description Data Erna rce(s) Supporting Document(s) SARS coronavirus 2 RNA Not Detected [facility] This lab was ordered by [facility] and reported by [facility]. ID Date Data Source [id number] 09/30/2020 02:30:00 PM EST [facility] Name Value Range Interpretation Code Description Data Erna rce(s) Supporting Document(s) SARS coronavirus 2 RNA Not Detected [facility] This lab was ordered by [facility] and reported by [facility]. ID Date Data Source [id number] 09/26/2020 12:00:00 AM EST [facility] Name Value Range Interpretation Code Description Data Erna rce(s) Supporting Document(s) SARS coronavirus 2 Ag Negative [facility] This lab was ordered by [facility] and reported by [facility]. ID Date Data Source [id number] 09/23/2020 12:50:00 PM EST [facility] Name Value Range Interpretation Code Description Data Erna rce(s) Supporting Document(s) SARS coronavirus 2 RNA Not Detected [facility] This lab was ordered by [facility] and reported by [facility]. ID Date Data Source [id number] 09/16/2020 06:24:00 AM EST [facility] Name Value Range Interpretation Code Description Data Erna rce(s) Supporting Document(s) SARS coronavirus 2 RNA Not Detected [facility] This lab was ordered by [facility] and reported by [facility]. ID Date Data Source [id number] 09/09/2020 12:55:00 PM EST [facility] Name Value Range Interpretation Code Description Data Erna rce(s) Supporting Document(s) SARS coronavirus 2 RNA Not Detected [facility] This lab was ordered by [facility] and reported by [facility]. ID Date Data Source [id number] 09/02/2020 02:00:00 PM EST [facility] Name Value Range Interpretation Code Description Data Erna rce(s) Supporting Document(s) SARS coronavirus 2 RNA Not Detected [facility] This lab was ordered by [facility] and reported by [facility]. ID Date Data Source [id number] 08/26/2020 02:40:00 PM EST [facility] Name Value Range Interpretation Code Description Data Erna rce(s) Supporting Document(s) SARS coronavirus 2 RNA Not Detected [facility] This lab was ordered by [facility] and reported by [facility]. ID Date Data Source [id number] 08/19/2020 03:00:00 PM EST [facility] Name Value Range Interpretation Code Description Data Erna rce(s) Supporting Document(s) SARS coronavirus 2 RNA Not Detected [facility] This lab was ordered by [facility] and reported by [facility]. ID Date Data Source [id number] 08/12/2020 08:00:00 AM EST [facility] Name Value Range Interpretation Code Description Data Erna rce(s) Supporting Document(s) SARS coronavirus 2 RNA Not Detected [facility] This lab was ordered by [facility] and reported by [facility]. ID Date Data Source [id number] 08/05/2020 03:05:00 PM EST [facility] Name Value Range Interpretation Code Description Data Erna rce(s) Supporting Document(s) SARS coronavirus 2 RNA [facility] This lab was ordered by [facility] and reported by [facility]. ID Date Data Source [id number] 07/29/2020 12:00:00 PM EST [facility] Name Value Range Interpretation Code Description Data Erna rce(s) Supporting Document(s) SARS coronavirus 2 RNA [facility] This lab was ordered by [facility] and reported by [facility]. ID Date Data Source [id number] 07/22/2020 02:16:00 PM EST [facility] Name Value Range Interpretation Code Description Data Erna rce(s) Supporting Document(s) SARS coronavirus 2 RNA [facility] This lab was ordered by [facility] and reported by [facility]. ID Date Data Source [id number] 07/15/2020 09:00:00 AM EST [facility] Name Value Range Interpretation Code Description Data Erna rce(s) Supporting Document(s) SARS coronavirus 2 RNA [facility] This lab was ordered by [facility] and reported by [facility]. ID Date Data Source [id number] 07/08/2020 09:00:00 AM EST [facility] Name Value Range Interpretation Code Description Data Erna rce(s) Supporting Document(s) SARS coronavirus 2 RNA [facility] This lab was ordered by [facility] and reported by [facility]. ID Date Data Source [id number] 07/01/2020 03:00:00 PM EST [facility] Name Value Range Interpretation Code Description Data Erna rce(s) Supporting Document(s) SARS coronavirus 2 RNA [facility] This lab was ordered by [facility] and reported by [facility]. ID Date Data Source [id number] 06/24/2020 10:30:00 AM EST [facility] Name Value Range Interpretation Code Description Data Erna rce(s) Supporting Document(s) SARS coronavirus 2 RNA [facility] This lab was ordered by [facility] and reported by [facility]. ID Date Data Source [id number] 06/17/2020 10:30:00 AM EST [facility] Name Value Range Interpretation Code Description Data Erna rce(s) Supporting Document(s) SARS coronavirus 2 RNA [facility] This lab was ordered by [facility] and reported by [facility]. ID Date Data Source [id number] 06/10/2020 05:00:00 AM EST [facility] Name Value Range Interpretation Code Description Data Erna rce(s) Supporting Document(s) SARS coronavirus 2 RNA [facility] This lab was ordered by [facility] and reported by [facility]. ID Date Data Source [id number] 06/03/2020 07:30:00 AM EDT [facility] Name Value Range Interpretation Code Description Data Erna rce(s) Supporting Document(s) SARS coronavirus 2 RNA [facility] This lab was ordered by [facility] and reported by [facility]. Procedure Social History Code Duration Value Status Description Data Source(s ) Smoking 06/09/2021 12:00:00 AM EDT Never Smoker completed Never S moker eCW1 ([facility]) Smoking 11/26/2020 12:00:00 AM EDT Never Smoker completed Never S moker eCW1 ([facility]) Smoking 11/26/2020 12:00:00 AM EDT Never Smoker completed Never S moker eCW1 ([facility]) Smoking 11/19/2020 12:00:00 AM EDT Never Smoker completed Never S moker eCW1 ([facility]) Smoking 11/06/2020 12:00:00 AM EDT Never Smoker completed Never S moker eCW1 ([facility]) Smoking 11/06/2020 12:00:00 AM EDT Never Smoker completed Never S moker eCW1 ([facility]) Vital Signs ID Date Data Source UNK Name Value Range Interpretation Code Description Data Source(s) Body weight 154 [lb_av] 154 [lb_av] eCW1 ([facility]) Body height 62 [in_i] 62 [in_i] eCW1 ([facility]) Body mass index (BMI) [Ratio] 28.16 kg/m2 28.16 kg/m2 eCW1 ([facility]) Respiratory rate 18 /min 18 /min eCW1 ([facility]) Body temperature 96.6 [degF] 96.6 [degF] eCW1 ( [facility]) Systolic blood pressure 120 mm[Hg] 120 mm[Hg] e CW1 ([facility]) Diastolic blood pressure 64 mm[Hg] 64 mm[Hg] eCW1 ([facility]) Heart rate 81 /min 81 /min eCW1 ([facility]) Body mass index (BMI) [Ratio] 28.16 kg/m2 28.16 kg/m2 eCW1 ([facility]) Body weight 154 [lb_av] 154 [lb_av] eCW1 ([facility]) Body height 62 [in_i] 62 [in_i] eCW1 ([facility]) Systolic blood pressure 122 mm[Hg] 122 mm[Hg] e CW1 ([facility]) Diastolic blood pressure 72 mm[Hg] 72 mm[Hg] eCW1 ([facility]) Respiratory rate 18 /min 18 /min eCW1 ([facility]) Body temperature 96.8 [degF] 96.8 [degF] eCW1 ( [facility]) Heart rate 90 /min 90 /min eCW1 ([facility]) Body temperature 97.7 [degF] 97.7 [degF] eCW1 ( [facility]) Systolic blood pressure 120 mm[Hg] 120 mm[Hg] e CW1 ([facility]) Diastolic blood pressure 72 mm[Hg] 72 mm[Hg] eCW1 ([facility]) Body weight 155.8 [lb_av] 155.8 [lb_av] eCW1 ([facility]) Body height 62 [in_i] 62 [in_i] eCW1 ([facility]) Body mass index (BMI) [Ratio] 28.49 kg/m2 28.49 kg/m2 eCW1 ([facility]) Heart rate 94 /min 94 /min eCW1 ([facility]) Respiratory rate 20 /min 20 /min eCW1 ([facility]) Body weight 158 [lb_av] 158 [lb_av] eCW1 ([facility]) Body height 62 [in_i] 62 [in_i] eCW1 ([facility]) Body mass index (BMI) [Ratio] 28.90 kg/m2 28.90 kg/m2 eCW1 ([facility]) Heart rate 84 /min 84 /min eCW1 ([facility]) Respiratory rate 20 /min 20 /min eCW1 ([facility]) Body temperature 97.6 [degF] 97.6 [degF] eCW1 ( [facility]) Systolic blood pressure 122 mm[Hg] 122 mm[Hg] e CW1 ([facility]) Diastolic blood pressure 70 mm[Hg] 70 mm[Hg] eCW1 ([facility]) Body temperature 97.3 [degF] 97.3 [degF] MEDENT ([facility] ) Patient Treatment Plan of Care Planned Activity Planned Date Details Description Data Source (s) benzonatate 200 MG Oral Capsule 06/09/2021 12:00:00 AM EDT eCW1 ([facility]) valacyclovir 1000 MG Oral Tablet 11/06/2020 12:00:00 AM EDT eCW1 ([facility]) valacyclovir 1000 MG Oral Tablet 11/06/2020 12:00:00 AM EDT eCW1 ([facility])
--- OUTSIDE RECORDS SUMMARY | 2021-06-28 20:26 | CCD ---
Author Author [facility] Organization [facility] Address Unknown Phone Unavailable Care Team Providers Care Signal Tester Name Role Phone Ayala Lucio Unavailable PROBLEMS Type Condition ICD9-CM Code [id number] Code Onset Dates Condition S tatus W/U Status Risk SNOMED Code Notes Problem Sleep apnea, unspecified type G47.30 Active confirm ed 43626818 Problem Amenorrhea N91.2 Active confirmed 98380145 Problem Anxiety F41.9 Active confirmed 16869822 Problem Migraine without aura, not intractable, without status migrainosus G43.009 Active confirmed 874768419 Problem Gastroesophageal reflux disease without esophagitis K21.9 Active confirmed 352101670 Problem RLS (restless legs syndrome) G25.81 Active confirme d 36472410 ALLERGIES Allergen (clinical drug ingredient) Drug/Non Drug Allergy do cumented on EMR Reaction Allergy Type Onset Date Status azithromycin Zithromax([facility] Code:[address]-04) vomiting Drug Allerg y Active Grape juice Grape Juice Vomiting Non Drug Allergy Active ENCOUNTERS from 1991 to 2021-06-12 Encounter Location Date Provider Diagnosis [address] [phone] [place] [address] Jun, Ayala Yasmendoza Viral syndrome B34.9 IMMUNIZATIONS Vaccine Route Administration Date Status Hepatitis B Ped & Adol 0.5mL Engerix-B Unknown March 02, 1996 Administered Hepatitis B Ped & Adol 0.5mL Engerix-B Unknown Aug 20 997 Administered TDAP Unknown Apr 08, 2016 Administered Gardasil Unknown November 09, 2007 Administered Imm: IPV 0.5mL Polio Unknown 1991 Administere d Imm: IPV 0.5mL Polio Unknown March 02, 1993 Administere d Imm: IPV 0.5mL Polio Unknown February 01, 1996 Administere d Hepatitis B Ped & Adol 0.5mL Engerix-B Unknown February 01, 1996 Administered DTAP 0.5mL Infanrix Unknown 1991 Administered Gardasil Unknown January 12, 2008 Administered Gardasil Unknown May 17, 2008 Administered HIB 0.5mL Unknown November 19, 1992 Administered HIB 0.5mL Unknown January 02, 1992 Administered HIB 0.5mL Unknown 1991 Administered HIB 0.5mL Unknown 1991 Administered DTAP 0.5mL Infanrix Unknown November 09, 2007 Administered DTAP 0.5mL Infanrix Unknown March 02, 1993 Administered DTAP 0.5mL Infanrix Unknown January 02, 1992 Administered DTAP 0.5mL Infanrix Unknown 1991 Administered TD PED 0.5mL Tetanus Unknown November 09, 2007 Administere d Meningococcal Unknown November 09, 2007 Administered Hepatitis A Ped & Adol 0.5mL Havrix Unknown Apr 20 6 Administered Hepatitis A Ped & Adol 0.5mL Havrix Unknown October 19 07 Administered MMR 0.5mL Unknown November 19, 1992 Administered MMR 0.5mL Unknown February 01, 1996 Administered TD PED 0.5mL Tetanus Unknown Mar 22, 2005 Administere d Influenza 6mo & up Fluzone Unknown May 17, 2017 Other s Influenza 6mo & up Fluzone IM Intramuscular Jul 20, 2017 Admi nistered Imm: IPV 0.5mL Polio Unknown 1991 Administere d SOCIAL HISTORY Tobacco Use: Social History Observation Description Date Details (start date - stop date) Never Smoker Sex Assigned At : Social History Observation Description Sex Assigned At Unknown Education: Question Answer Notes Level of Education: High School Audit Question Answer Notes Total Score: 1 Interpretation: Alcohol Education Language: Question Answer Notes Languages spoken: Grenadian Worship: Question Answer Notes Worship 33 None Domestic Violence: Question Answer Notes Status: Single Sexual Hx: Question Answer Notes Had sex in the last 12 months (vaginal, oral, or anal)? No Have you ever had an STD? Yes Chlamydia? Yes Drug and Alcohol Question Answer Notes Total Score: 0 Interpretation: No problems reported Alcohol Screening: Question Answer Notes Did you have a drink containing alcohol in the past year? Ye s Points 1 Interpretation Negative How often did you have six or more drinks on one occas ion in the past year? Never (0 points) How many drinks did you have on a typica l day when you were drinking in the past year? 1 or 2 (0 points) How often did you have a drink containing alcohol in t he past year? Monthly or less (1 point) BMI Care Goal Follow-Up Question Answer Notes Above Normal BMI Follow-Up Dietary management educatio n, guidance, and counseling Tobacco Use: Question Answer Notes Are you a: never smoker REASON FOR REFERRAL No Information VITAL SIGNS Weight 154 lbs Jun, Height 62 in Jun, BMI 28.16 kg/m2 Jun, Heart Rate 81 /min Jun, Respiratory Rate 18 /min Jun, Temperature 96.6 degrees Fahrenheit Jun, Oximetry 99 Jun, Blood pressure systolic 120 mm Hg Jun, Blood pressure diastolic 64 mm Hg Jun, MEDICATIONS Medication SIG (Take, Route, Frequency, Duration) Notes Start Da te End Date Status valACYclovir HCl 1 GM 2 tablets bid x 1 day as nee ded for cold sores Orally bid for 5 days Nov, Active busPIRone HCl 10 MG 1 tablet Orally Twice a day for 90 days Active Mirena (52 MG) 20 MCG/24HR Intrauterine December, Active Vitamin D 1000 UNIT 1 tablet Orally Once a day Active Day Time Cold/Flu Relief 10-5-325 MG 2 capsules as needed Orally every 4 hrs Active Mucinex 600 MG 1 tablet as needed Orally every 12 hrs Active Pantoprazole Sodium 40 MG 1 tablet Orally Once a day for 90 days Oct, Active Benzonatate 200 MG 1 capsule Orally Three times a day for 10 day (s) Jun, Active Night Time Cold Medicine 60-12.5-30-1000 MG/30ML as directed Orally Active Gabapentin 300 MG 1 capsule Orally Daily for 90 days Active Naratriptan HCl 2.5 MG 1 tablet as needed one time Orally Once a day Active PROCEDURES No Information RESULTS Component Value Reference Range SHY WHITE AG (Point of Care) Reviewed date:06/09/2021 15:43:57 Interpretation: Performing Lab:[facility], [facility] INTER[facility] [address] [place] [address] , ,[place] [id number] SHY COVID ANTIGEN NEGATIVE NEGATIVE Coronavirus 2019 Nasopharygeal (Send Out ) COVID Reviewed date:06/11/2021 19:25:53 Interpretation: Performing Lab:[facility], [facility] [address] [facility] [address] , ,[facility] REASON FOR VISIT Cough, sore throat, nasal congestion MEDICAL (GENERAL) HISTORY Type Description Date Medical History Severe GERD s/p Walt Medical History Hx of hematochezia; normal EGD and colo [address] 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 Wood) 09/2010 Surgical History Laproscopic Walt Fundoplication 3 Surgical History wisdom tooth removal 12/2016 Surgical History Cholecystectomy 2019 Hospitalization History childbirth 08/16/2012 Goals Section No Information Health Concerns No Information MEDICAL EQUIPMENT No Information MENTAL STATUS No Information FUNCTIONAL STATUS No Information ASSESSMENTS Encounter Date Diagnosis Assessment Notes Treatment Notes Treatm ent Clinical Notes Jun, Viral syndrome (ICD-10 - B34.9) Despite negative rapid COVID19 test, I am still concerned for COVID19 symptoms based on symptoms and vaccination status. I recommended that she quarantine until her COVID19 PCR test is resulted. Note given to be off of work until next Friday 06/15. I counseled patient on supportive treatment including rest, intake of at least 1 quart of water per day, and use of humidifier or steam vaporizer. I recommended OTC analgesics such as acetaminophen or ibuprofen for pain or fever, lozenges and cough drops for sore or dry throat, and petroleium jelly for chapped nose or lips. I counseled patient that antibiotics do not cure viral infections, and that antibiotics can be harmful if given when not needed. I reviewed normal course of a viral URI, including changes in symptoms over time and expected length of illness, and when to return to clinic. I asked her to call if SOB worsens. I counseled her on risks of benzonatate and to keep this out of reach of children. PLAN OF TREATMENT Medication Medication Name Sig Start Date Stop Date Benzonatate 200 MG 1 capsule Orally Three times a day for 1 0 day(s) Jun, Treatment Notes Assessment Notes Clinical Notes Viral syndrome Despite negative rap id COVID19 test, I am still concerned for COVID19 symptoms based on symptoms and vaccination status. I recommended that she quarantine until her COVID19 PCR test is resulted. Note given to be off of work until next Friday 06/15.I counseled patient on supportive treatment including rest, intake of at least 1 quart of water per day, and use of humidifier or steam vaporizer. I recommended OTC analgesics such as acetaminophen or ibuprofen for pain or fever, lozenges and cough drops for sore or dry throat, and petroleium jelly for chapped nose or lips. I counseled patient that antibiotics do not cure viral infections, and that antibiotics can be harmful if given when not needed. I reviewed normal course of a viral URI, including changes in symptoms over time and expected length of illness, and when to return to clinic. I asked her to call if SOB worsens. I counseled her on risks of benzonatate and to keep this out of reach of children. Next Appt Details PRN Reason: Insurance Providers Payer Name Payer Address Payer Phone Insured Name Patient Relati onship to Insured Coverage Start Date Coverage End Date [facility] [address] [facility] [phone] MP [id number] self
--- OUTSIDE RECORDS SUMMARY | 2021-06-29 03:26 | CCD ---
Author Author [facility] Organization [facility] Address Unknown Phone Unavailable Care Team Providers Care Lumber Buyer Name Role Phone Dawood SAMPSON Unavailable Unavailable [...] is protected by Article 27-F of the [facility] Public Health law. If you continue you may have access to information: Regarding HIV / AIDS; Provided by facilities licensed or operated by the [facility] Office of Mental Health; or Provided by the [facility] Office for People With Developmental Disabilities. If such information is present, then the following [facility] mandated warning applies: This information [...] law may result in a fine or [place] health care facility sentence or both. A general authorization for the release of medical or other information is NOT sufficient authorization for further disc losure. Family History Family Member Name Family Member Gender Family Member Status Date o f Status Description Data Source(s) Unknown Unknown Problem MEDENT ([facility], [facility]) Encounters Encounter Providers Location Date Indications Data Source(s ) Outpatient [address] [facility] [id number] 06/09/2021 12:00:00 AM EDT eCW1 ([facility]) Unknown [address] [facility] [id number] 06/08/2021 12:00:00 AM EDT eCW1 ([facility]) Outpatient [address] [facility] [id number] 11/26/2020 12:00:00 AM EDT eCW1 ([facility]) Outpatient [address] [facility] [id number] 11/19/2020 12:00:00 AM EDT eCW1 ([facility]) Unknown [address] [facility] [id number] 11/07/2020 12:00:00 AM EDT eCW1 ([facility]) Outpatient [address] [facility] [id number] 11/06/2020 12:00:00 AM EDT eCW1 ([facility]) Unknown [address] [facility] [id number] 10/03/2020 12:00:00 AM EST eCW1 ([facility]) OFFICE OUTPATIENT VISIT 15 MINUTES Attender: ABRAHAM VERGARA Phys ical Therapy 09/30/2020 10:00:00 AM EST MEDENT ([facility]) Unknown [address] [facility] [place] [address] 2020 12:00:00 AM EST eCW1 ([facility]) Medications Medication Brand Name Start Date Product [...] {capsule} active B enzonatate 200 MG eCW1 ([facility]) valacyclovir 1000 MG Oral Tablet VALACYCLOVIR [...] EDT active Valacyclovir HCl 1 GM eCW1 ([facility]) valacyclovir 1000 MG Oral Tablet Valacyclovir HCl 1 GM Valac yclovir HCl 1 GM 11/06/2020 12:00:00 AM EDT active Valacyclovir HCl 1 GM eCW1 ([facility]) valacyclovir 1000 MG Oral Tablet Valacyclovir HCl 1 GM Valac yclovir HCl 1 GM 11/06/2020 12:00:00 AM EDT active Valacyclovir HCl 1 GM eCW1 ([facility]) valacyclovir 1000 MG Oral Tablet valACYclovir HCl 1 GM valAC Yclovir HCl 1 GM 11/06/2020 12:00:00 AM EDT active valACYclovir HCl 1 GM eCW1 ([facility]) valacyclovir 1000 MG Oral Tablet Valacyclovir HCl 1 GM Valac yclovir HCl 1 GM 11/06/2020 12:00:00 AM EDT active Valacyclovir HCl 1 GM eCW1 ([facility]) valacyclovir 1000 MG Oral Tablet valACYclovir HCl 1 GM valAC Yclovir HCl 1 GM 11/06/2020 12:00:00 AM EDT active eCW1 ([facility]) 500 mg 10/16/2019 12:00:00 AM EDT tablet 30 TAKE ONE TABLET BY MOUTH EVERY DAY TAKE ONE TABLET BY MOUTH EVERY DAY SOLD: 09/08/2020 [facility] Insurance Providers Payer name Policy type / Coverage type Policy ID Covered constitution party ID Covered constitution party's relationship to dwyer Policy Dwyer Plan Information MEDICAID [id number] SP [id number] BLUE CROSS GALINDO PLAN [id number] SP [id number] O BLUE [id number] SP [id number] BLUE CHOICE OPTIONS 7 [id number] Medicaid Dental S [id number] S [id number] [facility] Health Maintenance Organization ([facility]) [id number] Self [id number] [facility] Health Maintenance Organization (O) [id number] Self [id number] [facility] Health Maintenance Organization ([facility]) [id number] Self [id number] [facility] Health Maintenance Organization (HMO) [id number] Self [id number] [facility] Health Maintenance Organization (HMO) [id number] Self [id number] [facility] COMMUNITY PLAN [facility] [id number] SP [id number] ANSI-Medicaid [id number] [facility] COMMUNITY PLAN [facility] [id number] SP [id number] ANSI-Medicaid [id number] ANSI-Medicaid [id number] [facility] COMMUNITY PLAN [facility] [id number] SP [id number] [facility] [address] Commercial [id number] Self [id number] [facility]) [id number] S [id number] [facility] Health Maintenance Organization (HMO) [id number] Self [id number] ANSI-Medicaid [id number] ANSI-Medicaid [id number] ANSI-Medicaid [id number] ANSI-Medicaid [id number] BC/BS Family Health Plus Medigap Part B [id number] Self [id number] [place] Medigap Part B [id number] Self [id number] BC/BS Family Health Plus Medigap Part B [id number] Self [id number] [place] Medigap [place] [id number] Self [id number] BC/BS Family Health Plus Medigap Part B [id number] Self [id number] [place] Medigap [place] [id number] Self [id number] BC/BS Family Health Plus Medigap Part B [id number] Self [id number] [place] Medigap [place] [id number] Self [id number] BC/BS Family Health Plus Medigap Part B [id number] Self [id number] Medicaid [place] Medigap Part B [id number] Self [id number] Community Plan - [facility] Commercial [id number] Self [facility] COMMUNITY PLAN MCDO [id number] SP [id number] SELF PAY ONLY UNAVAILABLE SP UNAV AILABLE SELF PAY UNAVAILABLE SP UNAVAILA BLE [facility] Commercial [id number] Self SELFPAY 5 UNAVAILABLE 1 UNAVAILA BLE MEDICAID 3 [id number] [employer] [facility] O [id number] S [id number] D Managed Care [facility] P [id number] S [id number] MEDICAID W [id number] S [id number] MEDICAID W [id number] MEDICAID REF AMBULAT W [id number] S [id number] BLUE CHOICE OPTION O [id number] S [id number] MEDICAID W [id number] S [id number] HMO BLUE [id number] SP [id number] [facility] COMMUNITY PLAN MCDO [id number] SP [id number] [employer] COMMUNITY PLAN MCDO [id number] SP [id number] [employer] COMMUNITY PLAN MCDO [id number] SP [id number] [facility]) O [id number] S [id number] [facility] Essential Plan P UNAVAILABLE S UNAVAILABLE D [facility] CHP/Essential Plan P UNAVAILABLE S UNAVAILABLE [facility] [id number] SP [id number] SELF PAY ONLY [id number] SP [id number] ANSI-Medicaid [id number] ANSI-Not a Secondary Insurance [id number] SELF PAY ONLY [id number] SP [id number] [facility] [id number] SP [id number] Problems, Conditions, and Diagnoses Code Display Name Description Problem Type Effective Dates Data Source(s) N91.2 [id number] Amenorrhea Problem 11/06/2020 12:00:00 AM ED T eCW1 ([facility]) Surgeries/Procedures Procedure Description Date Indications Data Source(s) Medication: 1% Lidocaine with Epinephrine intradermal 11/19/2020 12:00:00 AM EDT eCW1 ([facility]) Medication: Triple Antibiotic packets (neomycin/bacitr acin/polymyxinb) ointment 11/19/2020 12:00:00 AM EDT eCW1 ([facility]) MRI Lower Extremity Any Joint 10/03/2020 12:00:[address] MEDENT ([facility] ) RADEX FOOT COMPLETE MINIMUM 3 VIEWS 09/30/2020 12:00:0 0 AM EST MEDENT ([facility] ) APPLICATION MODALITY 1/> AREAS HOT/COLD PACKS 05/27/20 12:00:00 AM EDT MEDENT ([facility] ) THERAPEUTIC PX 1/> AREAS EACH 15 MIN EXERCISES 020 12:00:00 AM EDT MEDENT ([facility] ) APPLICATION MODALITY 1/> AREAS HOT/COLD PACKS 05/21/20 12:00:00 AM EDT MEDENT ([facility] ) THERAPEUTIC PX 1/> AREAS EACH 15 MIN EXERCISES 020 12:00:00 AM EDT MEDENT ([facility] ) Physical Therapy Eval - Low Complexity 05/19/2020 12:0 0:00 AM EDT MEDENT ([facility] ) Results ID Date Data Source [id number] 06/15/2021 12:00:00 AM EST [facility] Name Value Range Interpretation Code Description Data Erna rce(s) Supporting Document(s) SARS coronavirus 2 Ag Negative [facility] This lab was ordered by [facility] and reported by [facility]. ID Date Data Source [id number] 06/09/2021 11:59:00 AM EDT [facility] Name Value Range Interpretation Code Description Data Erna rce(s) Supporting Document(s) SARS COVID ANTIGEN NEGATIVE [facility] This lab was ordered by JOVAN feldman nd reported by [facility]. ID Date Data Source Coronavirus 2019 Nasopharygeal (Send Out) COVID 06/09/2021 1 2:00:00 AM EDT eCW1 ([facility]) Name Value Range Interpretation Code Description Data Erna rce(s) Supporting Document(s) Coronavirus 2019 Nasophar ygeal (Send Out) COVID eCW1 ([facility]) ID Date Data Source SHY COVID AG (Point of Care) 06/09/2021 12:00:00 AM EDT eC W1 ([facility]) Name Value Range Interpretation Code Description Data Erna rce(s) Supporting Document(s) NEGATIVE NEGATIVE SHY COVID ANTIGEN eCW1 ([facility]) ID Date Data Source [id number] 04/20/2021 12:00:00 AM EDT [facility] Name Value Range Interpretation Code Description Data Erna rce(s) Supporting Document(s) SARS coronavirus 2 Ag Negative [facility] This lab was ordered by [facility] and reported by [facility]. ID Date Data Source [id number] 04/06/2021 12:00:00 AM EDT [facility] Name Value Range Interpretation Code Description Data Erna rce(s) Supporting Document(s) SARS coronavirus 2 Ag Negative [facility] This lab was ordered by [facility] and reported by [facility]. ID Date Data Source [id number] 03/30/2021 12:00:00 AM EDT [facility] Name Value Range Interpretation Code Description Data Erna rce(s) Supporting Document(s) SARS coronavirus 2 Ag Negative [facility] This lab was ordered by [facility] and reported by [facility]. ID Date Data Source [id number] 03/24/2021 12:00:00 AM EDT [facility] Name Value Range Interpretation Code Description Data Erna rce(s) Supporting Document(s) SARS coronavirus 2 Ag Negative [facility] This lab was ordered by [facility] and reported by [facility]. ID Date Data Source [id number] 02/24/2021 12:00:00 AM EDT [facility] Name Value Range Interpretation Code Description Data Erna rce(s) Supporting Document(s) SARS coronavirus 2 Ag Negative [facility] This lab was ordered by [facility] and reported by [facility]. ID Date Data Source [id number] 02/03/2021 12:00:00 AM EDT [facility] Name Value Range Interpretation Code Description Data Erna rce(s) Supporting Document(s) SARS coronavirus 2 Ag Negative [facility] This lab was ordered by [facility] and reported by [facility]. ID Date Data Source [id number] 01/28/2021 12:00:00 AM EDT [facility] Name Value Range Interpretation Code Description Data Erna rce(s) Supporting Document(s) SARS coronavirus 2 Ag Negative [facility] This lab was ordered by [facility] and reported by [facility]. ID Date Data Source [id number] 01/27/2021 02:04:00 PM EDT [facility] Name Value Range Interpretation Code Description Data Erna rce(s) Supporting Document(s) SARS-CoV-2 (COVID-19) RNA [Presence] in Respiratory specimen by REX with probe detection Not Detected [facility] This lab was ordered by [facility] and reported by [employer] ID Date Data Source [id number] 01/22/2021 12:00:00 AM EDT [facility] Name Value Range Interpretation Code Description Data Erna rce(s) Supporting Document(s) SARS coronavirus 2 Ag Negative [facility] This lab was ordered by [facility] and reported by [facility]. ID Date Data Source [id number] 01/20/2021 08:16:00 AM EDT [facility] Name Value Range Interpretation Code Description Data Erna rce(s) Supporting Document(s) SARS-CoV-2 (COVID-19) RNA [Presence] in Respiratory specimen by REX with probe detection Not Detected [facility] This lab was ordered by [facility] and reported by [facility] ID Date Data Source [id number] 01/13/2021 08:59:00 AM EDT [facility] Name Value Range Interpretation Code Description Data Erna rce(s) Supporting Document(s) SARS-CoV-2 (COVID-19) RNA [Presence] in Respiratory specimen by REX with probe detection Not Detected [facility] This lab was ordered by [facility] and reported by [facility] ID Date Data Source [id number] 01/06/2021 09:19:00 AM EDT [facility] Name Value Range Interpretation Code Description Data Erna rce(s) Supporting Document(s) SARS-CoV-2 (COVID-19) RNA [Presence] in Respiratory specimen by REX with probe detection Not Detected [facility] This lab was ordered by [facility] and reported by [employer] ID Date Data Source [id number] 12/30/2020 08:14:00 AM EDT [facility] Name Value Range Interpretation Code Description Data Erna rce(s) Supporting Document(s) SARS-CoV-2 (COVID-19) RNA [Presence] in Respiratory specimen by REX with probe detection Not Detected [facility] This lab was ordered by [facility] and reported by [facility] ID Date Data Source [id number] 12/26/2020 12:00:00 AM EDT [facility] Name Value Range Interpretation Code Description Data Erna rce(s) Supporting Document(s) SARS coronavirus 2 Ag Negative [facility] This lab was ordered by [facility] and reported by [facility]. ID Date Data Source [id number] 12/23/2020 08:31:00 AM EDT [facility] Name Value Range Interpretation Code Description Data Erna rce(s) Supporting Document(s) SARS-CoV-2 (COVID-19) RNA [Presence] in Respiratory specimen by REX with probe detection Not Detected [facility] This lab was ordered by [facility] and reported by [facility] ID Date Data Source [id number] 12/19/2020 12:00:00 AM EDT [facility] Name Value Range Interpretation Code Description Data Erna rce(s) Supporting Document(s) SARS coronavirus 2 Ag Negative [facility] This lab was ordered by [facility] and reported by [facility]. ID Date Data Source [id number] 12/16/2020 01:38:00 PM EDT [facility] Name Value Range Interpretation Code Description Data Erna rce(s) Supporting Document(s) SARS-CoV-2 (COVID-19) RNA [Presence] in Respiratory specimen by REX with probe detection Not Detected [facility] This lab was ordered by [facility] and reported by [employer] ID Date Data Source [id number] 12/12/2020 12:00:00 AM EDT [facility] Name Value Range Interpretation Code Description Data Erna rce(s) Supporting Document(s) SARS coronavirus 2 Ag Negative [facility] This lab was ordered by [facility] and reported by [facility]. ID Date Data Source [id number] 12/11/2020 09:00:00 AM EDT [facility] Name Value Range Interpretation Code Description Data Erna rce(s) Supporting Document(s) SARS-CoV-2 (COVID-19) RNA [Presence] in Respiratory specimen by REX with probe detection Not Detected [facility] This lab was ordered by [facility] and reported by [employer] ID Date Data Source [id number] 12/02/2020 12:51:00 PM EDT [facility] Name Value Range Interpretation Code Description Data Erna rce(s) Supporting Document(s) SARS-CoV-2 (COVID-19) RNA [Presence] in Respiratory specimen by REX with probe detection Not Detected [facility] This lab was ordered by [facility] and reported by [employer] [facility] [employer] ID Date Data Source [id number] 11/25/2020 11:54:00 AM EDT [facility] Name Value Range Interpretation Code Description Data Erna rce(s) Supporting Document(s) SARS-CoV-2 (COVID-19) RNA [Presence] in Respiratory specimen by REX with probe detection Not Detected [facility] This lab was ordered by [facility] and reported by [employer] ID Date Data Source [id number] 11/18/2020 06:00:00 AM EDT [facility] Name Value Range Interpretation Code Description Data Erna rce(s) Supporting Document(s) SARS-CoV-2 (COVID-19) RNA [Presence] in Respiratory specimen by REX with probe detection Not Detected [facility] This lab was ordered by [facility] and reported by [employer] ID Date Data Source [id number] 11/11/2020 10:05:00 AM EDT [facility] Name Value Range Interpretation Code Description Data Erna rce(s) Supporting Document(s) SARS-CoV-2 (COVID-19) RNA [Presence] in Respiratory specimen by REX with probe detection Not Detected [facility] This lab was ordered by [facility] and reported by [facility] ID Date Data Source [id number] 11/04/2020 03:10:00 PM EDT [facility] Name Value Range Interpretation Code Description Data Erna rce(s) Supporting Document(s) SARS-CoV-2 (COVID-19) RNA [Presence] in Respiratory specimen by REX with probe detection Not Detected [facility] This lab was ordered by [facility] and reported by [employer] ID Date Data Source [id number] 11/04/2020 12:00:00 AM EDT [facility] Name Value Range Interpretation Code Description Data Erna rce(s) Supporting Document(s) SARS coronavirus 2 Ag Negative [facility] This lab was ordered by [facility] and reported by [facility]. ID Date Data Source [id number] 10/28/2020 07:02:00 AM EDT [facility] Name Value Range Interpretation Code Description Data Erna rce(s) Supporting Document(s) SARS coronavirus 2 RNA Not Detected [facility] This lab was ordered by [facility] and reported by [facility]. ID Date Data Source [id number] 10/24/2020 12:00:00 AM EDT [facility] Name Value Range Interpretation Code Description Data Erna rce(s) Supporting Document(s) SARS coronavirus 2 Ag Negative [facility] This lab was ordered by [facility] and reported by [facility]. ID Date Data Source [id number] 10/21/2020 12:00:00 PM EDT [facility] Name Value Range Interpretation Code Description Data Erna rce(s) Supporting Document(s) SARS coronavirus 2 RNA Not Detected [facility] This lab was ordered by [facility] and reported by [facility]. ID Date Data Source [id number] 10/14/2020 08:30:00 AM EST [facility] Name Value Range Interpretation Code Description Data Erna rce(s) Supporting Document(s) SARS coronavirus 2 RNA Not Detected [facility] This lab was ordered by [facility] and reported by [facility]. ID Date Data Source [id number] 10/07/2020 03:00:00 PM EST [facility] Name Value Range Interpretation Code Description Data Erna rce(s) Supporting Document(s) SARS coronavirus 2 RNA Not Detected [facility] This lab was ordered by [facility] and reported by [facility]. ID Date Data Source [id number] 09/30/2020 02:30:00 PM EST [facility] Name Value Range Interpretation Code Description Data Erna rce(s) Supporting Document(s) SARS coronavirus 2 RNA Not Detected [facility] This lab was ordered by [facility] and reported by [facility]. ID Date Data Source [id number] 09/26/2020 12:00:00 AM EST [facility] Name Value Range Interpretation Code Description Data Erna rce(s) Supporting Document(s) SARS coronavirus 2 Ag Negative [facility] This lab was ordered by [facility] and reported by [facility]. ID Date Data Source [id number] 09/23/2020 12:50:00 PM EST [facility] Name Value Range Interpretation Code Description Data Erna rce(s) Supporting Document(s) SARS coronavirus 2 RNA Not Detected [facility] This lab was ordered by [facility] and reported by [facility]. ID Date Data Source [id number] 09/16/2020 06:24:00 AM EST [facility] Name Value Range Interpretation Code Description Data Erna rce(s) Supporting Document(s) SARS coronavirus 2 RNA Not Detected [facility] This lab was ordered by [facility] and reported by [facility]. ID Date Data Source [id number] 09/09/2020 12:55:00 PM EST [facility] Name Value Range Interpretation Code Description Data Erna rce(s) Supporting Document(s) SARS coronavirus 2 RNA Not Detected [facility] This lab was ordered by [facility] and reported by [facility]. ID Date Data Source [id number] 09/02/2020 02:00:00 PM EST [facility] Name Value Range Interpretation Code Description Data Erna rce(s) Supporting Document(s) SARS coronavirus 2 RNA Not Detected [facility] This lab was ordered by [facility] and reported by [facility]. ID Date Data Source [id number] 08/26/2020 02:40:00 PM EST [facility] Name Value Range Interpretation Code Description Data Erna rce(s) Supporting Document(s) SARS coronavirus 2 RNA Not Detected [facility] This lab was ordered by [facility] and reported by [facility]. ID Date Data Source [id number] 08/19/2020 03:00:00 PM EST [facility] Name Value Range Interpretation Code Description Data Erna rce(s) Supporting Document(s) SARS coronavirus 2 RNA Not Detected [facility] This lab was ordered by [facility] and reported by [facility]. ID Date Data Source [id number] 08/12/2020 08:00:00 AM EST [facility] Name Value Range Interpretation Code Description Data Erna rce(s) Supporting Document(s) SARS coronavirus 2 RNA Not Detected [facility] This lab was ordered by [facility] and reported by [facility]. ID Date Data Source [id number] 08/05/2020 03:05:00 PM EST [facility] Name Value Range Interpretation Code Description Data Erna rce(s) Supporting Document(s) SARS coronavirus 2 RNA [facility] This lab was ordered by [facility] and reported by [facility]. ID Date Data Source [id number] 07/29/2020 12:00:00 PM EST [facility] Name Value Range Interpretation Code Description Data Erna rce(s) Supporting Document(s) SARS coronavirus 2 RNA [facility] This lab was ordered by [facility] and reported by [facility]. ID Date Data Source [id number] 07/22/2020 02:16:00 PM EST [facility] Name Value Range Interpretation Code Description Data Erna rce(s) Supporting Document(s) SARS coronavirus 2 RNA [facility] This lab was ordered by [facility] and reported by [facility]. ID Date Data Source [id number] 07/15/2020 09:00:00 AM EST [facility] Name Value Range Interpretation Code Description Data Erna rce(s) Supporting Document(s) SARS coronavirus 2 RNA [facility] This lab was ordered by [facility] and reported by [facility]. ID Date Data Source [id number] 07/08/2020 09:00:00 AM EST [facility] Name Value Range Interpretation Code Description Data Erna rce(s) Supporting Document(s) SARS coronavirus 2 RNA [facility] This lab was ordered by [facility] and reported by [facility]. ID Date Data Source [id number] 07/01/2020 03:00:00 PM EST [facility] Name Value Range Interpretation Code Description Data Erna rce(s) Supporting Document(s) SARS coronavirus 2 RNA [facility] This lab was ordered by [facility] and reported by [facility]. ID Date Data Source [id number] 06/24/2020 10:30:00 AM EST [facility] Name Value Range Interpretation Code Description Data Erna rce(s) Supporting Document(s) SARS coronavirus 2 RNA [facility] This lab was ordered by [facility] and reported by [facility]. ID Date Data Source [id number] 06/17/2020 10:30:00 AM EST [facility] Name Value Range Interpretation Code Description Data Erna rce(s) Supporting Document(s) SARS coronavirus 2 RNA [facility] This lab was ordered by [facility] and reported by [facility]. ID Date Data Source [id number] 06/10/2020 05:00:00 AM EST [facility] Name Value Range Interpretation Code Description Data Erna rce(s) Supporting Document(s) SARS coronavirus 2 RNA [facility] This lab was ordered by [facility] and reported by [facility]. ID Date Data Source [id number] 06/03/2020 07:30:00 AM EDT [facility] Name Value Range Interpretation Code Description Data Erna rce(s) Supporting Document(s) SARS coronavirus 2 RNA [facility] This lab was ordered by [facility] and reported by [facility]. Procedure Social History Code Duration Value Status Description Data Source(s ) Smoking 06/09/2021 12:00:00 AM EDT Never Smoker completed Never S moker eCW1 ([facility]) Smoking 11/26/2020 12:00:00 AM EDT Never Smoker completed Never S moker eCW1 ([facility]) Smoking 11/26/2020 12:00:00 AM EDT Never Smoker completed Never S moker eCW1 ([facility]) Smoking 11/19/2020 12:00:00 AM EDT Never Smoker completed Never S moker eCW1 ([facility]) Smoking 11/06/2020 12:00:00 AM EDT Never Smoker completed Never S moker eCW1 ([facility]) Smoking 11/06/2020 12:00:00 AM EDT Never Smoker completed Never S moker eCW1 ([facility]) Vital Signs ID Date Data Source UNK Name Value Range Interpretation Code Description Data Source(s) Body weight 154 [lb_av] 154 [lb_av] eCW1 ([facility]) Heart rate 81 /min 81 /min eCW1 ([facility]) Respiratory rate 18 /min 18 /min eCW1 ([facility]) Body height 62 [in_i] 62 [in_i] eCW1 ([facility]) Body temperature 96.6 [degF] 96.6 [degF] eCW1 ( [facility]) Systolic blood pressure 120 mm[Hg] 120 mm[Hg] e CW1 ([facility]) Diastolic blood pressure 64 mm[Hg] 64 mm[Hg] eCW1 ([facility]) Body mass index (BMI) [Ratio] 28.16 kg/m2 28.16 kg/m2 W1 ([facility]) Body height 62 [in_i] 62 [in_i] eCW1 ([facility]) Body mass index (BMI) [Ratio] 28.16 kg/m2 28.16 kg/m2 eCW1 ([facility]) Body weight 154 [lb_av] 154 [lb_av] eCW1 ([facility]) Heart rate 90 /min 90 /min eCW1 ([facility]) Systolic blood pressure 122 mm[Hg] 122 mm[Hg] e CW1 ([facility]) Diastolic blood pressure 72 mm[Hg] 72 mm[Hg] eCW1 ([facility]) Respiratory rate 18 /min 18 /min eCW1 ([facility]) Body temperature 96.8 [degF] 96.8 [degF] eCW1 ( [facility]) Body weight 155.8 [lb_av] 155.8 [lb_av] eCW1 ([facility]) Body temperature 97.7 [degF] 97.7 [degF] eCW1 ( [facility]) Systolic blood pressure 120 mm[Hg] 120 mm[Hg] e CW1 ([facility]) Body height 62 [in_i] 62 [in_i] eCW1 ([facility]) Diastolic blood pressure 72 mm[Hg] 72 mm[Hg] eCW1 ([facility]) Body mass index (BMI) [Ratio] 28.49 kg/m2 28.49 kg/m2 eCW1 ([facility]) Heart rate 94 /min 94 /min eCW1 ([facility]) Respiratory rate 20 /min 20 /min eCW1 ([facility]) Body weight 158 [lb_av] 158 [lb_av] eCW1 ([facility]) Body height 62 [in_i] 62 [in_i] eCW1 ([facility]) Body mass index (BMI) [Ratio] 28.90 kg/m2 28.90 kg/m2 eCW1 ([facility]) Heart rate 84 /min 84 /min eCW1 ([facility]) Respiratory rate 20 /min 20 /min eCW1 ([facility]) Body temperature 97.6 [degF] 97.6 [degF] eCW1 ( [facility]) Systolic blood pressure 122 mm[Hg] 122 mm[Hg] e CW1 ([facility]) Diastolic blood pressure 70 mm[Hg] 70 mm[Hg] eCW1 ([facility]) Body temperature 97.3 [degF] 97.3 [degF] [facility] ([facility] ) Patient Treatment Plan of Care Planned Activity Planned Date Details Description Data Source (s) benzonatate 200 MG Oral Capsule 06/09/2021 12:00:00 AM EDT eCW1 ([facility]) valacyclovir 1000 MG Oral Tablet 11/06/2020 12:00:00 AM EDT eCW1 ([facility]) valacyclovir 1000 MG Oral Tablet 11/06/2020 12:00:00 AM EDT eCW1 ([facility])
== END 2021-06-29 03:44 | disposition left against medical advice (07) ==
LOC: M ED 20:18
DX: Z53.21 Procedure and treatment not carried out due to patient leaving prior to being seen by health care provider (principal)

== ENCOUNTER 2022-02-23 19:08 | Emergency (ER) | payer OTHER ==
[~2022-02-23] VITALS: Ht 157.5 cm; Wt 67.3 kg
[~2022-02-23 19:08] MED LIST changes: -D31000TA2 PO; +VITA100093 PO
[2022-02-23] MEDS ORDERED: ONDANSETRON 4MG 2ML VIAL IV PRN (19:35)
[2022-02-23] MEDS ORDERED: IBUPROFEN 600MG TAB PO ONE (19:35)
[2022-02-23] MEDS ORDERED: NS 1,000 ML IV ONE (19:35)
[2022-02-23 20:00] LABS: BASO % 0.2 % (0.0-1.0); EOS % 0.6 % (0.0-3.0); HEMATOCRIT 34.1 % (36.0-47.0); HEMOGLOBIN 11.7 g/dl (12.0-15.5); LYMPH # 0.3 10^3/uL (1.5-5.0); LYMPH % 5.4 % (24.0-44.0); MEAN CORPUSCULAR HEMOGLOBIN 30.3 pg (27.0-33.0); MEAN CORPUSCULAR HGB CONC 34.3 g/dl (32.0-36.5); MEAN CORPUSCULAR VOLUME 88.3 fl (80.0-96.0); MONO # 0.5 10^3/uL (0.0-0.8); MONO % 8.6 % (2.0-8.0); NEUTROPHILS # 5.4 10^3/uL (1.5-8.5); PLATELET COUNT, AUTOMATED 135 10^3/uL (150-450); RED BLOOD COUNT 3.86 10^6/uL (4.00-5.40); WHITE BLOOD COUNT 6.3 10^3/uL (4.0-10.0)
[2022-02-23 20:46] LABS: ALBUMIN 3.9 GM/DL (3.2-5.2); ALT/SGPT 13 U/L (12-78); BILIRUBIN,DIRECT < 0.1 MG/DL (0.0-0.2); BILIRUBIN,TOTAL 0.4 MG/DL (0.2-1.0); BLOOD UREA NITROGEN 8 MG/DL (7-18); CARBON DIOXIDE LEVEL 20 MEQ/L (21-32); CHLORIDE LEVEL 111 MEQ/L (98-107); CREATININE FOR GFR 0.77 MG/DL (0.55-1.30); GLOMERULAR FILTRATION RATE > 60.0 (>60); GLUCOSE, FASTING 106 MG/DL (70-100); POTASSIUM SERUM 4.4 MEQ/L (3.5-5.1); SODIUM LEVEL 137 MEQ/L (136-145); THYROID STIMULATING HORMONE 0.929 uIU/ML (0.358-3.740); THYROXINE (T4) 8.7 UG/DL (4.5-12.0)
[2022-02-23] MEDS ORDERED: MAG SULF 1GM/100ML (MAG RUN) 1 GM in IV 1 EA IV ONE (21:05)
[2022-02-23] MEDS ORDERED: METOCLOPRAMIDE INJ 10MG/2ML VIAL (J2765 PER 1) IV ONE (21:05)
[2022-02-23 23:30] VITALS: BP 115/61
== END 2022-02-23 23:43 | disposition home or self-care (01) ==
LOC: EDBD 19:08 → M ED 19:08
DX: U07.1 COVID-19 (principal); K21.9 Gastro-esophageal reflux disease without esophagitis; Z87.442 Personal history of urinary calculi; F90.9 Attention-deficit hyperactivity disorder, unspecified type; Z88.1 Allergy status to other antibiotic agents; Z91.018 Allergy to other foods; Z79.899 Other long term (current) drug therapy
CPT/HCPCS: 70450; 71045; 80048; 80076; 83605; 84436; 84443; 85025; 87040; 87486; 87581; 87633; 87798; 93041; 94760; 96365; 96366; 96375; 99285; J2405; J2765; J3475

== ENCOUNTER → 2023-01-28 | Outpatient (REF) | payer OTHER ==
[~2023-01-28] MED LIST changes: +LIDO15SO PO; -LIDO2SOL17 PO
== END ==
LOC: M LAB REF 16:00
PROVIDERS: ATTEND Physician Assistant
DX: N89.8 Other specified noninflammatory disorders of vagina (principal)

== ENCOUNTER → 2023-02-17 | Outpatient (CLI) | payer OTHER | LOC: M PLAIMG 10:16 | PROVIDERS: ATTEND Physician Assistant | DX: R05.3 Chronic cough (principal) ==

== ENCOUNTER 2023-06-05 17:12 | Emergency (ER) | payer OTHER ==
[~2023-06-05] VITALS: Ht 157.5 cm; Wt 71.6 kg
[2023-06-05 18:23] LABS: BASO # 0.1 10^3/uL (0.0-0.2); BASO % 0.7 % (0.0-1.0); EOS # 0.1 10^3/uL (0.0-0.5); HEMATOCRIT 37.6 % (36.0-47.0); HEMOGLOBIN 12.7 g/dl (12.0-15.5); LYMPH # 2.8 10^3/uL (1.5-5.0); LYMPH % 39.1 % (24.0-44.0); MEAN CORPUSCULAR HEMOGLOBIN 29.7 pg (27.0-33.0); MEAN CORPUSCULAR HGB CONC 33.8 g/dl (32.0-36.5); MEAN CORPUSCULAR VOLUME 88.1 fl (80.0-96.0); MONO # 0.8 10^3/uL (0.0-0.8); MONO % 10.5 % (2.0-8.0); NEUTROPHILS # 3.4 10^3/uL (1.5-8.5); NEUTROPHILS % 47.6 % (36.0-66.0); PLATELET COUNT, AUTOMATED 200 10^3/uL (150-450); RED BLOOD COUNT 4.27 10^6/uL (4.00-5.40); WHITE BLOOD COUNT 7.2 10^3/uL (4.0-10.0)
[2023-06-05] MEDS ORDERED: ONDANSETRON 4MG 2ML VIAL IV ONE (18:25)
[2023-06-05] MEDS ORDERED: KETOROLAC 30 MG/ML 1ML VIAL IV ONE ×2 (18:25→19:45)
[2023-06-05 18:48] LABS: LIPASE 39 U/L (12-53)
[2023-06-05 18:50] LABS: ALBUMIN 4.4 G/DL (3.2-5.2); ALKALINE PHOSPHATASE 79 U/L (46-116); ALT/SGPT < 9 U/L (7.0-40); AST/SGOT 12 U/L (<34); BILIRUBIN,DIRECT 0.2 MG/DL (<0.4); BILIRUBIN,TOTAL 0.6 MG/DL (0.3-1.2); TOTAL PROTEIN 7.3 G/DL (5.7-8.2)
[2023-06-05] MEDS ORDERED: NS 1,000 ML IV ONE (19:45)
[2023-06-05] MEDS ORDERED: METOCLOPRAMIDE INJ 10MG/2ML VIAL IV ONE (19:45)
[2023-06-05] MEDS ORDERED: TAMSULOSIN 0.4 MG CAP PO ONE (20:15)
[2023-06-05] MEDS ORDERED: cefTRIAXone SOD 1 GM in D5W MINI-BAG PLUS 50 ML IV ONE (20:15)
[2023-06-05] MEDS ORDERED: FLOM0.4C39 PO (20:18)
[2023-06-05] MEDS ORDERED: HYDR-3713 PO (20:18)
[2023-06-05] MEDS ORDERED: KETO10TAB PO (20:18)
[2023-06-05] MEDS ORDERED: ONDA4TAB6 PO (20:18)
[2023-06-05 21:55] VITALS: BP 123/68; TEMP 100.2
[2023-06-05] MEDS ORDERED: MORPHINE 2 MG/ML 1ML VIAL IV ONE (22:00)
[2023-06-05 22:21] VITALS: O2SAT 100
== END 2023-06-05 22:34 | disposition home or self-care (01) ==
LOC: M ED 17:12
DX: N20.1 Calculus of ureter (principal); K21.9 Gastro-esophageal reflux disease without esophagitis; F41.9 Anxiety disorder, unspecified; F32.A Depression, unspecified; G47.33 Obstructive sleep apnea (adult) (pediatric); G40.909 Epilepsy, unspecified, not intractable, without status epilepticus; Z87.442 Personal history of urinary calculi; Z88.1 Allergy status to other antibiotic agents; Z91.018 Allergy to other foods; Z79.891 Long term (current) use of opiate analgesic; Z79.83 Long term (current) use of bisphosphonates; Z79.899 Other long term (current) drug therapy
CPT/HCPCS: 74176; 80047; 80076; 81001; 83690; 84702; 85025; 87086; 96361; 96365; 96375; 99284; J0696; J1885; J2405; J2765

== ENCOUNTER → 2023-09-28 | Outpatient (REF) | payer OTHER ==
[~2023-09-28] MED LIST changes: +FLOM0.4C39 PO; +HYDR-3713 PO; +KETO10TAB PO; +ONDA4TAB6 PO
== END ==
LOC: M SFHCPLAZ 13:09
PROVIDERS: ATTEND Nurse Practitioner Adult Health
DX: R09.89 Other specified symptoms and signs involving the circulatory and respiratory systems (principal)

== ENCOUNTER → 2023-11-16 | Outpatient (CLI) | payer OTHER ==
[~2023-11-16] MED LIST changes: -LIDO15SO PO; +LIDO15SO8 PO
== END ==
LOC: M PLALAB 08:31
PROVIDERS: ATTEND Physician Assistant
DX: R05.3 Chronic cough (principal); J84.89 Other specified interstitial pulmonary diseases

== ENCOUNTER 2024-04-02 13:24 | Emergency (ER) | payer OTHER ==
[~2024-04-02] VITALS: Ht 157.5 cm; Wt 75.4 kg
[~2024-04-02 13:24] MED LIST changes: -DEPO150I12 IM; -RIZA10TA58 PO
[2024-04-02] MEDS ORDERED: RIZA10TA58 PO (13:38)
[2024-04-02] MEDS ORDERED: DEPO150I12 IM (13:38)
[2024-04-02 15:00] LABS: BASO % 0.4 % (0.0-1.0); EOS # 0.1 10^3/uL (0.0-0.5); EOS % 1.2 % (0.0-3.0); HEMATOCRIT 39.5 % (36.0-47.0); HEMOGLOBIN 13.5 g/dl (12.0-15.5); LYMPH # 2.6 10^3/uL (1.5-5.0); LYMPH % 34.1 % (24.0-44.0); MEAN CORPUSCULAR HEMOGLOBIN 30.5 pg (27.0-33.0); MEAN CORPUSCULAR HGB CONC 34.2 g/dl (32.0-36.5); MEAN CORPUSCULAR VOLUME 89.2 fl (80.0-96.0); MONO # 0.5 10^3/uL (0.0-0.8); MONO % 7.1 % (2.0-8.0); NEUTROPHILS # 4.3 10^3/uL (1.5-8.5); NEUTROPHILS % 56.9 % (36.0-66.0); PLATELET COUNT, AUTOMATED 214 10^3/uL (150-450); RED BLOOD COUNT 4.43 10^6/uL (4.00-5.40); WHITE BLOOD COUNT 7.6 10^3/uL (4.0-10.0)
[2024-04-02] MEDS: NS 1,000 ML IV ONE (15:13)
[2024-04-02] MEDS: ONDANSETRON 4MG 2ML VIAL IV ONE (15:13)
[2024-04-02] MEDS: KETOROLAC 30 MG/ML 1ML VIAL IV ONE (15:13)
[2024-04-02 15:28] LABS: LIPASE 35 U/L (12-53)
[2024-04-02 15:31] LABS: ALBUMIN 4.4 G/DL (3.2-5.2); ALKALINE PHOSPHATASE 99 U/L (46-116); ALT/SGPT 18 U/L (7.0-40); AST/SGOT 14 U/L (<34); BILIRUBIN,DIRECT 0.3 MG/DL (<0.4); BILIRUBIN,TOTAL 0.6 MG/DL (0.3-1.2); TOTAL PROTEIN 7.6 G/DL (5.7-8.2)
[2024-04-02 15:47] LABS: HCG, SERUM QUALITATIVE NEGATIVE (NEGATIVE)
[2024-04-02] MEDS: MORPHINE 2 MG/ML 1ML VIAL IV ONE (16:55)
[2024-04-02 17:48] VITALS: BP 126/64; TEMP 98.1; O2SAT 100
[2024-04-02] MEDS: MORPHINE 4 MG/ML 1ML VIAL IV ONE (18:15)
[2024-04-02] MEDS ORDERED: FLOM0.4C39 PO (20:03)
[2024-04-02] MEDS ORDERED: ONDA-282 PO (20:03)
[2024-04-02] MEDS ORDERED: HYDR-3713 PO (20:03)
[2024-04-02] MEDS ORDERED: KETO10TAB PO (20:03)
[2024-04-02] MEDS: TAMSULOSIN 0.4 MG CAP PO ONE (20:17)
[2024-04-02] MEDS: NORCO 5/325MG TABLET (HOME DOSE PACK) PO ONE (20:17)
== END 2024-04-02 20:33 | disposition home or self-care (01) ==
LOC: M ED 13:24
DX: N20.1 Calculus of ureter (principal); K21.9 Gastro-esophageal reflux disease without esophagitis; G43.909 Migraine, unspecified, not intractable, without status migrainosus; F41.9 Anxiety disorder, unspecified; Z88.1 Allergy status to other antibiotic agents; Z91.018 Allergy to other foods; Z79.83 Long term (current) use of bisphosphonates; Z79.899 Other long term (current) drug therapy; Z87.442 Personal history of urinary calculi
CPT/HCPCS: 74018; 74176; 76775; 76882; 80047; 80076; 81001; 83690; 84703; 85025; 96374; 96375; 96376; 99284; J1885; J2405

== ENCOUNTER → 2024-04-02 | Outpatient (CLI) | payer OTHER ==
[~2024-04-02] MED LIST changes: +DEPO150I12 IM; +ONDA-282 PO; -ONDA4TAB6 PO; +RIZA10TA58 PO
== END ==
LOC: M WHC 06:47
PROVIDERS: ATTEND Physician Assistant
DX: R22.31 Localized swelling, mass and lump, right upper limb (principal)

== ENCOUNTER → 2024-04-13 | Outpatient (CLI) | payer OTHER ==
[~2024-04-13] MED LIST changes: +DEPO150I12 IM; +RIZA10TA58 PO
[2024-04-13 09:11] LABS: BASO % 0.4 % (0.0-1.0); EOS # 0.1 10^3/uL (0.0-0.5); EOS % 1.5 % (0.0-3.0); HEMATOCRIT 38.7 % (36.0-47.0); HEMOGLOBIN 12.9 g/dl (12.0-15.5); LYMPH # 2.1 10^3/uL (1.5-5.0); LYMPH % 31.2 % (24.0-44.0); MEAN CORPUSCULAR HEMOGLOBIN 29.9 pg (27.0-33.0); MEAN CORPUSCULAR HGB CONC 33.3 g/dl (32.0-36.5); MEAN CORPUSCULAR VOLUME 89.8 fl (80.0-96.0); MONO # 0.6 10^3/uL (0.0-0.8); MONO % 8.6 % (2.0-8.0); NEUTROPHILS # 3.9 10^3/uL (1.5-8.5); NEUTROPHILS % 57.9 % (36.0-66.0); PLATELET COUNT, AUTOMATED 197 10^3/uL (150-450); RED BLOOD COUNT 4.31 10^6/uL (4.00-5.40); WHITE BLOOD COUNT 6.7 10^3/uL (4.0-10.0)
[2024-04-13 09:22] LABS: HEMOGLOBIN A1c 5.2 % (4.0-6.0)
[2024-04-13 09:34] LABS: ALBUMIN 4.1 G/DL (3.2-5.2); ALKALINE PHOSPHATASE 97 U/L (46-116); ALT/SGPT 20 U/L (7.0-40); AST/SGOT 9 U/L (<34); BILIRUBIN,TOTAL 0.4 MG/DL (0.3-1.2); BLOOD UREA NITROGEN 10 MG/DL (9-23); CALCIUM LEVEL 9.4 MG/DL (8.5-10.1); CARBON DIOXIDE LEVEL 25 MMOL/L (20-31); CHLORIDE LEVEL 107 MMOL/L (98-107); CHOLESTEROL LEVEL 100 MG/DL (<200); CHOLESTEROL RISK RATIO 3.15 (<5); CREATININE FOR GFR 0.83 MG/DL (0.55-1.30); GLOMERULAR FILTRATION RATE > 60.0 (>60); GLUCOSE, FASTING 106 MG/DL (60-100); HDL CHOLESTEROL 31.7 MG/DL (>40); LDL CHOLESTEROL 58.1 MG/DL (<100); NON-HDL-C 68.3 MG/DL; POTASSIUM SERUM 4.1 MMOL/L (3.5-5.1); SODIUM LEVEL 138 MMOL/L (136-145); TOTAL PROTEIN 7.1 G/DL (5.7-8.2); TRIGLYCERIDES LEVEL 51 MG/DL (<150)
[2024-04-13 09:35] LABS: THYROID STIMULATING HORMONE 2.061 uIU/ML (0.55-4.78)
[2024-04-13 09:36] LABS: TOTAL 25(OH) VITAMIN D 38.2 NG/ML (20.0-100.0)
== END ==
LOC: M LAB 08:18
PROVIDERS: ATTEND Physician Assistant
DX: Z00.00 Encounter for general adult medical examination without abnormal findings (principal); F41.9 Anxiety disorder, unspecified; G43.009 Migraine without aura, not intractable, without status migrainosus; K21.9 Gastro-esophageal reflux disease without esophagitis; R63.5 Abnormal weight gain; Z13.220 Encounter for screening for lipoid disorders

== ENCOUNTER → 2024-07-16 | Outpatient (REF) | payer OTHER ==
[~2024-07-16] MED LIST changes: +GABA-1172; +GABA-1172 PO; -GABA-282; -GABA-282 PO
[2024-07-20 14:07] LABS: HPV APTIMA Not Detected (Not Detected)
== END ==
LOC: M SFHCPLAZ 09:02
PROVIDERS: ATTEND Family Medicine
DX: Z12.4 Encounter for screening for malignant neoplasm of cervix (principal)

== ENCOUNTER → 2024-08-29 | Outpatient (REF) | payer OTHER | LOC: M SFHCDERM 16:51 | PROVIDERS: ATTEND Physician Assistant | DX: D23.5 Other benign neoplasm of skin of trunk (principal) ==

== ENCOUNTER → 2024-12-27 | Outpatient (CLI) | payer OTHER ==
[~2024-12-27] MED LIST changes: -FLOM0.4C39 PO; +TAMS-18 PO
[2024-12-27 16:10] LABS: BASO % 0.5 % (0.0-1.0); EOS # 0.1 10^3/uL (0.0-0.5); EOS % 0.9 % (0.0-3.0); HEMATOCRIT 38.6 % (36.0-47.0); HEMOGLOBIN 12.7 g/dl (12.0-15.5); LYMPH # 2.6 10^3/uL (1.5-5.0); LYMPH % 33.1 % (24.0-44.0); MEAN CORPUSCULAR HEMOGLOBIN 29.5 pg (27.0-33.0); MEAN CORPUSCULAR HGB CONC 32.9 g/dl (32.0-36.5); MEAN CORPUSCULAR VOLUME 89.6 fl (80.0-96.0); MONO # 0.7 10^3/uL (0.0-0.8); MONO % 9.3 % (2.0-8.0); NEUTROPHILS # 4.3 10^3/uL (1.5-8.5); NEUTROPHILS % 55.9 % (36.0-66.0); PLATELET COUNT, AUTOMATED 216 10^3/uL (150-450); RED BLOOD COUNT 4.31 10^6/uL (4.00-5.40); WHITE BLOOD COUNT 7.7 10^3/uL (4.0-10.0)
[2024-12-27 16:52] LABS: ALBUMIN 4.3 G/DL (3.2-5.2); ALKALINE PHOSPHATASE 85 U/L (35-104); ALT/SGPT 52 U/L (7.0-40); AST/SGOT 23 U/L (<34); BILIRUBIN,TOTAL 0.6 MG/DL (0.3-1.2); BLOOD UREA NITROGEN 8 MG/DL (9-23); CALCIUM LEVEL 9.6 MG/DL (8.5-10.1); CARBON DIOXIDE LEVEL 26 MMOL/L (20-31); CHLORIDE LEVEL 105 MMOL/L (98-107); CHOLESTEROL LEVEL 108 MG/DL (<200); CHOLESTEROL RISK RATIO 3.13 (<5); CK-MB VALUE MASS < 1.0 NG/ML (<3.6); CPK CREATINE PHOSPHOKINASE 64 U/L (34-145); CREATININE FOR GFR 0.72 MG/DL (0.55-1.30); GLOMERULAR FILTRATION RATE > 90.0 (>60); GLUCOSE, FASTING 88 MG/DL (60-100); HDL CHOLESTEROL 34.5 MG/DL (>40); LDL CHOLESTEROL 56.1 MG/DL (<100); MB/CK RELATIVE INDEX 1.56 (< OR =4); NON-HDL-C 73.5 MG/DL; POTASSIUM SERUM 4.2 MMOL/L (3.5-5.1); SODIUM LEVEL 140 MMOL/L (136-145); TOTAL PROTEIN 7.2 G/DL (5.7-8.2); TRIGLYCERIDES LEVEL 87 MG/DL (<150)
[2024-12-27 16:56] LABS: FREE T4 1.45 NG/DL (0.89-1.76); THYROID STIMULATING HORMONE 1.993 uIU/ML (0.55-4.78)
== END ==
LOC: M PLALAB 12:26
PROVIDERS: ATTEND Physician Assistant Medical
DX: M79.89 Other specified soft tissue disorders (principal); R07.89 Other chest pain; R60.0 Localized edema

== ENCOUNTER → 2025-06-10 | Outpatient (REF) | payer OTHER ==
[~2025-06-10] MED LIST changes: -IBUP-1022 PO; +IBUP600T42 PO
== END ==
LOC: M LAB REF 12:09
PROVIDERS: ATTEND Student in an Organized Health Care Education/Training Program
DX: R30.0 Dysuria (principal)